=== PATIENT | female | born 1955 ===

== ENCOUNTER 2020-05-14 08:59 | Outpatient (REF) | payer MEDICARE, MEDICAID, SELFPAY | END 2020-05-14 09:00 | disposition home or self-care (01) | LOC: HO.LAB 08:59 | PROVIDERS: PCP Internal Medicine Geriatric Medicine; Visit Provider Internal Medicine | DX: Z20.828 Contact with and (suspected) exposure to other viral communicable diseases (principal) | CPT/HCPCS: 87635 ==

== ENCOUNTER 2020-08-03 09:42 | Outpatient (REF) | payer MEDICARE, MEDICAID, SELFPAY ==
[2020-08-04 12:04] LABS: BV Int Neg Control Negative (Negative); BV Int Pos Control Positive (Positive)
== END 2020-08-03 09:43 | disposition home or self-care (01) ==
LOC: HO.LAB 09:42
PROVIDERS: Visit Provider Obstetrics & Gynecology
DX: Z01.419 Encounter for gynecological examination (general) (routine) without abnormal findings (principal); B37.3 Candidiasis of vulva and vagina
CPT/HCPCS: 87480; 87510; 87660

== ENCOUNTER 2020-08-13 07:50 | Outpatient (REF) | payer MEDICARE, MEDICAID, SELFPAY | END 2020-08-13 07:51 | disposition home or self-care (01) | LOC: HO.LAB 07:50 | PROVIDERS: Visit Provider Internal Medicine | DX: Z20.822 Contact with and (suspected) exposure to COVID-19 (principal) | CPT/HCPCS: 36415; C9803; U0003 ==

== ENCOUNTER → 2020-09-25 15:03 | Outpatient (BNVA) | payer MEDICARE, MEDICAID, SELFPAY | PROVIDERS: PCP Internal Medicine Geriatric Medicine; Visit Provider Nurse Practitioner Family | DX: Z13.89 Encounter for screening for other disorder (principal) | CPT/HCPCS: Q3014 ==

== ENCOUNTER 2020-10-22 09:22 | Outpatient (REF) | payer MEDICARE, MEDICAID, SELFPAY ==
[2020-10-22 12:16] LABS: SARS COV2 PCR INHOUSE NEGATIVE (Negative)
== END 2020-10-22 09:23 | disposition home or self-care (01) ==
LOC: HO.LAB 09:22
PROVIDERS: Visit Provider Internal Medicine
DX: Z20.822 Contact with and (suspected) exposure to COVID-19 (principal)
CPT/HCPCS: C9803; U0003

== ENCOUNTER 2020-12-15 08:36 | Outpatient (REF) | payer MEDICARE, MEDICAID, SELFPAY ==
--- NOTE | ~2020-12-15 | MM_ITS ---
EXAMINATION: MM SCREENING DIGITAL BREAST TOMOSYNTHESIS, BILATERAL CLINICAL INFORMATION: Screening. Asymptomatic. The lifetime risk of breast cancer based on the Tyrer-Cuzick Model is 4%. COMPARISON: Mammography: 07/02/2019, 03/24/2017, 10/14/2015 TECHNIQUE: Digital breast tomosynthesis is performed in both the craniocaudal and mediolateral oblique views along with computer-aided detection (CAD). Synthesized 2D images are generated from the tomosynthesis. FINDINGS: There are scattered areas of fibroglandular density (ACR BI-RADS breast composition Category b). The left breast shows no interval mass or developing density or architectural abnormality. There are scattered bilateral benign vascular and some rim calcifications. The axilla and skin contours are unremarkable. The right CC view has questionable focal radiating lines just lateral to midline 4 cm from nipple on tomography. There is no definite correlate on MLO projection. This may represent incompletely compressed glandular tissue. Patient will be recalled for additional imaging. Remainder right breast unremarkable. MM/MM tomosynthesis screening BI IMPRESSION: 1. Right: Question of focal architectural changes CC view tomography. No correlate on MLO view. This may represent incompletely compressed glandular tissue. 2. Left: No mammographic evidence of malignancy. ASSESSMENT: BI-RADS 0: Incomplete - Need Additional Imaging Evaluation RECOMMENDATION: 1. Additional views of the right breast (3-D spot CC, 3-D rolled CC x2). 2. Targeted ultrasound if warranted after review of the additional views. 3. Radiology department staff will contact the patient for additional imaging. This patient's information was entered into a reminder system with a target due date for their next mammogram.
--- NOTE | ~2020-12-15 | MM_ITS ---
EXAMINATION: BONE DENSITOMETRY CLINICAL INDICATION: Other specified personal risk factors, not elsewhere classified. COMPARISON: Previous BD dated 11/12/2009 and baseline BD dated 10/25/2007. TECHNIQUE: Using a QuickBlox DXA System (software version: 13.1) manufactured by [employer], dual-energy x-ray absorptiometry was performed of the lumbar spine and left hip. The images are of good technical quality. Summary results are attached. FINDINGS: AP SPINE L1-L4: Current: BMD 1.101 g/cm2, Z-score 0.2, T-score -0.7, normal, 1.7% increase from previous, 3.6% decrease from baseline (<5% change is not significant). Prior: BMD 1.083 g/cm2. Baseline: BMD 1.142 g/cm2. LEFT FEMUR, NECK: Current: BMD 0.846 g/cm2, Z-score -0.3, T-score -1.4, osteopenia. Prior: BMD 0.948 g/cm2. Baseline: BMD 0.946 g/cm2. LEFT FEMUR, TOTAL: Current: BMD 0.941 g/cm2, Z-score 0.3, T-score -0.5, normal, 10.0% decrease from previous, 12.1% decrease from baseline (<5% change is not significant). Prior: BMD 1.045 g/cm2. Baseline: BMD 1.071 g/cm2. IDENTIFIED RISK FACTORS: Menopause, history of fracture (adult). HISTORY OF FRACTURE: Other. MEDICATIONS: None listed. MM/XR DEXA axial skeleton IMPRESSION: 1. DIAGNOSIS: Osteopenia based on the lowest T-score value of -1.4 in the femoral neck applying World Health Organization criteria. 2. 10-YEAR FRACTURE RISK PREDICTION, FRAX: Major osteoporotic fracture (clinical spine, forearm, hip or shoulder) 7.9%. Hip fracture 0.8%. 3. Treatment Recommendations: NOF guidelines recommend consideration for treatment in postmenopausal women and men age 50 and older presenting with the following: -A hip or vertebral (clinical or morphometric) fracture. -T-score less than or equal to -2.5 at the femoral neck or spine after appropriate evaluation to exclude secondary causes. -Low bone mass at the hip or spine and a 10-year fracture probability by FRAX of greater than or equal to 3% for hip fracture or greater than or equal to 20% for major osteoporotic fracture based on the [place] adapted WHO algorithm. 4. Other Recommendations: All treatment decisions require clinical judgment and consideration of individual patient factors, including patient preferences, comorbidities, previous drug use, risk factors not captured in the FRAX model (e.g. frailty, falls, vitamin D deficiency, increased bone turnover, interval significant decline in bone density) and possible under or overestimation of fracture risk by FRAX. Additional medical evaluation for secondary cause of low bone mineral density may be appropriate. FUTURE SCAN RECOMMENDATION: People with diagnosed cases of osteoporosis or at high risk for fracture should have regular bone mineral density tests. For patients eligible for Medicare, routine testing is allowed once every 2 years. The testing frequency can be increased to one year for patients who have rapidly progressing disease, those who are receiving or discontinuing medical therapy to restore bone mass, or have additional risk factors.
== END 2020-12-15 08:37 | disposition home or self-care (01) ==
LOC: HO.MAMMO 08:36
PROVIDERS: PCP Internal Medicine Geriatric Medicine; Visit Provider Obstetrics & Gynecology
DX: Z12.31 Encounter for screening mammogram for malignant neoplasm of breast (principal); Z13.820 Encounter for screening for osteoporosis; M85.80 Other specified disorders of bone density and structure, unspecified site; Z78.0 Asymptomatic menopausal state; Z91.89 Other specified personal risk factors, not elsewhere classified; Z87.81 Personal history of (healed) traumatic fracture
CPT/HCPCS: 77063; 77067; 77080

== ENCOUNTER 2020-12-18 10:17 | Outpatient (REF) | payer MEDICARE, MEDICAID, SELFPAY ==
--- NOTE | ~2020-12-18 | MM_ITS ---
EXAMINATION: MM DIAGNOSTIC DIGITAL BREAST TOMOSYNTHESIS, RIGHT CLINICAL INFORMATION: Region of architectural distortion anterior upper outer aspect. COMPARISON: Mammography: 12/15/2020 and studies going back to 10/27/2008 TECHNIQUE: Digital breast tomosynthesis is performed. 2D images are generated from the tomosynthesis. The following views are obtained: Right breast craniocaudal rolled views as well as spot compression right craniocaudal view. FINDINGS: There are scattered areas of fibroglandular density (ACR BI-RADS breast composition Category b). Additional imaging demonstrates persistence of a region of architectural distortion about the upper outer aspect of the right breast approximately 4 cm from the nipple. There appears to be a new 4 mm well-circumscribed density in this location as some architectural distortion is seen to have been present to some degree dating back to 10/27/2008. Patient gives a history of previous breast biopsy but she does not remember if it was the right or left breast. Looking back on old information sheet of 2008, there is mention of a left-sided breast biopsy. We will try to obtain old studies and biopsy from [facility]. This region of architectural distortion may be related to a radial scar and with new 4 mm circumscribed density would consider stereotactic core biopsy. Targeted right breast ultrasound to the upper outer aspect did not demonstrate any region of suspicious cystic or solid mass. No region of suspicious distal sound shadowing appreciated. At the 9 o'clock position approximately 6 cm from nipple, there is a 2 x 3 mm cyst. Results are discussed with the patient at time of visit. MM/MM tomosynthesis added views R IMPRESSION: Region of architectural distortion about the anterior upper outer aspect of the right breast. A 4 mm circumscribed density associated with this region. Patient is unaware of which breast she had a previous biopsy on. By history, her history sheet from 2008 mentions left biopsy however, no reports are available from [facility] and we will attempt to obtain reports and imaging. The region of architectural distortion may represent a radial scar. With this appearance being similar to studies dating back to 2008. ASSESSMENT: BI-RADS 0: Incomplete -attempt to obtain previous studies from [facility]. RECOMMENDATION: Obtain imaging from [facility].
--- NOTE | ~2020-12-18 | US_ITS ---
EXAMINATION: US DIAGNOSTIC ULTRASOUND BREAST, RIGHT CLINICAL INFORMATION: Region of architectural distortion upper outer aspect. COMPARISON: Mammography of same day and studies dating back to October 27, 2008. TECHNIQUE: Ultrasound of the breast is performed with real-time huber scale imaging and color Doppler. FINDINGS: Targeted right breast ultrasound to the upper outer aspect did not demonstrate any region of suspicious cystic or solid mass. No region of suspicious distal sound shadowing appreciated. At the 9:00 position approximately 6 cm from nipple there is a 2 x 3 mm cyst. Results are discussed with the patient at time of visit. US/US breast RT limited IMPRESSION: Region of architectural distortion about the anterior upper outer aspect of the right breast. 4 mm circumscribed density associated with this region. Patient is unaware of this breast should had a previously biopsied on. By history questionnaire from 2008 mentions left biopsy however no reports are available from [facility] and we'll attempt to obtain reports and imaging. The region of architectural distortion may represent a radial scar. With this appearance being similar to studies dating back to 2008. ASSESSMENT: BI-RADS 0: Incomplete -obtain old films. RECOMMENDATION: Obtain imaging from [facility]. .
== END 2020-12-18 10:18 | disposition home or self-care (01) ==
LOC: HO.MAMMO 10:17
PROVIDERS: Visit Provider Obstetrics & Gynecology
DX: N64.89 Other specified disorders of breast (principal)
CPT/HCPCS: 76642; 77061; 77065

== ENCOUNTER → 2020-12-30 14:58 | Outpatient (BNVA) | payer MEDICARE, MEDICAID, SELFPAY | PROVIDERS: PCP Internal Medicine Geriatric Medicine; Referring Provider Internal Medicine Geriatric Medicine; Visit Provider Surgery | DX: R92.8 Other abnormal and inconclusive findings on diagnostic imaging of breast (principal) | CPT/HCPCS: 99202 ==

== ENCOUNTER 2020-12-31 07:54 | Outpatient (REF) | payer MEDICARE, MEDICAID, SELFPAY ==
--- NOTE | ~2020-12-31 | MM_ITS ---
EXAMINATION: STEREOTACTIC TOMOSYNTHESIS-GUIDED VACUUM-ASSISTED BREAST BIOPSY, RIGHT SPECIMEN RADIOGRAPH, RIGHT POST PROCEDURE DIGITAL MAMMOGRAM, RIGHT CLINICAL INFORMATION: Region of architectural distortion central superior aspect right breast. COMPARISON: December 18, 2020 and studies dating back to July 26, 2011. TECHNIQUE/PROCEDURE: Informed consent was obtained from the patient after discussion of the benefits, risks, and alternatives to biopsy today. Patient appeared to understand. Gave opportunity for questions. Patient signed consent form. BIOPSY TABLE: Bitbar Affirm Prone Biopsy System. LESION: Distortion. LOCAL ANESTHESIA: 8 mL 1% lidocaine; 10 mL 1% lidocaine with epinephrine. DERMATOTOMY: Single skin maria del rosario dermatotomy performed. NEEDLE: [employer] Eviva 9-gauge vacuum assisted core biopsy device. APPROACH: craniocaudal. TARGETING: Digital breast tomosynthesis used for targeting. CORES: 12. CLIP: [employer] SecurMark Barrel-shaped marker. SPECIMEN RADIOGRAPH: Specimen radiograph is taken in separate room using digital mammography. POST PROCEDURE UNILATERAL DIGITAL MAMMOGRAM: The post biopsy mammogram is performed in separate room using separate digital mammography equipment from the biopsy procedure. Craniocaudal and 90 degree mediolateral views are obtained. There are scattered areas of fibroglandular density (breast composition category: b). The clip marker is in position. The patient tolerated the procedure well. No immediate complications. Home instructions reviewed with the patient. Final pathology results are pending. MM/MM stereotactic biopsy RT IMPRESSION: 1. Digital tomosynthesis-guided core biopsy right breast with clip placement. 2. Specimen radiograph taken and post procedure mammogram. There is satisfactory positioning of the biopsy clip. 3. Final pathology results pending. An addendum report will be issued.
== END 2020-12-31 07:55 | disposition home or self-care (01) ==
LOC: HO.MAMMO 07:54
PROVIDERS: Visit Provider Surgery
DX: R92.8 Other abnormal and inconclusive findings on diagnostic imaging of breast (principal)
CPT/HCPCS: 19081; 88305; A4648

== ENCOUNTER → 2021-01-05 08:55 | Outpatient (BNVA) | payer MEDICARE, MEDICAID, SELFPAY | PROVIDERS: PCP Internal Medicine Geriatric Medicine; Visit Provider Surgery | DX: R92.8 Other abnormal and inconclusive findings on diagnostic imaging of breast (principal) | CPT/HCPCS: 99212 ==

== ENCOUNTER 2021-01-27 08:48 | Day surgery (SDC) | payer MEDICARE, MEDICAID, SELFPAY ==
--- NOTE | 2021-01-26 10:47 | P.CONAN_ITS ---
Documented by User: Torie Maldonado 01/26/21 10:48 HPI - Anesthesia Eval Consult details Narrative: 65yo F for Colonoscopy PMFSH Active Problems Active Problems: All Active Problems (Updated 01/20/21 @ 14:06 by Yuni Vega) Osteopenia (Acute) Abnormal mammogram of right breast (Acute) Past Medical History Medical History (Updated 01/20/21 @ 14:06 by Yuni Vega) Asthma GERD (gastroesophageal reflux disease) HTN (hypertension) Hyperlipidemia Rheumatoid arthritis Vaginal atrophy Family History Family History Mother HTN (hypertension) Surgical History Surgical History (Updated 01/20/21 @ 14:07 by Yuni Vega) H/O colonoscopy H/O knee surgery History of cholecystectomy History of tubal ligation Hx of hand surgery Social History Social History Household Members: Family Alcohol intake: current Alcohol intake frequency: does not drink Patient Tobacco Use Status: Never used Tobacco Use of substances other than those prescribed or required for medical reasons: No Have you been hit, kicked, punched, or otherwise hurt by someone within the past year? If so, by whom?: No Are you DNR?: No Advance Directives: No Advance Directives Information Provided: Yes Gender identity: female Meds Allergies Allergy/AdvReac Type Severity Reaction Status Date / Time AMBROSE Inhibitors Allergy Mild Rash Verified 01/20/21 14:09 Home Medications Medication Instructions Recorded Confirmed Last Taken Type albuterol sulfate 90 mcg/actuation 1 inh INHALATION Q4H PRN 12/30/20 01/20/21 Unknown History aerosol inhaler chlorthalidone 25 mg tablet 25 mg PO DAILY 12/30/20 01/20/21 Unknown History fluticasone propionate 50 1 spray INTRANASAL DAILY 12/30/20 01/20/21 Unknown History mcg/actuation nasal spray,suspension montelukast 10 mg tablet 10 mg PO QPM 12/30/20 01/20/21 Unknown History omeprazole 20 mg capsule,delayed 20 mg PO DAILY 12/30/20 01/20/21 Unknown History release pravastatin 20 mg tablet 20 mg PO DAILY 12/30/20 01/20/21 Unknown History sertraline 100 mg tablet 100 mg PO BID 12/30/20 01/20/21 Unknown History topiramate 50 mg tablet 50 mg PO DAILY 12/30/20 01/20/21 Unknown History Exam Exam Date and Time: January 26, [id number] Assessment and Plan Assessment Anesthesia Assessment: Chart Reviewed Documented by User: Faby Baptiste 01/27/21 09:57 [facility] Past Medical History Medical History (Updated 01/20/21 @ 14:06 by Yuni Vega) Asthma GERD (gastroesophageal reflux disease) HTN (hypertension) Hyperlipidemia Rheumatoid arthritis Vaginal atrophy Family History Family History Mother HTN (hypertension) Surgical History Surgical History (Updated 01/20/21 @ 14:07 by Yuni Vega) H/O colonoscopy H/O knee surgery History of cholecystectomy History of tubal ligation Hx of hand surgery Social History Social History Household Members: Family Alcohol intake: current Alcohol intake frequency: does not drink Patient Tobacco Use Status: Never used Tobacco Use of substances other than those prescribed or required for medical reasons: No Have you been hit, kicked, punched, or otherwise hurt by someone within the past year? If so, by whom?: No Are you DNR?: No Advance Directives: No Advance Directives Information Provided: Yes Gender identity: female Meds Allergies Allergy/AdvReac Type Severity Reaction Status Date / Time AMBROSE Inhibitors Allergy Mild Rash Verified 01/20/21 14:09 Home Medications Medication Instructions Recorded Confirmed Last Taken Type albuterol sulfate 90 mcg/actuation 1 inh INHALATION Q4H PRN 12/30/20 01/20/21 Unknown History aerosol inhaler chlorthalidone 25 mg tablet 25 mg PO DAILY 12/30/20 01/20/21 Unknown History fluticasone propionate 50 1 spray INTRANASAL DAILY 12/30/20 01/20/21 Unknown History mcg/actuation nasal spray,suspension montelukast 10 mg tablet 10 mg PO QPM 12/30/20 01/20/21 Unknown History omeprazole 20 mg capsule,delayed 20 mg PO DAILY 12/30/20 01/20/21 Unknown History release pravastatin 20 mg tablet 20 mg PO DAILY 12/30/20 01/20/21 Unknown History sertraline 100 mg tablet 100 mg PO BID 12/30/20 01/20/21 Unknown History topiramate 50 mg tablet 50 mg PO DAILY 12/30/20 01/20/21 Unknown History Exam Airway Mallampati Class: II TM Dist: >3cm Denture: Upper and Lower Heart: rrr Lungs: cta Assessment and Plan Assessment Anesthesia Assessment: Anesthesia Plan Discussed and Chart Reviewed Final Anesthetic Review NPO: Yes (Sip water with med) ASA Class: III Final Preanesthetic Review: No Changes in Pt Med Stat and Consent Obtained/Reviewed Patient Risk: Intermediate Procedure Risk: Intermediate Anesthetic Plan Anesthetic Plan: MAC: Disposition: Standard PACU
[2021-01-27 09:00] VITALS: BMI 38.0
[2021-01-27 09:30] VITALS: BP 173/75; PULSE 89; RESP 18; TEMP 37.2; O2SAT 98
--- NOTE | 2021-01-27 09:40 | MHC.SHP ---
Pre-Procedural Eval Section A Date of Service: 01/27/21 Section B Chief Complaint: screening Relevant Family History (Specify if Yes): No Relevant Social History: None Present Medications: see Short Stay Collaborative assessment Medical History: Significant History (Asthma GERD (gastroesophageal reflux disease) HTN (hypertension) Hyperlipidemia Rheumatoid arthritis Vaginal atrophy) History of Previous Operations: Relevant previous surgery/procedure and date(s) (H/O colonoscopy H/O knee surgery History of cholecystectomy History of tubal ligation Hx of hand surgery) Allergies: Allergies Allergy/AdvReac Type Severity Reaction Status Date / Time AMBROSE Inhibitors Allergy Mild Rash Verified 01/20/21 14:09 Review of Systems Sugical H&P ROS: Negative: Constitution, Cardiovascular, Respiratory, Neurological, Psychiatric, Hem-Onc, Allergic/Immunologic, Gastrointestinal, Genitourinary, Musculoskeletal, Integumentary, Endocrine and Eyes/Ears/Nose/Throat Exam Surgical H&P Exam: Normal: HEENT, Normal: Heart, Normal: Lungs, Normal: Extremities, Normal: Abdomen, Normal: Skin and Normal: Neurological Plan Diagnosis/Plan: Unchanged I have reviewed the history and physical and performed a pertinent physical examination on my patient. No changes have occurred unless specified.
--- NOTE | 2021-01-27 10:08 | P.BOP_ITS ---
Brief Operative Note Date of Service: 01/27/21 Pre-op diagnosis: colon screening Post-op diagnosis: same Procedure: see op note Surgeon: Isaiah Camargo MD Anesthesia: MAC Was an General Manager [employer] Production used for this Procedure?: No Estimated blood loss (mL): 0 Condition: stable Disposition: PACU
--- NOTE | 2021-01-27 10:08 | W.PM.OPN ---
Operative Note Operative Note Date of Service: 01/27/21 Narrative: Operative Information Procedure Description: Colonoscopy COLONOSCOPY Instrument: Olympus variable stiffness pediatric scope 190L Colonoscopy Monitoring: Vital signs and clinical assessment, continuous EKG monitoring, Pulse oximetry, Carbon Dioxide monitoring and blood pressure monitoring were done throughout the procedure. Colon withdrawal time was 14 minutes. Procedure: The patient was placed in the left lateral decubitis position and pre-procedure medications were administered. After a digital rectal examination of the ano-rectum, the video colonoscope was inserted into the rectum and advanced through the colon to the cecum/TI. The colonoscope was slowly withdrawn in a retrograde panoramic fashion and the colon mucosa was carefully examined including a retroflexed view of the rectum. Findings and interventions are described below. Procedure Difficulty:moderate due to looping Findings: Terminal Ileum-normal Cecum:normal, one prominent fold vs sessile polyp at appendiceal orifice 5-7 mm removed with forceps Ascending Colon: normal Transverse Colon -normal Descending Colon:normal Sigmoid Colon: normal Rectum: Retroflexion with small internal hemorrhoids, grade I Anorectum - normal Colon preparation: [place] Bowel Preparation Scale Right colon; 2 Transverse colon: 2 Left colon; 2 (0 = Unprepared colon segment with mucosa not seen due to solid stool that cannot be cleared. 1 = Portion of mucosa of the colon segment seen, but other areas of the colon segment not well seen due to staining, residual stool and/or opaque liquid. 2 = Minor amount of residual staining, small fragments of stool and/or opaque liquid, but mucosa of colon segment seen well. 3 = Entire mucosa of colon segment seen well with no residual staining, small fragments of stool or opaque liquid) Impression and Post Procedure Diagnosis: polyp internal hemorrhoids Plan: High fiber diet leaflet Avoid straining at stool, epsom salts and sitz bath, anusol supps or cream Repeat Colonoscopy in 5 years if adenoma, 10 yrs if benign or earlier if clinically indicated Above findings were reviewed with the patient and relevant handouts were provided if indicated.
[2021-01-27] MEDS: Lactated Ringers 1,000 ML 50 ML IVCONT (10:20)
[2021-01-27 10:52] VITALS: BP 101/61; PULSE 62; RESP 12; TEMP 36.1; O2SAT 97
[2021-01-27 11:07] VITALS: BP 92/65; PULSE 69; RESP 14; O2SAT 96
[2021-01-27 11:23] VITALS: BP 149/78; PULSE 66; RESP 18; TEMP 37; O2SAT 98
== END 2021-01-27 12:25 | disposition home or self-care (01) ==
PROVIDERS: PCP Internal Medicine Geriatric Medicine; Visit Provider Internal Medicine Gastroenterology
PROC: 0DJD8ZZ Inspection of Lower Intestinal Tract, Via Natural or Artificial Opening Endoscopic (ICD-10-PCS; CPT 45378; principal; 2021-01-27 10:00)
DX: Z12.11 Encounter for screening for malignant neoplasm of colon (principal); D12.0 Benign neoplasm of cecum; K64.0 First degree hemorrhoids; K21.9 Gastro-esophageal reflux disease without esophagitis; M06.9 Rheumatoid arthritis, unspecified; E78.5 Hyperlipidemia, unspecified; Z79.899 Other long term (current) drug therapy; Z79.51 Long term (current) use of inhaled steroids; Z90.49 Acquired absence of other specified parts of digestive tract; Z88.8 Allergy status to other drugs, medicaments and biological substances
CPT/HCPCS: 45380; 88305

== ENCOUNTER → 2021-02-15 13:52 | Outpatient (BNVA) | payer MEDICARE, MEDICAID, SELFPAY | PROVIDERS: Visit Provider Nurse Practitioner Family | DX: Z13.89 Encounter for screening for other disorder (principal) | CPT/HCPCS: Q3014 ==

== ENCOUNTER 2021-06-29 15:02 | Outpatient (REF) | payer MEDICARE, MEDICAID, SELFPAY ==
--- NOTE | ~2021-06-29 | MM_ITS ---
EXAMINATION: MM DIAGNOSTIC DIGITAL MAMMOGRAPHY, RIGHT CLINICAL INFORMATION: Six-month follow-up benign right stereotactic biopsy 12/31/2020 performed for subtle architectural changes. Pathology consistent with benign breast tissue with fibrocystic changes. Today's exam represents new baseline post sampling. The lifetime risk of breast cancer based on the Tyrer-Cuzick Model is 3%. COMPARISON: Mammography: 12/31/2020, 12/18/2020, 12/15/2020 (BI-RADS 0), 07/02/2019 TECHNIQUE: Digital mammography is performed in craniocaudal and mediolateral oblique views along with computer-aided detection (CAD). Additional spot CC and spot MLO views are obtained. FINDINGS: There are scattered areas of fibroglandular density (ACR BI-RADS breast composition Category b). There is a biopsy clip marker anterior 11:30 o'clock position. There are increased architectural changes related to the biopsy. Review of the stereotactic report notes 12 cores obtained. The clip marker is in expected position to the targeted area without accordion effect. The remainder of the right breast is unremarkable. Management plan is for diagnostic mammography at time of annual bilateral exam, due in 6 months. Results are discussed with the patient at time of visit, using an car stower. MM/MM diagnostic mammo unilat RT IMPRESSION: 1. Minor scarring at site of stereotactic sampling. Clip marker is in expected position. 2. This exam will serve as baseline for followup. ASSESSMENT: BI-RADS 3: Probably Benign RECOMMENDATION: Diagnostic mammography at time of next annual exam, due in 6 months. This patient's information was entered into a reminder system with a target due date for their next mammogram.
== END 2021-06-29 15:03 | disposition home or self-care (01) ==
LOC: HO.MAMMO 15:02
PROVIDERS: PCP Internal Medicine Geriatric Medicine; Visit Provider Obstetrics & Gynecology
DX: R92.8 Other abnormal and inconclusive findings on diagnostic imaging of breast (principal); Z98.890 Other specified postprocedural states
CPT/HCPCS: 77065

== ENCOUNTER 2021-07-06 07:36 | Outpatient (REF) | payer MEDICARE, MEDICAID, SELFPAY | END 2021-07-06 07:37 | disposition home or self-care (01) | LOC: HO.LAB 07:36 | PROVIDERS: Visit Provider Internal Medicine | DX: Z20.822 Contact with and (suspected) exposure to COVID-19 (principal) | CPT/HCPCS: C9803; U0003; U0005 ==

== ENCOUNTER 2021-12-29 13:25 | Outpatient (REF) | payer MEDICARE, MEDICAID, SELFPAY ==
--- NOTE | ~2021-12-29 | MM_ITS ---
EXAMINATION: MM DIAGNOSTIC DIGITAL BREAST TOMOSYNTHESIS, BILATERAL CLINICAL INFORMATION: Follow-up status post right breast material biopsy. Due for yearly mammogram. The lifetime risk of breast cancer based on the Tyrer-Cuzick Model is 3.7%. COMPARISON: Mammography: June 29, 2021 and studies dating back to October 14, 2015 TECHNIQUE: Digital breast tomosynthesis is performed in both the craniocaudal and mediolateral oblique views along with computer-aided detection (CAD). Synthesized 2D images are generated from the tomosynthesis. FINDINGS: There are scattered areas of fibroglandular density (ACR BI-RADS breast composition Category b). There are no new significant masses, abnormal calcifications, or other abnormalities. Small region of architectural distortion associated with right breast biopsy and clip. Results are provided to the patient at time of visit by the technologist. MM/MM tomosynthesis diagnostic BI IMPRESSION: There are no significant changes from prior study. ASSESSMENT: BI-RADS 2: Benign RECOMMENDATION: Routine annual mammography screening due in 12 months. This patient's information was entered into a reminder system with a target due date for their next mammogram.
== END 2021-12-29 13:26 | disposition home or self-care (01) ==
LOC: HO.MAMMO 13:25
PROVIDERS: Visit Provider Internal Medicine Geriatric Medicine
DX: R92.2 Inconclusive mammogram (principal)
CPT/HCPCS: 77062; 77066

== ENCOUNTER 2022-06-16 20:23 | Emergency (ER) | payer MEDICARE, MEDICAID, SELFPAY ==
[2022-06-16] VITALS (7 sets, daily range): BP systolic 167–202; BP diastolic 73–99; PULSE 99–112; RESP 18–21; TEMP 36.6–36.8; O2SAT 95–99; BMI 32.8
--- NOTE | ~2022-06-16 | XR_ITS ---
EXAMINATION: XR CHEST CLINICAL INFORMATION: Cough and shortness of breath COMPARISON: 08/29/2019 TECHNIQUE: Frontal view of the chest was obtained. FINDINGS: No significant abnormality is noted involving the heart, lungs, mediastinum, bony thorax or soft tissues. XR/XR chest 1V IMPRESSION: Unremarkable examination.
--- NOTE | 2022-06-16 21:01 | ECG_ITS ---
Test Reason : UPPER RESP Blood Pressure : / mmHG Vent. Rate : 103 BPM Atrial Rate : 103 BPM P-R Int : 142 ms QRS Dur : 086 ms QT Int : 356 ms P-R-T Axes : 022 015 061 degrees QTc Int : 466 ms Sinus tachycardia Otherwise normal ECG When compared with ECG of 29-AUG-2019 06:56, No significant change was found Referred By: Generic ED Physician Electronically Signed By:RONI CACERES MD
[2022-06-16 21:17] LABS: MANUAL DIFF FLAG NO
[2022-06-16 21:18] LABS: Basophils Percent Auto 0.2 % (0-2); Eosinophils Absolute Auto 0.2 X10*3/uL (0.0-0.4); Eosinophils Percent Auto 1.5 % (0-4); Hematocrit 38.9 % (37.0-47.0); Hemoglobin 12.3 g/dl (12.0-16.0); Imm Gran Abs Auto 0.02 X10*3/uL (0.00-0.03); Imm Gran Pct Auto 0.2 % (0.0-0.4); Lymphocytes Absolute Auto 1.6 X10*3/uL (1.2-4.9); Lymphocytes Percent Auto 15.6 % (20-40); Mean Corpuscular HGB Conc 31.6 g/dl (31.0-35.0); Mean Corpuscular Hemoglobin 26.7 pg (27.0-33.0); Mean Corpuscular Volume 84.6 fL (80.0-98.0); Mean Platelet Volume 9.6 fL (9.4-12.3); Monocytes Absolute Auto 0.8 X10*3/uL (0.1-1.2); Monocytes Percent Auto 7.9 % (2-11); Neutrophils Absolute Auto 7.4 x10*3/uL (2.0-8.3); Neutrophils Percent Auto 74.6 % (45-73); Platelet Count 187 X10*3/uL (160-400); Red Cell Distribution Width 13.7 % (11.0-16.0)
--- NOTE | 2022-06-16 21:24 | ED.URI ---
HPI - URI/Sore Throat General Chief Complaint: Upper Respiratory Symptoms Stated Complaint: Asthma, cough Time Seen by Provider: 06/16/22 21:22 Source: patient Mode of arrival: ambulatory Limitations: no limitations History of Present Illness HPI Narrative: Patient been feeling congested for the last 2 days with history of asthma and tried to use a nebulizing treatment without much response coughing with mucoid expectoration no fever does have a running nose is clear no other family member sick Related Data Home Medications Medication Instructions Recorded Confirmed albuterol sulfate 90 mcg/actuation 1 inh inhalation Q4H PRN Wheezing 12/30/20 01/20/21 aerosol inhaler chlorthalidone 25 mg tablet 25 mg PO DAILY 12/30/20 01/20/21 fluticasone propionate 50 1 spray intranasal DAILY 12/30/20 01/20/21 mcg/actuation nasal spray,suspension montelukast 10 mg tablet 10 mg PO QPM 12/30/20 01/20/21 omeprazole 20 mg capsule,delayed 20 mg PO DAILY 12/30/20 01/20/21 release pravastatin 20 mg tablet 20 mg PO DAILY 12/30/20 01/20/21 sertraline 100 mg tablet 100 mg PO BID 12/30/20 01/20/21 topiramate 50 mg tablet 50 mg PO DAILY 12/30/20 01/20/21 Previous Rx's Medication Instructions Recorded bisacodyl 5 mg tablet,delayed 10 mg PO ONCE 1 day #2 tabs 09/25/20 release (Dulcolax (bisacodyl)) calcium carbonate 600 mg calcium 1,200 mg PO DAILY #180 tabs 12/16/20 (1,500 mg) tablet cholecalciferol (vitamin D3) 10 10 mcg PO DAILY #90 caps 12/16/20 mcg (400 unit) capsule (Vitamin D3) albuterol sulfate 2.5 mg/3 mL 2.5 mg (3 mL) inhalation Q4-6H PRN 06/17/22 (0.083 %) solution for nebulization shortness of breath or wheezing #90 mL prednisone 20 mg tablet 40 mg PO DAILY #10 tabs 06/17/22 Allergies Allergy/AdvReac Type Severity Reaction Status Date / Time AMBROSE Inhibitors Allergy Mild Rash Verified 02/15/21 13:53 Review of Systems Review of Systems: Yes all other systems are reviewed and are negative PMFSH Past Medical History Medical History Asthma GERD (gastroesophageal reflux disease) HTN (hypertension) Hyperlipidemia Rheumatoid arthritis Vaginal atrophy Surgical History H/O colonoscopy H/O knee surgery History of cholecystectomy History of tubal ligation Hx of hand surgery Family History Family History Mother HTN (hypertension) Social History Social History Household Members: Family Alcohol intake: never Patient Tobacco Use Status: Never used Tobacco Smoked in Last 30 Days: No Use of substances other than those prescribed or required for medical reasons: No Advance Directives: No Advance Directives Information Provided: No Gender identity: Female Physical Exam Vital Signs: Vital Signs: Last Vital Signs Temp 98.7 F 06/17/22 00:37 Pulse 111 H 06/17/22 00:37 Resp 18 06/17/22 00:37 BP 136/69 06/17/22 00:37 Pulse Ox 97 06/17/22 00:37 O2 Del Method 06/17/22 00:37 BMI result Body Mass Index 32.8 Appearance: Alert. Oriented X3. No acute distress. Eyes:normal ENT: Pharynx normal. Oral Mucosa moist clear rhinorrhea Neck: Normal inspection. Neck supple. CVS: Normal heart rate and rhythm. Pulses normal. Respiratory: No respiratory distress. Equal air entry bilateral, bilateral wheezing no rales Abdomen: Soft and nontender. Bowel sounds are present, Skin: Skin warm and dry. Normal skin color. Normal skin turgor. Extremities: No lower extremity edema. No calf tenderness Neuro: Oriented X 3. No motor deficit. Medications Administered Discontinued Medications Generic Name Dose Route Start Last Admin Trade Name Freq PRN Reason Stop Dose Admin Albuterol Sulfate 2.5 mg/ 5 mg 06/16/22 23:38 06/16/22 23:46 Albuterol Sulfate 2.5 mg INHALE 06/16/22 23:39 5 mg ONCE ONE Administration Albuterol Sulfate 2.5 mg/ 0 mg 06/16/22 21:35 06/16/22 21:49 Albuterol/Ipratropium 3 ml INHALE 06/16/22 21:36 1 each ONCE ONE Administration Methylprednisolone Sodium Succinate 125 mg 06/16/22 21:35 06/16/22 21:55 Methylprednisolone Sod Succ 125 Mg/2 Ml Vial IVPUSH 06/16/22 21:36 125 mg ONCE ONE Administration MDM - URI/Sore Throat MDM Narrative Medical decision making narrative: Patient feeling better after nebulizing treatment discharge patient home on prednisone advised to continue albuterol inhaler/nebulizing treatment Lab Data Attestation: I reviewed the patient's lab results. Result diagrams: 06/16/22 21:10 06/16/22 21:10 Labs: Lab Results 06/16/22 06/16/22 06/16/22 Range/Units 21:10 21:10 21:15 WBC 10.0 (4.8-10.8) X10*3/uL RBC 4.60 (4.20-5.50) X10*6/uL Hgb 12.3 (12.0-16.0) g/dl Hct 38.9 (37.0-47.0) % MCV 84.6 (80.0-98.0) fL MCH 26.7 L (27.0-33.0) pg MCHC 31.6 (31.0-35.0) g/dl RDW 13.7 (11.0-16.0) % Plt Count 187 (160-400) X10*3/uL MPV 9.6 (9.4-12.3) fL Immature Gran % (Auto) 0.2 (0.0-0.4) % Neut % (Auto) 74.6 H (45-73) % Lymph % (Auto) 15.6 L (20-40) % [place] % (Auto) 7.9 (2-11) % Eos % (Auto) 1.5 (0-4) % Baso % (Auto) 0.2 (0-2) % Lymph # (Auto) 1.6 (1.2-4.9) X10*3/uL [place] # (Auto) 0.8 (0.1-1.2) X10*3/uL Eos # (Auto) 0.2 (0.0-0.4) X10*3/uL Baso # (Auto) 0.0 (0.0-0.2) X10*3/uL Abs Immat Gran (auto) 0.02 (0.00-0.03) X10*3/uL Absolute Neuts (auto) 7.4 (2.0-8.3) x10*3/uL Absolute Nucleated RBC 0.000 (0.0-0.012) X10*3/uL Nucleated RBC % (auto) 0.0 (0.0-0.2) /100WBC Sodium 145 (135-145) mmol/L Potassium 4.2 (3.3-5.1) mmol/L Chloride 107 (96-108) mmol/L Carbon Dioxide 26 (22-29) mmol/L Anion Gap 16 (12-20) BUN 19 H (9-16) mg/dL Creatinine 0.91 (0.5-1.4) mg/dL Estim Creat Clear Calc 64.3 Estimated GFR > 60 Random Glucose 96 (60-115) mg/dL Calcium 9.9 (8.4-10.2) mg/dL Influenza Type A (PCR) NEGATIVE (Negative) Influenza Type B (PCR) NEGATIVE (Negative) RSV RNA Qual (PCR) NEGATIVE (Negative) SARS-CoV-2 RNA (RT-PCR) NEGATIVE (Negative) Discharge Plan Discharge Clinical Impression: Acute asthmatic bronchitis Patient Disposition: Home, Self-Care Instructions: Asthma (ED) Additional Instructions: Use albuterol nebulizing/inhaler as advised every 4-6 hours Prednisone as prescribed Follow with PCP if not better Prescriptions: New albuterol sulfate 2.5 mg /3 mL (0.083 %) solution for nebulization 2.5 mg inhalation Q4-6H PRN (Reason: shortness of breath or wheezing) Qty: 90 0RF prednisone 20 mg tablet 40 mg PO DAILY Qty: 10 0RF No Action calcium carbonate 600 mg calcium (1,500 mg) tablet 1,200 mg PO DAILY Qty: 180 3RF cholecalciferol (vitamin D3) [Vitamin D3] 10 mcg (400 unit) capsule 10 mcg PO DAILY Qty: 90 3RF topiramate 50 mg tablet 50 mg PO DAILY sertraline 100 mg tablet 100 mg PO BID omeprazole 20 mg capsule,delayed release(DR/EC) 20 mg PO DAILY albuterol sulfate 90 mcg/actuation HFA aerosol inhaler 1 inh inhalation Q4H PRN (Reason: Wheezing) fluticasone propionate 50 mcg/actuation spray,suspension 1 spray intranasal DAILY pravastatin 20 mg tablet 20 mg PO DAILY montelukast 10 mg tablet 10 mg PO QPM chlorthalidone 25 mg tablet 25 mg PO DAILY bisacodyl [Dulcolax (bisacodyl)] 5 mg tablet,delayed release (DR/EC) 10 mg PO ONCE 1 Days Qty: 2 0RF Rx Instructions: take 2 tabs at noon the day before your colonoscopy Interventions: ED Discharge Assessment Last Done: 06/17/22 00:38 Discharge Date/Time: 06/17/22 00:42 Print Language: Yemeni
[2022-06-16 21:34] LABS: Anion Gap 16 (12-20); Blood Urea Nitrogen 19 mg/dL (9-16); Calcium 9.9 mg/dL (8.4-10.2); Carbon Dioxide 26 mmol/L (22-29); Chloride 107 mmol/L (96-108); Creatinine Clr Calc Pharmacy 64.3; Estimated Glomerular Filt Rate > 60; Glucose Random 96 mg/dL (60-115); Potassium 4.2 mmol/L (3.3-5.1); Sodium 145 mmol/L (135-145)
[2022-06-16] MEDS: Albuterol Sulfate 2.5 MG, Albuterol/Iprat 2.5/0.5MG 3 ML 3 ML INHALE (21:49)
[2022-06-16] MEDS: methylPREDNISolone Sod Succ 125 MG/2 ML VIAL IVPUSH (21:55)
[2022-06-16 22:00] LABS: Influenza A PCR NEGATIVE (Negative); Influenza B PCR NEGATIVE (Negative); Resp Syncy Virus RNA Qual PCR NEGATIVE (Negative); SARS COV2 PCR INHOUSE NEGATIVE (Negative)
[2022-06-16] MEDS: Albuterol Sulfate 2.5 MG, Albuterol Sulfate (0.083%) 2.5 MG 5 MG INHALE (23:46)
[2022-06-17] VITALS: BP 138/69; PULSE 124; RESP 14; TEMP 37.1; O2SAT 95
[2022-06-17 00:37] VITALS: BP 136/69; PULSE 111; RESP 18; TEMP 37.1; O2SAT 97
== END 2022-06-17 00:42 | disposition home or self-care (01) ==
PROVIDERS: Emergency Provider Internal Medicine; PCP Internal Medicine Geriatric Medicine
DX: J45.909 Unspecified asthma, uncomplicated (principal); Z20.822 Contact with and (suspected) exposure to COVID-19; I10 Essential (primary) hypertension; E78.5 Hyperlipidemia, unspecified; Z79.02 Long term (current) use of antithrombotics/antiplatelets; Z79.899 Other long term (current) drug therapy
CPT/HCPCS: 0241U; 36415; 71045; 80048; 85025; 93005; 94640; 96374; 99284; 99285; J2930

== ENCOUNTER 2022-09-09 08:03 | Outpatient (REF) | payer MEDICARE, MEDICAID, SELFPAY ==
--- NOTE | ~2022-09-09 | XR_ITS ---
EXAMINATION: XR HIP, RIGHT CLINICAL INFORMATION: Severe right hip pain COMPARISON: None TECHNIQUE: Two views of the right hip. FINDINGS: Bones and soft tissues are normal. No fracture. Alignment is anatomic. Hip joint space is maintained. XR/XR hip RT min 2V IMPRESSION: Normal right hip.
== END 2022-09-09 08:04 | disposition home or self-care (01) ==
LOC: HO.XRAY 08:03
PROVIDERS: PCP Internal Medicine Geriatric Medicine; Visit Provider Internal Medicine Geriatric Medicine
DX: M25.551 Pain in right hip (principal)
CPT/HCPCS: 73502

== ENCOUNTER 2022-12-16 07:55 | Outpatient (REF) | payer MEDICARE, MEDICAID, SELFPAY ==
--- NOTE | ~2022-12-16 | XR_ITS ---
EXAMINATION: XR knee standing BI, XR knee LT 2V CLINICAL INFORMATION: Reason for Exam M25.569 - Pain in unspecified knee COMPARISON: None available at the time of this dictation. TECHNIQUE: Bilateral knee frontal standing, left Lateral view and patella sunrise view. FINDINGS: BONES: No fracture or dislocation is present. Cortical irregularity in the proximal fibula likely an old healed fracture. Intact Hardware plate and screws through the proximal right tibia seen on the frontal view. JOINTS: Narrowing of joint spaces and developed osteophytes from the edges of articular surfaces suggest degenerative osteoarthritis. SOFT TISSUE: Normal XR/XR knee standing BI IMPRESSION: Tricompartment moderate to early severe degenerative osteoarthritis. No significant knee joint effusion. An old healed fracture of the left fibula.
--- NOTE | ~2022-12-16 | XR_ITS ---
EXAMINATION: XR knee standing BI, XR knee LT 2V CLINICAL INFORMATION: Reason for Exam M25.569 - Pain in unspecified knee COMPARISON: None available at the time of this dictation. TECHNIQUE: Bilateral knee frontal standing, left Lateral view and patella sunrise view. FINDINGS: BONES: No fracture or dislocation is present. Cortical irregularity in the proximal fibula likely an old healed fracture. Intact Hardware plate and screws through the proximal right tibia seen on the frontal view. JOINTS: Narrowing of joint spaces and developed osteophytes from the edges of articular surfaces suggest degenerative osteoarthritis. SOFT TISSUE: Normal XR/XR knee LT 2V IMPRESSION: Tricompartment moderate to early severe degenerative osteoarthritis. No significant knee joint effusion. An old healed fracture of the left fibula.
== END 2022-12-16 07:56 | disposition home or self-care (01) ==
LOC: HO.HOSX 07:55
PROVIDERS: Visit Provider Physician Assistant
DX: M17.12 Unilateral primary osteoarthritis, left knee (principal)
CPT/HCPCS: 20610; 73560; 73565; 99202; J1040

== ENCOUNTER 2023-01-02 10:06 | Outpatient (REF) | payer MEDICARE, MEDICAID, SELFPAY ==
--- NOTE | ~2023-01-02 | MM_ITS ---
EXAMINATION: MM SCREENING DIGITAL BREAST TOMOSYNTHESIS, BILATERAL CLINICAL INFORMATION: Screening. Asymptomatic. Benign bight stereotactic biopsy for architectural changes central upper right breast 12/31/2020. The lifetime risk of breast cancer based on the Tyrer-Cuzick Model is 4%. COMPARISON: Mammography: 12/29/2021, 06/29/2021, 12/31/2020 TECHNIQUE: Digital breast tomosynthesis is performed in both the craniocaudal and mediolateral oblique views along with computer-aided detection (CAD). Synthesized 2D images are generated from the tomosynthesis. FINDINGS: There are scattered areas of fibroglandular density (ACR BI-RADS breast composition Category b). Parenchymal pattern is similar to prior study and there is no significant mass, interval architectural abnormality, or abnormal calcifications. Biopsy clip marker again seen in the anterior 11:00 right breast with surrounding minor scarring similar to prior study. There are scattered bilateral benign vascular and some rim calcifications. The axilla are unremarkable. MM/MM tomosynthesis screening BI IMPRESSION: No mammographic evidence of malignancy. ASSESSMENT: BI-RADS 2: Benign RECOMMENDATION: Routine annual mammography screening. This patient's information was entered into a reminder system with a target due date for their next mammogram.
== END 2023-01-02 10:07 | disposition home or self-care (01) ==
LOC: HO.MAMMO 10:06
PROVIDERS: PCP Internal Medicine Geriatric Medicine; Visit Provider Internal Medicine Geriatric Medicine
DX: Z12.31 Encounter for screening mammogram for malignant neoplasm of breast (principal)
CPT/HCPCS: 77063; 77067

== ENCOUNTER 2023-05-23 10:48 | Outpatient (REF) | payer MEDICARE, MEDICAID, SELFPAY ==
[2023-05-23 14:07] LABS: Alanine Aminotransferase 13 U/L (0-31); Albumin Level 4.4 g/dL (3.5-5.0); Alkaline Phosphatase 163 U/L (39-117); Anion Gap 14 (12-20); Aspartate Amino Transferase 16 U/L (5-31); Blood Urea Nitrogen 13 mg/dL (9-16); Calcium 10.1 mg/dL (8.4-10.2); Carbon Dioxide 25 mmol/L (22-29); Chloride 108 mmol/L (96-108); Cholesterol 173 mg/dL (<200); Estimated Glomerular Filt Rate 60; Glucose Random 103 mg/dL (60-115); HDL Cholesterol 57 mg/dL (>40); LDL Cholesterol Calculated 90 mg/dL (<100); Potassium 3.8 mmol/L (3.3-5.1); Sodium 143 mmol/L (135-145); Total Protein 7.6 g/dL (6.5-8.0); Triglycerides 133 mg/dL (<150)
[2023-05-23 14:13] LABS: ~HepC Num1 0.06 S/CO (0.00-0.79); ~Hepatitis C Antibody Nonreactive (Nonreactive)
== END 2023-05-23 10:49 | disposition home or self-care (01) ==
LOC: HO.HHCL 10:48
PROVIDERS: Visit Provider Internal Medicine Geriatric Medicine
DX: I10 Essential (primary) hypertension (principal); E78.00 Pure hypercholesterolemia, unspecified; Z11.59 Encounter for screening for other viral diseases
CPT/HCPCS: 36415; 80053; 80061; 86803

== ENCOUNTER 2023-05-29 10:45 | Outpatient (REF) | payer MEDICARE, MEDICAID, SELFPAY ==
[2023-05-29 12:20] LABS: Alanine Aminotransferase 17 U/L (0-31); Albumin Level 4.1 g/dL (3.5-5.0); Alkaline Phosphatase 157 U/L (39-117); Anion Gap 12 (12-20); Aspartate Amino Transferase 17 U/L (5-31); Bilirubin Direct 0.2 mg/dL (0.0-0.5); Bilirubin Total 0.7 mg/dL (0.0-1.0); Blood Urea Nitrogen 12 mg/dL (9-16); Calcium 9.3 mg/dL (8.4-10.2); Carbon Dioxide 26 mmol/L (22-29); Chloride 109 mmol/L (96-108); Estimated Glomerular Filt Rate > 60; Gamma Glutamyl Transpeptidase 25 U/L (7-33); Glucose Random 93 mg/dL (60-115); Potassium 3.7 mmol/L (3.3-5.1); Sodium 143 mmol/L (135-145); Total Protein 7.1 g/dL (6.5-8.0)
== END 2023-05-29 10:46 | disposition home or self-care (01) ==
LOC: HO.HHCL 10:45
PROVIDERS: Visit Provider Internal Medicine Geriatric Medicine
DX: R74.8 Abnormal levels of other serum enzymes (principal)
CPT/HCPCS: 36415; 80048; 80076; 82977

== ENCOUNTER 2023-06-04 03:44 | Emergency (ER) | payer MEDICARE, MEDICAID, SELFPAY ==
--- NOTE | ~2023-06-04 | XR_ITS ---
EXAMINATION: XR LUMBOSACRAL SPINE CLINICAL INFORMATION: Back pain. COMPARISON: None available. TECHNIQUE: Three views of the lumbosacral spine. FINDINGS: The alignment is normal. There is mild diffuse thoracolumbar disc degenerative change with loss of disc space, endplate change and osteophytes. There is no fracture. There is atherosclerotic plaque of the abdominal aorta. The soft tissues are unremarkable. XR/XR lumbar spine 2-3V IMPRESSION: Mild diffuse thoracolumbar disc degenerative change. No fracture.
[2023-06-04 03:49] VITALS: BP 179/93; PULSE 82; RESP 16; TEMP 36.2; O2SAT 98; BMI 34.7
--- NOTE | 2023-06-04 04:53 | PC.NURSE ---
pt reports lower back pain x 2 years worsening x 4 wks. pt denies injuries. PT previously with no improvement. pt states no improvement with tylenol. pt denies pain radiation. ambulatory with steady gait.
[2023-06-04 05:27] LABS: Appearance Urine Clear; Color Urine Yellow; Glucose Urine UA Negative (Negative); Leukocyte Esterase Urine Moderate (2+) (Negative); Nitrite Urine Negative (Negative); UMIC TRIGGER UACC YES; Urine Blood Negative (Negative); Urine Ketones Negative (Negative); Urine Protein Negative (Neg-Trace)
[2023-06-04 05:31] LABS: Bacteria Urine 1+ (None Seen); Hyaline Casts Urine 0-2 /LPF (0-2); RBC Urine 0-2 /HPF (0-2); UACC Culture Trigger YES; WBC Urine 21-50 /HPF (0-5)
[2023-06-04] MEDS: Ibuprofen 600 MG TABLET PO (06:23)
[2023-06-04 06:24] VITALS: BP 157/83; PULSE 74; RESP 16; O2SAT 99
--- NOTE | 2023-06-04 06:47 | ED.BACK ---
HPI - Back Pain/Injury General Chief Complaint: Back Pain/Injury Stated Complaint: Lower back pain Time Seen by Provider: 06/04/23 05:41 Source: patient Mode of arrival: ambulatory Limitations: no limitations History of Present Illness HPI Narrative: 68-year-old female came in for evaluation of low back pain for many years, pain is been constant in the mid back, no recent trauma or injury or falling. No dysuria, no frequency urination, no hematuria , no fever , no weakness, no numbness, no urinary incontinence. Related Data Home Medications Medication Instructions Recorded Confirmed albuterol sulfate 90 mcg/actuation 1 inh inhalation Q4H PRN Wheezing 12/30/20 01/20/21 aerosol inhaler chlorthalidone 25 mg tablet 25 mg PO DAILY 12/30/20 01/20/21 fluticasone propionate 50 1 spray intranasal DAILY 12/30/20 01/20/21 mcg/actuation nasal spray,suspension montelukast 10 mg tablet 10 mg PO QPM 12/30/20 01/20/21 omeprazole 20 mg capsule,delayed 20 mg PO DAILY 12/30/20 01/20/21 release pravastatin 20 mg tablet 20 mg PO DAILY 12/30/20 01/20/21 sertraline 100 mg tablet 100 mg PO BID 12/30/20 01/20/21 topiramate 50 mg tablet 50 mg PO DAILY 12/30/20 01/20/21 Previous Rx's Medication Instructions Recorded bisacodyl 5 mg tablet,delayed 10 mg (2 x 5 mg) PO ONCE 1 day #2 09/25/20 release (Dulcolax (bisacodyl)) tabs calcium carbonate 600 mg calcium 1,200 mg (2 x 600 mg calcium 12/16/20 (1,500 mg) tablet (1,500 mg)) PO DAILY #180 tabs cholecalciferol (vitamin D3) 10 10 mcg PO DAILY #90 caps 12/16/20 mcg (400 unit) capsule (Vitamin D3) albuterol sulfate 2.5 mg/3 mL 2.5 mg (3 mL) inhalation Q4-6H PRN 06/17/22 (0.083 %) solution for nebulization shortness of breath or wheezing #90 mL prednisone 20 mg tablet 40 mg (2 x 20 mg) PO DAILY #10 tabs 06/17/22 Allergies Allergy/AdvReac Type Severity Reaction Status Date / Time AMBROSE Inhibitors Allergy Mild Rash Verified 12/16/22 09:12 Review of Systems Review of Systems: all other systems are reviewed and are negative Constitutional: Reports as per HPI and Reports no additional constitutional complaints Eyes: Reports as per HPI and Reports no additional eye complaints Reports system reviewed and no additional complaints, except as documented Cardiovascular: Reports as per HPI and Reports no additional cardiovascular complaints Respiratory: Reports as per HPI and Reports no additional respiratory complaints Gastrointestinal: Reports as per HPI and Reports no additional gastrointestinal complaints Genitourinary: Reports no additional female genitourinary complaints Musculoskeletal: Reports no additional musculoskeletal complaints Skin/Breast: Reports system reviewed and no additional complaints, except as docu Psychiatric: Reports no additional psychiatric complaints Endocrine: Reports no additional endocrine complaints Hematologic/Lymphatic: Reports no additional hematologic/lymphatic complaints Allergic/Immunologic: Reports no additional allergic/immunologic complaints Reports system reviewed and no additional complaints, except as documented and Reports Abnormal speech present PMFSH Past Medical History Medical History Asthma GERD (gastroesophageal reflux disease) HTN (hypertension) Hyperlipidemia Rheumatoid arthritis Vaginal atrophy Surgical History H/O colonoscopy H/O knee surgery History of cholecystectomy History of tubal ligation Hx of hand surgery Family History Family History Mother HTN (hypertension) Social History Social History Household Members: Family Alcohol intake: never Patient Tobacco Use Status: Never used Tobacco Smoked in Last 30 Days: No Use of substances other than those prescribed or required for medical reasons: No Advance Directives: No Advance Directives Information Provided: Yes Gender identity: Female Physical Exam Vital Signs: Vital Signs: Last Vital Signs Temp 97.2 F 06/04/23 03:49 Pulse 74 06/04/23 06:24 Resp 16 06/04/23 06:24 BP 157/83 H 06/04/23 06:24 Pulse Ox 99 06/04/23 06:24 O2 Del Method Room Air 06/04/23 06:24 BMI result Body Mass Index 34.7 Vital signs have been reviewed and appear to be correct. Blood pressure elevated. Heart rate normal. Respiratory rate normal. Temperature normal. Oxygen saturation normal. Appearance: Alert. Oriented X3. No acute distress. Head: Normal external exam. Normocephalic. Atraumatic. No [place] signs noted. No raccoon eyes noted Eyes: PERRLA. EOMI. Conjunctiva and sclera normal. Eyelids normal. ENT: TM's Normal. Pharynx normal. Uvula midline. Moist mucous membranes. No trismus noted. No drooling noted. No muffled voice noted. Neck: Normal inspection. Neck supple. FROM. No adenopathy. Thyroid Normal. No meningeal signs. No neck mass noted. CVS: Normal heart rate and rhythm. Heart sound normal. No murmurs noted. Pulses normal throughout. Respiratory: No respiratory distress. Painless inspiration. Breath sounds normal. No wheezes/rales/rhonchi noted. Chest nontender. No accessory muscle usage noted or decreased air movement noted. Abdomen: Soft and nontender. Bowel sounds normal in all 4 quadrants. No distention noted. No organomegaly noted. No visible injury noted. Back: No CVA tenderness. Full range of motion noted. Skin: Skin warm and dry. Normal skin color. Normal skin turgor. No rashes/lesions/lacerations noted. Extremities: No lower extremity edema. Extremities exhibit normal range of motion. Extremities nontender. Neuro: Oriented X 3. Cranial nerve exam: II-XII are grossly intact No motor deficit. No sensory deficit. Reflexes normal. Course Reevaluation(s) Reevaluation #1: chronic back pain with no neurological deficit as discussed with the patient to follow-up with PCP take Tylenol/ ibuprofen if needed for pain. Time: 06:50 Medications Administered Discontinued Medications Generic Name Dose Route Start Last Admin Trade Name Freq PRN Reason Stop Dose Admin Ibuprofen 600 mg 06/04/23 05:40 06/04/23 06:23 Ibuprofen 600 Mg Tablet PO 06/04/23 05:41 600 mg ONCE ONE Administration Medical Decision Making Differential Diagnosis Differential Diagnoses: The differential diagnosis associated with the presentation includes ( UTI, kidney infection, chronic back pain, lumbar radiculopathy, muscular pain.) Admission/Observation Consideration of admission/observation: Escalation of care including admission/observation considered Lab Data MDM Lab Attestation statement: I reviewed the patient's lab results. Labs: Lab Results 11/12/23 Range/Units 05:20 Urine Color Yellow Urine Appearance Clear Urine pH 6.0 (5.0-9.0) Ur Specific [place] 1.020 (1.005-1.025) Urine Protein Negative (Neg-Trace) mg/dL Urine Glucose (UA) Negative (Negative) mg/dL Urine Ketones Negative (Negative) mg/dL Urine Blood Negative (Negative) Urine Nitrite Negative (Negative) Ur Leukocyte Esterase Moderate (2+) H (Negative) Urine RBC 0-2 (0-2) /HPF Urine WBC 21-50 H (0-5) /HPF Ur Squamous Epith Cells 11-20 (0-2) /HPF Urine Bacteria 1+ (None Seen) Hyaline Casts 0-2 (0-2) /LPF Independent Interpretation I performed an independent interpretation of an: Plain X-Ray ( Lumbar spine x-ray : Degenerative changes.) Radiology Impression Discussion of test interpretation with radiology: I have reviewed the radiologist's reading. (Mild diffuse thoracolumbar disc degenerative change. No fracture.) Chronic Conditions Patient?s care impacted by: Other ( chronic back pain) Discharge Plan Discharge Clinical Impression: Strain of lumbar region Patient Disposition: Home, Self-Care Instructions: Back Pain (ED) Additional Instructions: take [id number] 200 mg pill of ibuprofen or 500 mg pill of Tylenol every 6 hours if needed for pain. Prescriptions: No Action calcium carbonate 600 mg calcium (1,500 mg) tablet 1,200 mg PO DAILY Qty: 180 3RF cholecalciferol (vitamin D3) [Vitamin D3] 10 mcg (400 unit) capsule 10 mcg PO DAILY Qty: 90 3RF albuterol sulfate 2.5 mg /3 mL (0.083 %) solution for nebulization 2.5 mg inhalation Q4-6H PRN (Reason: shortness of breath or wheezing) Qty: 90 0RF prednisone 20 mg tablet 40 mg PO DAILY Qty: 10 0RF topiramate 50 mg tablet 50 mg PO DAILY sertraline 100 mg tablet 100 mg PO BID omeprazole 20 mg capsule,delayed release(DR/EC) 20 mg PO DAILY albuterol sulfate 90 mcg/actuation HFA aerosol inhaler 1 inh inhalation Q4H PRN (Reason: Wheezing) fluticasone propionate 50 mcg/actuation spray,suspension 1 spray intranasal DAILY pravastatin 20 mg tablet 20 mg PO DAILY montelukast 10 mg tablet 10 mg PO QPM chlorthalidone 25 mg tablet 25 mg PO DAILY bisacodyl [Dulcolax (bisacodyl)] 5 mg tablet,delayed release (DR/EC) 10 mg PO ONCE 1 Days Qty: 2 0RF Rx Instructions: take 2 tabs at noon the day before your colonoscopy Referrals: Name,MD Jah [Primary Care Provider] -
== END 2023-06-04 07:16 | disposition home or self-care (01) ==
PROVIDERS: Emergency Provider Emergency Medicine; PCP Internal Medicine Geriatric Medicine
DX: S39.012A Strain of muscle, fascia and tendon of lower back, initial encounter (principal); X58.XXXA Exposure to other specified factors, initial encounter; I10 Essential (primary) hypertension; E78.5 Hyperlipidemia, unspecified; Z79.899 Other long term (current) drug therapy; Z90.49 Acquired absence of other specified parts of digestive tract; Z98.51 Tubal ligation status; Y93.9 Activity, unspecified; Y92.9 Unspecified place or not applicable; Y99.9 Unspecified external cause status
CPT/HCPCS: 72100; 81001; 87086; 87147; 99283; 99284

== ENCOUNTER 2023-06-09 22:18 | Emergency (ER) | payer MEDICARE, MEDICAID, SELFPAY ==
--- NOTE | 2023-06-09 | ECG_ITS ---
Test Reason : gres Blood Pressure : / mmHG Vent. Rate : 102 BPM Atrial Rate : 102 BPM P-R Int : 152 ms QRS Dur : 080 ms QT Int : 348 ms P-R-T Axes : 050 004 057 degrees QTc Int : 453 ms Sinus tachycardia Otherwise normal ECG No significant changes seen Referred By: Generic ED Physician Electronically Signed By:RONI CACERES MD
--- NOTE | ~2023-06-09 | XR_ITS ---
EXAMINATION: XR CHEST CLINICAL INFORMATION: Cough. COMPARISON: Portable chest x-ray 9:38 PM TECHNIQUE: Frontal portable view of the chest was obtained. 2320 hours FINDINGS: Lungs are clear. No pulmonary vascular congestion. There is no pleural effusion. The heart size is normal. The cardiac and mediastinal contours are normal. There are calcifications of the thoracic aorta. There are multilevel degenerative changes of dorsal spine. XR/XR chest 1V IMPRESSION: Unremarkable examination.
--- NOTE | 2023-06-09 22:29 | MHC.EDTECH ---
Patient brought from waiting area,EKG taken and signed by provider, Labs and Sars/Flu/RSV obtained and sent to lab.
[2023-06-09 22:30] VITALS: BP 158/86; PULSE 99; RESP 18; TEMP 37.1; O2SAT 97; BMI 34.4
[2023-06-09 22:35] LABS: Basophils Percent Auto 0.2 % (0-2); Hematocrit 37.5 % (37.0-47.0); Imm Gran Abs Auto 0.01 X10*3/uL (0.00-0.03); Imm Gran Pct Auto 0.2 % (0.0-0.4); Lymphocytes Absolute Auto 0.7 X10*3/uL (1.2-4.9); Lymphocytes Percent Auto 15.5 % (20-40); MANUAL DIFF FLAG NO; Mean Corpuscular Hemoglobin 26.3 pg (27.0-33.0); Mean Corpuscular Volume 82.1 fL (80.0-98.0); Mean Platelet Volume 9.4 fL (9.4-12.3); Monocytes Absolute Auto 0.1 X10*3/uL (0.1-1.2); Monocytes Percent Auto 3.3 % (2-11); Neutrophils Absolute Auto 3.4 x10*3/uL (2.0-8.3); Neutrophils Percent Auto 80.8 % (45-73); Platelet Count 201 X10*3/uL (160-400); Red Blood Count 4.57 X10*6/uL (4.20-5.50); Red Cell Distribution Width 13.8 % (11.0-16.0); White Blood Count 4.3 X10*3/uL (4.8-10.8)
[2023-06-09 22:51] VITALS: BP 141/60; PULSE 89; PULSE 98; RESP 18; TEMP 36.5; O2SAT 96
[2023-06-09 22:52] LABS: Alanine Aminotransferase 19 U/L (0-31); Albumin Level 4.4 g/dL (3.5-5.0); Alkaline Phosphatase 172 U/L (39-117); Anion Gap 15 (12-20); Aspartate Amino Transferase 20 U/L (5-31); Bilirubin Direct 0.2 mg/dL (0.0-0.5); Bilirubin Total 0.5 mg/dL (0.0-1.0); Blood Urea Nitrogen 20 mg/dL (9-16); Calcium 10.1 mg/dL (8.4-10.2); Carbon Dioxide 22 mmol/L (22-29); Chloride 108 mmol/L (96-108); Creatinine Clr Calc Pharmacy 47.9; Estimated Glomerular Filt Rate 47; Glucose Random 182 mg/dL (60-115); Lipase 22 U/L (8-78); Potassium 4.2 mmol/L (3.3-5.1); Sodium 141 mmol/L (135-145); Total Protein 7.9 g/dL (6.5-8.0)
[2023-06-09 22:56] LABS: Troponin-I High Sensitivity < 2.7 ng/L (<3.5-17.0)
--- NOTE | 2023-06-09 23:08 | ED.CHESTPAIN ---
HPI - Chest Pain General Chief Complaint: Chest Pain Stated Complaint: SOB, Cough, Chest Pain Time Seen by Provider: 06/09/23 22:43 Source: patient Mode of arrival: ambulatory Limitations: no limitations History of Present Illness HPI narrative: Patient with history of asthma being having more cough and congestion for last 3 days no fever but has chills saturating 97% at room air feel chest tight with body aches , no leg swelling or pain no other family member sick Related Data Home Medications Medication Instructions Recorded Confirmed albuterol sulfate 90 mcg/actuation 1 inh inhalation Q4H PRN Wheezing 12/30/20 01/20/21 aerosol inhaler chlorthalidone 25 mg tablet 25 mg PO DAILY 12/30/20 01/20/21 fluticasone propionate 50 1 spray intranasal DAILY 12/30/20 01/20/21 mcg/actuation nasal spray,suspension montelukast 10 mg tablet 10 mg PO QPM 12/30/20 01/20/21 omeprazole 20 mg capsule,delayed 20 mg PO DAILY 12/30/20 01/20/21 release pravastatin 20 mg tablet 20 mg PO DAILY 12/30/20 01/20/21 sertraline 100 mg tablet 100 mg PO BID 12/30/20 01/20/21 topiramate 50 mg tablet 50 mg PO DAILY 12/30/20 01/20/21 Previous Rx's Medication Instructions Recorded bisacodyl 5 mg tablet,delayed 10 mg (2 x 5 mg) PO ONCE 1 day #2 09/25/20 release (Dulcolax (bisacodyl)) tabs calcium carbonate 600 mg calcium 1,200 mg (2 x 600 mg calcium 12/16/20 (1,500 mg) tablet (1,500 mg)) PO DAILY #180 tabs cholecalciferol (vitamin D3) 10 10 mcg PO DAILY #90 caps 12/16/20 mcg (400 unit) capsule (Vitamin D3) albuterol sulfate 2.5 mg/3 mL 2.5 mg (3 mL) inhalation Q4-6H PRN 06/17/22 (0.083 %) solution for nebulization shortness of breath or wheezing #90 mL prednisone 20 mg tablet 40 mg (2 x 20 mg) PO DAILY #10 tabs 06/17/22 benzonatate 200 mg capsule 200 mg PO TID PRN cough #30 caps 06/10/23 prednisone 20 mg tablet 40 mg (2 x 20 mg) PO DAILY #10 tabs 06/10/23 Allergies Allergy/AdvReac Type Severity Reaction Status Date / Time AMBROSE Inhibitors Allergy Mild Rash Verified 12/16/22 09:12 Review of Systems Review of Systems: Yes all other systems are reviewed and are negative [facility] Past Medical History Medical History Asthma GERD (gastroesophageal reflux disease) HTN (hypertension) Hyperlipidemia Rheumatoid arthritis Vaginal atrophy Surgical History H/O colonoscopy H/O knee surgery History of cholecystectomy History of tubal ligation Hx of hand surgery Family History Family History Mother HTN (hypertension) Social History Social History Household Members: Family Alcohol intake: never Patient Tobacco Use Status: Never used Tobacco Smoked in Last 30 Days: No Use of substances other than those prescribed or required for medical reasons: No Advance Directives: No Advance Directives Information Provided: Yes Gender identity: Female Physical Exam Vital Signs: Vital Signs: Last Vital Signs Temp 97.7 F 06/09/23 22:51 Pulse 88 06/09/23 23:25 Resp 18 06/09/23 23:25 BP 141/60 H 06/09/23 22:51 Pulse Ox 96 06/09/23 22:51 O2 Del Method Room Air 06/09/23 22:51 BMI result Body Mass Index 34.4 Appearance: Alert. Oriented X3. No acute distress. Eyes: PERRLA, No Nystagmus ENT: Pharynx normal. Oral Mucosa moist Neck: Normal inspection. Neck supple. CVS: Normal heart rate and rhythm. Pulses normal. Respiratory: No respiratory distress. Equal air entry bilateral, bilateral wheeze no rales Abdomen: Soft and nontender. Bowel sounds are present, no mass palpable, no CVA tenderness Skin: Skin warm and dry. Normal skin color. Normal skin turgor. Extremities: No lower extremity edema. No calf tenderness Neuro: Oriented X 3. No motor deficit. No sensory deficit.No cerebellar signs , cranial nerves II-XII intact Medications Administered Discontinued Medications Generic Name Dose Route Start Last Admin Trade Name Freq PRN Reason Stop Dose Admin Albuterol Sulfate 5 mg/ 0 mg 06/09/23 23:09 06/09/23 23:25 Albuterol/Ipratropium 3 ml INHALE 06/09/23 23:10 1 each ONCE ONE Administration Dexamethasone 10 mg 06/09/23 23:09 06/10/23 00:01 Dexamethasone 2 Mg Tablet PO 06/09/23 23:10 10 mg ONCE ONE Administration Guaifenesin/Codeine Phosphate 10 ml 06/09/23 23:09 06/10/23 00:01 Guaifen/Codeine Sf 200/20/10ml 10 Ml Liquid PO 06/09/23 23:10 10 ml ONCE ONE Administration Medical Decision Making Medical Decision Making [facility] Narrative: Patient with asthma with bronchitis COVID test positive chest x-ray negative for infiltrate which are patient on steroids and inhalers patient is saturating 97% at room air Differential Diagnosis Differential Diagnoses: The differential diagnosis associated with the presentation includes As above Lab Data [facility] Lab Attestation statement: I reviewed the patient's lab results. 06/09/23 22:29 06/09/23 22:29 Labs: Lab Results 06/09/23 06/09/23 Range/Units 22:28 22:29 WBC 4.3 L (4.8-10.8) X10*3/uL RBC 4.57 (4.20-5.50) X10*6/uL Hgb 12.0 (12.0-16.0) g/dl Hct 37.5 (37.0-47.0) % MCV 82.1 (80.0-98.0) fL MCH 26.3 L (27.0-33.0) pg MCHC 32.0 (31.0-35.0) g/dl RDW 13.8 (11.0-16.0) % Plt Count 201 (160-400) X10*3/uL MPV 9.4 (9.4-12.3) fL Immature Gran % (Auto) 0.2 (0.0-0.4) % Neut % (Auto) 80.8 H (45-73) % Lymph % (Auto) 15.5 L (20-40) % [place] % (Auto) 3.3 (2-11) % Eos % (Auto) 0.0 (0-4) % Baso % (Auto) 0.2 (0-2) % Lymph # (Auto) 0.7 L (1.2-4.9) X10*3/uL [place] # (Auto) 0.1 (0.1-1.2) X10*3/uL Eos # (Auto) 0.0 (0.0-0.4) X10*3/uL Baso # (Auto) 0.0 (0.0-0.2) X10*3/uL Abs Immat Gran (auto) 0.01 (0.00-0.03) X10*3/uL Absolute Neuts (auto) 3.4 (2.0-8.3) x10*3/uL Absolute Nucleated RBC 0.000 (0.0-0.012) X10*3/uL Nucleated RBC % (auto) 0.0 (0.0-0.2) /100WBC Sodium 141 (135-145) mmol/L Potassium 4.2 (3.3-5.1) mmol/L Chloride 108 (96-108) mmol/L Carbon Dioxide 22 (22-29) mmol/L Anion Gap 15 (12-20) BUN 20 H (9-16) mg/dL Creatinine 1.15 (0.5-1.4) mg/dL Estim Creat Clear Calc 47.9 Estimated GFR 47 Random Glucose 182 H (60-115) mg/dL Calcium 10.1 D (8.4-10.2) mg/dL Total Bilirubin 0.5 (0.0-1.0) mg/dL Direct Bilirubin 0.2 (0.0-0.5) mg/dL AST 20 (5-31) U/L ALT 19 (0-31) U/L Alkaline Phosphatase 172 H (39-117) U/L Troponin I High Sens < 2.7 (<3.5-17.0) ng/L Total Protein 7.9 (6.5-8.0) g/dL Albumin 4.4 (3.5-5.0) g/dL Lipase 22 (8-78) U/L Influenza Type A (PCR) NEGATIVE (Negative) Influenza Type B (PCR) NEGATIVE (Negative) RSV RNA Qual (PCR) NEGATIVE (Negative) SARS-CoV-2 RNA (RT-PCR) POSITIVE A (Negative) Discharge Plan Discharge Clinical Impression: Acute asthmatic bronchitis, COVID-19 Patient Disposition: Home, Self-Care Instructions: Asthma (ED), COVID-19 (Coronavirus Disease 2019) (ED) Additional Instructions: Continue use your inhaler/nebulizing treatment Prednisone as prescribed Cough drops as prescribed Report to the ER if increased shortness of breath Contin?e usando glass tratamiento inhalador/nebulizador. Prednisona seg?n lo prescrito [place] para la tos seg?n lo prescrito Informe a urgencias si aumenta la dificultad para respirar. Prescriptions: New benzonatate 200 mg capsule 200 mg PO TID PRN (Reason: cough) Qty: 30 0RF prednisone 20 mg tablet 40 mg PO DAILY Qty: 10 0RF No Action calcium carbonate 600 mg calcium (1,500 mg) tablet 1,200 mg PO DAILY Qty: 180 3RF cholecalciferol (vitamin D3) [Vitamin D3] 10 mcg (400 unit) capsule 10 mcg PO DAILY Qty: 90 3RF albuterol sulfate 2.5 mg /3 mL (0.083 %) solution for nebulization 2.5 mg inhalation Q4-6H PRN (Reason: shortness of breath or wheezing) Qty: 90 0RF prednisone 20 mg tablet 40 mg PO DAILY Qty: 10 0RF topiramate 50 mg tablet 50 mg PO DAILY sertraline 100 mg tablet 100 mg PO BID omeprazole 20 mg capsule,delayed release(DR/EC) 20 mg PO DAILY albuterol sulfate 90 mcg/actuation HFA aerosol inhaler 1 inh inhalation Q4H PRN (Reason: Wheezing) fluticasone propionate 50 mcg/actuation spray,suspension 1 spray intranasal DAILY pravastatin 20 mg tablet 20 mg PO DAILY montelukast 10 mg tablet 10 mg PO QPM chlorthalidone 25 mg tablet 25 mg PO DAILY bisacodyl [Dulcolax (bisacodyl)] 5 mg tablet,delayed release (DR/EC) 10 mg PO ONCE 1 Days Qty: 2 0RF Rx Instructions: take 2 tabs at noon the day before your colonoscopy Interventions: ED Discharge Assessment Last Done: 06/10/23 01:34 Discharge Date/Time: 06/10/23 01:34 Print Language: Egyptian
[2023-06-09 23:11] LABS: Influenza A PCR NEGATIVE (Negative); Influenza B PCR NEGATIVE (Negative); Resp Syncy Virus RNA Qual PCR NEGATIVE (Negative); SARS COV2 PCR INHOUSE POSITIVE (Negative)
[2023-06-09 23:25] VITALS: PULSE 88; RESP 18; O2SAT 97
[2023-06-09] MEDS: Albuterol Sulfate 5 MG, Albuterol/Iprat 2.5/0.5MG 3 ML 3 ML INHALE (23:25)
[2023-06-10] MEDS: guaiFEN/Codeine SF 200/20/10ML 10 ML LIQUID PO (00:01)
[2023-06-10] MEDS: dexAMETHasone 2 MG TABLET 10 MG PO (00:01)
== END 2023-06-10 01:34 | disposition home or self-care (01) ==
PROVIDERS: Emergency Provider Internal Medicine; PCP Internal Medicine Geriatric Medicine
DX: U07.1 COVID-19 (principal); R05.9 Cough, unspecified; R00.0 Tachycardia, unspecified; R09.89 Other specified symptoms and signs involving the circulatory and respiratory systems; J45.909 Unspecified asthma, uncomplicated; Z79.899 Other long term (current) drug therapy
CPT/HCPCS: 0241U; 71045; 80048; 80076; 83690; 84484; 85025; 93005; 94640; 99284; 99285; J8540

== ENCOUNTER 2023-06-22 10:46 | Outpatient (REF) | payer MEDICARE, MEDICAID, SELFPAY ==
[2023-06-22 11:40] LABS: Appearance Urine Cloudy; Color Urine Yellow; Glucose Urine UA Negative (Negative); Leukocyte Esterase Urine Moderate (2+) (Negative); Nitrite Urine Negative (Negative); Specific Gravity - Urine 1.025 (1.005-1.025); UMIC TRIGGER UACC YES; Urine Blood Negative (Negative); Urine Ketones Negative (Negative); Urine Protein Negative (Neg-Trace)
[2023-06-22 12:44] LABS: Bacteria Urine None Seen (None Seen); Hyaline Casts Urine 0-2 /LPF (0-2); RBC Urine 0-2 /HPF (0-2); Squamous Epithelial Cell Urine 0-2 /HPF (0-2); UACC Culture Trigger YES
== END 2023-06-22 10:47 | disposition home or self-care (01) ==
LOC: HO.HHCL 10:46
PROVIDERS: Visit Provider Internal Medicine
DX: R39.9 Unspecified symptoms and signs involving the genitourinary system (principal)
CPT/HCPCS: 81001; 87086; 87147

== ENCOUNTER 2023-08-21 15:03 | Outpatient (REF) | payer MEDICARE, MEDICAID, SELFPAY ==
[2023-08-21 15:59] LABS: MANUAL DIFF FLAG NO
[2023-08-21 16:11] LABS: Basophils Percent Auto 0.5 % (0-2); Eosinophils Absolute Auto 0.1 X10*3/uL (0.0-0.4); Eosinophils Percent Auto 1.9 % (0-4); Hematocrit 38.5 % (37.0-47.0); Imm Gran Abs Auto 0.02 X10*3/uL (0.00-0.03); Imm Gran Pct Auto 0.3 % (0.0-0.4); Lymphocytes Absolute Auto 1.4 X10*3/uL (1.2-4.9); Lymphocytes Percent Auto 21.7 % (20-40); Mean Corpuscular HGB Conc 31.2 g/dl (31.0-35.0); Mean Corpuscular Hemoglobin 26.3 pg (27.0-33.0); Mean Corpuscular Volume 84.2 fL (80.0-98.0); Mean Platelet Volume 10.3 fL (9.4-12.3); Monocytes Absolute Auto 0.6 X10*3/uL (0.1-1.2); Monocytes Percent Auto 8.8 % (2-11); Neutrophils Absolute Auto 4.3 x10*3/uL (2.0-8.3); Neutrophils Percent Auto 66.8 % (45-73); Platelet Count 226 X10*3/uL (160-400); Red Blood Count 4.57 X10*6/uL (4.20-5.50); Red Cell Distribution Width 13.8 % (11.0-16.0); White Blood Count 6.5 X10*3/uL (4.8-10.8)
[2023-08-21 16:36] LABS: Alanine Aminotransferase 17 U/L (0-31); Albumin Level 4.2 g/dL (3.5-5.0); Alkaline Phosphatase 176 U/L (39-117); Anion Gap 13 (12-20); Aspartate Amino Transferase 16 U/L (5-31); Bilirubin Total 0.7 mg/dL (0.0-1.0); Blood Urea Nitrogen 17 mg/dL (9-16); Carbon Dioxide 27 mmol/L (22-29); Chloride 108 mmol/L (96-108); Estimated Glomerular Filt Rate > 60; Glucose Random 127 mg/dL (60-115); Potassium 3.5 mmol/L (3.3-5.1); Sodium 144 mmol/L (135-145); Total Protein 7.3 g/dL (6.5-8.0)
[2023-08-21 16:41] LABS: TSH reflex Free T4 2.23 uIU/mL (0.32-4.0); Vitamin D 25-OH Total 29.6 ng/mL (>30)
== END 2023-08-21 15:04 | disposition home or self-care (01) ==
LOC: HO.HHCL 15:03
PROVIDERS: Visit Provider Internal Medicine Geriatric Medicine
DX: I10 Essential (primary) hypertension (principal); R53.83 Other fatigue; R52 Pain, unspecified; F32.A Depression, unspecified
CPT/HCPCS: 36415; 80053; 82306; 84443; 85025

== ENCOUNTER 2023-08-28 09:48 | Outpatient (AMB) | payer MEDICARE, MEDICAID, SELFPAY ==
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
[2023-08-28 10:00] VITALS: BP 140/88; PULSE 86; RESP 14; O2SAT 97; BMI 35.0
== END 2023-08-28 10:20 | disposition home or self-care (01) ==
PROVIDERS: PCP Internal Medicine Geriatric Medicine; Referring Provider Internal Medicine Geriatric Medicine; Visit Provider Anesthesiology
DX: M47.816 Spondylosis without myelopathy or radiculopathy, lumbar region (principal); G89.4 Chronic pain syndrome; M51.36 Other intervertebral disc degeneration, lumbar region
CPT/HCPCS: 99204

== ENCOUNTER → 2023-08-28 09:48 | Outpatient (BNVA) | payer MEDICARE, MEDICAID, SELFPAY | PROVIDERS: PCP Internal Medicine Geriatric Medicine; Referring Provider Internal Medicine Geriatric Medicine; Visit Provider Anesthesiology | DX: G89.4 Chronic pain syndrome (principal); M47.816 Spondylosis without myelopathy or radiculopathy, lumbar region; M51.36 Other intervertebral disc degeneration, lumbar region | CPT/HCPCS: 99202 ==

== ENCOUNTER 2023-10-31 06:09 | Outpatient (REF) | payer MEDICARE, MEDICAID, SELFPAY ==
--- NOTE | ~2023-10-31 | FL_ITS ---
EXAMINATION: XR FLUOROSCOPY WITH IMAGES CLINICAL INFORMATION: Lumbar spondylosis, without myelopathy or radiculopathy. COMPARISON: Lumbar spine radiographs dated 06/04/2023. TECHNIQUE: Fluoroscopy Supervised By: Dr. Jc Dorman. Fluoroscopy Time: 0.7. Cumulative Dose: 16.2 mGy. DAP: 2.67 Gycm2. Images: 6. FINDINGS: The submitted images show injection needles and injected contrast demonstrated the bilateral L3-L4, L4-L5 and L5-S1 neural foramina. FL/FL guidance in treatment room IMPRESSION: Intraoperative fluoroscopic guidance is provided during lumbar pain management procedure. Please see the patient's Operative Report for full procedural details.
== END 2023-10-31 06:10 | disposition home or self-care (01) ==
LOC: CF 06:09
PROVIDERS: Visit Provider Anesthesiology
DX: M47.816 Spondylosis without myelopathy or radiculopathy, lumbar region (principal); M51.36 Other intervertebral disc degeneration, lumbar region; G89.4 Chronic pain syndrome
CPT/HCPCS: 64493; 64494; J2795; Q9967

== ENCOUNTER 2023-10-31 09:28 | Outpatient (AMB) | payer MEDICARE, MEDICAID, SELFPAY ==
[2023-10-31 09:35] VITALS: BP 148/68; PULSE 86; RESP 14; O2SAT 98
--- NOTE | 2023-10-31 09:35 | A.OFFVIS_ITS ---
Intake Vital Signs 10/31/23 09:35 10/31/23 10:17 BP 148/68 H 130/56 L Blood Pressure Location Rt brachial Lt brachial Position Sitting Sitting Respiration 14 14 Pulse 86 88 Pulse Source Pulse Oximeter Pulse Oximeter Pulse Oximetry (%) 98 97 Oxygen Delivery Method Room Air Room Air Intake Visit Reasons: BILATERAL DX L3,L4,DRL5 MBB/ATIVAN REQ Allergies AMBROSE Inhibitors Allergy (Mild, Verified 10/31/23 09:36) Rash PFSH Medical History Asthma GERD (gastroesophageal reflux disease) HTN (hypertension) Hyperlipidemia Rheumatoid arthritis Vaginal atrophy Surgical History H/O colonoscopy H/O knee surgery History of cholecystectomy History of tubal ligation Hx of hand surgery Family History Mother HTN (hypertension) Social History Household Members: Family Alcohol intake: never Patient Tobacco Use Status: Never used Tobacco Gender identity: Female Female Reproductive History Menstrual Age of Menarche: 12 Physical Exam Vital Signs: Last Vital Signs Pulse 88 10/31/23 10:17 Resp 14 10/31/23 10:17 BP 130/56 L 10/31/23 10:17 Pulse Ox 97 10/31/23 10:17 Oxygen Delivery Method Room Air 10/31/23 10:17 Assessment & Plan Assessment & Plan (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 Informed consent was explained to the patient. All questions were explained and? answered.? The patient was taken inside the operating room where she was positioned prone on the operating table.? Time-out was performed delineating correct site, side, the nature of the procedure, patient's allergy, preoperative antibiotic if needed.? All operating room staff was participating in OR time-out procedure. The lower back was prepped with ChloraPrep and draped with sterile towels.? Sterilely draped C-arm was brought over the operating field and sq picture of L4-and L5 vertebra and S1 AREA were delineated on the screen.? Point of interest were delineated as connection of superior articular process of L4 and L5 skyler tebra bilaterally with corresponding transverse processes as well as connection of the sacral alae bilaterally with superior articular process of S1.? The projection of the point of interest to the skin were injected with the small amount of local anesthetic lidocaine 2% 1-1.5 cc.? After that 22 gauge 3-1/2 inch spinal needle was driven sequentially to the points of interest in tunnel vision fashion. After needles gently contacted the bone at the point of interests the needle was injected with small amount of the contrast.? The injection of the contrast did not demonstrate any intravascular or intrathecal spread of the contrast.? After that injection of the?ropivacaine 0.5%-1cc was performed at each needle location.? Upon completion of the injections? needle was? removed and sterile Band-Aids were applied.? The? patient was taken outside of the operating room to recovery room where she recovered uneventfully.? The patient went home without immediate complications. (2) Chronic pain syndrome: Code(s): G89.4 - Chronic pain syndrome (3) Disc degeneration, lumbar: Code(s): M51.36 - Other intervertebral disc degeneration, lumbar region Plan This patient is suffering from disc degeneration and facet arthropathy/spondylosis lumbar without myelopathy or radiculopathy. I offered this patient diagnostic medial branch block L3-L4 does ramus L5. She is very anxious about the procedure I told her that we can give her Ativan to reduce her anxiety. To relieve her pain on injection I recommended her to purchase and apply and I showed her where the lidocaine patch 4%. She needs to wear it for 4 hours before the procedure. This way the procedure will be much better tolerated by her. The procedure will be diagnostic and we will meet after the procedure to discuss possibility of treating her pain with more permanent interventions. Orders: Orders FL guidance in treatment room 10/31/23 M47.816 - Spondylosis without myelopathy or radiculopathy, lumbar region Coding Level of Care Code Procedure Only Diagnoses Spondylosis of lumbar region without myelopathy or radiculopathy M47.816 Chronic pain syndrome G89.4 Disc degeneration, lumbar M51.36
[2023-10-31 10:17] VITALS: BP 130/56; PULSE 88; RESP 14; O2SAT 97
== END 2023-10-31 10:18 | disposition home or self-care (01) ==
LOC: HO.PMCPRC 09:28
PROVIDERS: PCP Internal Medicine Geriatric Medicine; Visit Provider Anesthesiology
DX: M47.816 Spondylosis without myelopathy or radiculopathy, lumbar region (principal); G89.4 Chronic pain syndrome
CPT/HCPCS: 64493; 64494

== ENCOUNTER 2023-11-02 11:11 | Outpatient (AMB) | payer MEDICARE, MEDICAID, SELFPAY ==
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
[2023-11-02 11:21] VITALS: BP 144/78; PULSE 83; RESP 12; O2SAT 98; BMI 34.9
== END 2023-11-02 11:56 | disposition home or self-care (01) ==
PROVIDERS: PCP Internal Medicine Geriatric Medicine; Visit Provider Anesthesiology
DX: M47.816 Spondylosis without myelopathy or radiculopathy, lumbar region (principal); G89.4 Chronic pain syndrome; M51.36 Other intervertebral disc degeneration, lumbar region
CPT/HCPCS: 99214

== ENCOUNTER → 2023-11-02 11:11 | Outpatient (BNVA) | payer MEDICARE, MEDICAID, SELFPAY | PROVIDERS: PCP Internal Medicine Geriatric Medicine; Visit Provider Anesthesiology | DX: M47.816 Spondylosis without myelopathy or radiculopathy, lumbar region (principal); M51.36 Other intervertebral disc degeneration, lumbar region; G89.4 Chronic pain syndrome | CPT/HCPCS: 99212 ==

== ENCOUNTER 2024-01-08 10:03 | Outpatient (REF) | payer MEDICARE, MEDICAID, SELFPAY ==
--- NOTE | ~2024-01-08 | MM_ITS ---
EXAMINATION: MM SCREENING DIGITAL BREAST TOMOSYNTHESIS, BILATERAL CLINICAL INFORMATION: Screening. Asymptomatic. COMPARISON: Mammography: This study is compared with prior exams dating back to 2020. TECHNIQUE: Digital breast tomosynthesis is performed in both the craniocaudal and mediolateral oblique views along with computer-aided detection (CAD). Synthesized 2D images are generated from the tomosynthesis. FINDINGS: The breasts are almost entirely fatty (ACR BI-RADS breast composition Category a). There are no significant masses, abnormal calcifications, or other abnormalities. There is a biopsy tissue marker in the superior aspect of the right breast. MM/MM tomosynthesis screening BI IMPRESSION: No mammographic evidence of malignancy. ASSESSMENT: BI-RADS BI-RADS 2 - Benign Findings RECOMMENDATION: Routine annual mammography screening. 1 year F/U This examination should not preclude the clinical evaluation of a suspicious palpable abnormality. This patient's information was entered into a reminder system with a target due date for their next mammogram.
== END 2024-01-08 10:04 | disposition home or self-care (01) ==
LOC: HO.MAMMO 10:03
PROVIDERS: PCP Internal Medicine Geriatric Medicine; Visit Provider Internal Medicine Geriatric Medicine
DX: Z12.31 Encounter for screening mammogram for malignant neoplasm of breast (principal)
CPT/HCPCS: 77063; 77067

== ENCOUNTER → 2024-01-08 10:15 | Outpatient (BNV) | payer MEDICARE, MEDICAID, SELFPAY | PROVIDERS: PCP Internal Medicine Geriatric Medicine; Visit Provider Radiology Diagnostic Radiology | DX: Z12.31 Encounter for screening mammogram for malignant neoplasm of breast (principal) | CPT/HCPCS: 77063; 77067 ==

== ENCOUNTER 2024-04-09 11:13 | Outpatient (REF) | payer MEDICARE, MEDICAID, SELFPAY ==
--- NOTE | ~2024-04-09 | XR_ITS ---
EXAMINATION: XR KNEE RIGHT AP STANDING XR KNEE LEFT 3 VIEWS CLINICAL INFORMATION: M25.569 - Pain in unspecified knee COMPARISON: None available. TECHNIQUE: AP bilateral standing view of the knees was obtained, as well as left knee lateral and patellofemoral views. FINDINGS: Left Knee: There is no fracture, dislocation, or suspicious bony abnormality. Healed fracture of the proximal fibular diaphysis. There is grossly normal alignment of the knee. At least moderate tricompartmental osteoarthrosis is present, most severe medial and patellofemoral compartments. There is spurring of the tibial spines. No evidence of joint effusion. Soft tissues demonstrate early vascular calcifications. Right Knee: No fracture, dislocation, or suspicious bone lesion. Plate and screw fixation of the proximal tibia with lateral metadiaphyseal plate and screw construct. Hardware intact without loosening. At least moderate osteoarthrosis in the medial lateral compartments. Soft tissues demonstrate early vascular calcifications. XR/XR knee RT 3V IMPRESSION: 1. LEFT knee demonstrates no acute findings. There is moderate tricompartmental osteoarthrosis. 2. No significant LEFT knee joint effusion. 3. AP view RIGHT knee demonstrating lateral proximal tibial plate and screw fixation construct without acute abnormality. Moderate medial and lateral compartment osteoarthrosis. Electronically signed by: Nicho Caputo MD 06/18/2024 12:34 PM [facility]
--- NOTE | ~2024-04-09 | XR_ITS ---
EXAMINATION: XR KNEE RIGHT AP STANDING XR KNEE LEFT 3 VIEWS CLINICAL INFORMATION: M25.569 - Pain in unspecified knee COMPARISON: None available. TECHNIQUE: AP bilateral standing view of the knees was obtained, as well as left knee lateral and patellofemoral views. FINDINGS: Left Knee: There is no fracture, dislocation, or suspicious bony abnormality. Healed fracture of the proximal fibular diaphysis. There is grossly normal alignment of the knee. At least moderate tricompartmental osteoarthrosis is present, most severe medial and patellofemoral compartments. There is spurring of the tibial spines. No evidence of joint effusion. Soft tissues demonstrate early vascular calcifications. Right Knee: No fracture, dislocation, or suspicious bone lesion. Plate and screw fixation of the proximal tibia with lateral metadiaphyseal plate and screw construct. Hardware intact without loosening. At least moderate osteoarthrosis in the medial lateral compartments. Soft tissues demonstrate early vascular calcifications. XR/XR knee LT 2V IMPRESSION: 1. LEFT knee demonstrates no acute findings. There is moderate tricompartmental osteoarthrosis. 2. No significant LEFT knee joint effusion. 3. AP view RIGHT knee demonstrating lateral proximal tibial plate and screw fixation construct without acute abnormality. Moderate medial and lateral compartment osteoarthrosis. Electronically signed by: Nicho Caputo MD 06/18/2024 12:34 PM [facility]
== END 2024-04-09 11:14 | disposition home or self-care (01) ==
LOC: HO.HOSX 11:13
PROVIDERS: PCP Internal Medicine Geriatric Medicine; Visit Provider Physician Assistant
DX: M17.0 Bilateral primary osteoarthritis of knee (principal)
CPT/HCPCS: 20610; 73560; 73562; 99212; J1010

== ENCOUNTER → 2024-04-09 11:17 | Outpatient (BNV) | payer MEDICARE, MEDICAID, SELFPAY | PROVIDERS: PCP Internal Medicine Geriatric Medicine; Visit Provider Radiology Diagnostic Radiology | DX: M17.12 Unilateral primary osteoarthritis, left knee (principal) | CPT/HCPCS: 73560; 73562 ==

== ENCOUNTER 2024-04-09 13:06 | Outpatient (AMB) | payer MEDICARE, MEDICAID, SELFPAY ==
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
== END 2024-04-09 14:56 | disposition home or self-care (01) ==
PROVIDERS: PCP Internal Medicine Geriatric Medicine; Visit Provider Physician Assistant
DX: M17.0 Bilateral primary osteoarthritis of knee (principal)
CPT/HCPCS: 20610; 99213

== ENCOUNTER 2024-04-16 11:22 | Outpatient (REF) | payer MEDICARE, MEDICAID, SELFPAY ==
[2024-04-16 13:49] LABS: Anion Gap 8 (12-20); Blood Urea Nitrogen 16 mg/dL (9-16); Calcium 9.5 mg/dL (8.4-10.2); Carbon Dioxide 29 mmol/L (22-29); Chloride 107 mmol/L (96-108); Estimated Glomerular Filt Rate > 60; Glucose Random 92 mg/dL (60-115); Sodium 140 mmol/L (135-145)
== END 2024-04-16 11:23 | disposition home or self-care (01) ==
LOC: HO.HHCL 11:22
PROVIDERS: Visit Provider Internal Medicine Geriatric Medicine
DX: I10 Essential (primary) hypertension (principal)
CPT/HCPCS: 36415; 80048

== ENCOUNTER 2024-05-11 05:42 | Emergency (ER) | payer MEDICARE, MEDICAID, SELFPAY ==
--- NOTE | ~2024-05-11 | XR_ITS ---
EXAMINATION: XR CHEST CLINICAL INFORMATION: Cough and wheezing. COMPARISON: June 09, 2023 TECHNIQUE: Frontal view of the chest was obtained. FINDINGS: The cardiomediastinal silhouette is within normal limits and stable. There is no focal lung consolidation or pleural effusions. The bony structures and the soft tissues are unremarkable. XR/XR chest 1V IMPRESSION: No acute cardiopulmonary process. Electronically signed by: Rommel Esposito MD 05/11/2024 06:50 AM EDT
[2024-05-11 05:48] VITALS: BP 151/80; PULSE 101; RESP 18; TEMP 36.6; O2SAT 97; BMI 36.5
[2024-05-11 06:16] LABS: MANUAL DIFF FLAG NO
[2024-05-11 06:25] LABS: Basophils Percent Auto 0.2 % (0-2); Eosinophils Absolute Auto 0.1 X10*3/uL (0.0-0.4); Eosinophils Percent Auto 2.5 % (0-4); Hemoglobin 12.2 g/dl (12.0-16.0); Imm Gran Abs Auto 0.02 X10*3/uL (0.00-0.03); Imm Gran Pct Auto 0.4 % (0.0-0.4); Lymphocytes Absolute Auto 1.2 X10*3/uL (1.2-4.9); Lymphocytes Percent Auto 21.2 % (20-40); Mean Corpuscular HGB Conc 32.1 g/dl (31.0-35.0); Mean Corpuscular Hemoglobin 26.9 pg (27.0-33.0); Mean Corpuscular Volume 83.9 fL (80.0-98.0); Mean Platelet Volume 9.7 fL (9.4-12.3); Monocytes Absolute Auto 0.6 X10*3/uL (0.1-1.2); Monocytes Percent Auto 10.3 % (2-11); Neutrophils Absolute Auto 3.7 x10*3/uL (2.0-8.3); Neutrophils Percent Auto 65.4 % (45-73); Platelet Count 181 X10*3/uL (160-400); Red Blood Count 4.53 X10*6/uL (4.20-5.50); Red Cell Distribution Width 13.7 % (11.0-16.0); White Blood Count 5.6 X10*3/uL (4.8-10.8)
[2024-05-11 06:31] LABS: Anion Gap 13 (12-20); Blood Urea Nitrogen 17 mg/dL (9-16); Calcium 9.5 mg/dL (8.4-10.2); Carbon Dioxide 24 mmol/L (22-29); Chloride 109 mmol/L (96-108); Creatinine Clr Calc Pharmacy 67.6; Estimated Glomerular Filt Rate > 60; Glucose Random 108 mg/dL (60-115); Potassium 3.7 mmol/L (3.3-5.1); Sodium 142 mmol/L (135-145)
[2024-05-11 06:53] LABS: Influenza A PCR NEGATIVE (Negative); Influenza B PCR NEGATIVE (Negative); Resp Syncy Virus RNA Qual PCR NEGATIVE (Negative); SARS COV2 PCR INHOUSE NEGATIVE (Negative)
--- NOTE | 2024-05-11 07:01 | ED.URI ---
HPI - URI/Sore Throat General Chief Complaint: Upper Respiratory Symptoms Stated Complaint: diff breathing, asthmatic, cough Time Seen by Provider: 05/11/24 06:26 Source: patient Mode of arrival: ambulatory Limitations: no limitations History of Present Illness ED Provider: Heber Machado PA-C HPI Narrative: 68 yo female with history of chronic pain syndrome, asthma, GERD, HTN, HLD, RA who presents to the ER for evaluation of increased asthma symptoms that started yesterday. Patient is coughing and wheezing and reporting central chest pains when she coughs. She is unable to bring up any phelgm. She reports wheezing and difficulty breathing with her coughing fits. No fever or chills. No chest pain at rest. She reports increased asthma symptoms usually this time of year. No known sick contacts at home. MD elicited complaint: cough and other (wheezing) Pertinent past history: asthma Onset (ago): day(s) (1) Consistency: progressively worsening Severity: moderate Able to tolerate fluids by mouth: Yes Exacerbating factors: other (coughing) Relieving factors: rest Associated symptoms: cough, chest pain and shortness of breath Treatments prior to arrival: none Related Data Home Medications ?Medication ?Instructions ?Recorded ?Confirmed albuterol sulfate 90 mcg/actuation 1 inh inhalation Q4H PRN Wheezing 12/30/20 01/20/21 aerosol inhaler chlorthalidone 25 mg tablet 25 mg PO DAILY 12/30/20 01/20/21 fluticasone propionate 50 1 spray intranasal DAILY 12/30/20 01/20/21 mcg/actuation nasal spray,suspension montelukast 10 mg tablet 10 mg PO QPM 12/30/20 01/20/21 omeprazole 20 mg capsule,delayed 20 mg PO DAILY 12/30/20 01/20/21 release pravastatin 20 mg tablet 20 mg PO DAILY 12/30/20 01/20/21 sertraline 100 mg tablet 100 mg PO BID 12/30/20 01/20/21 topiramate 50 mg tablet 50 mg PO DAILY 12/30/20 01/20/21 Previous Rx's ?Medication ?Instructions ?Recorded bisacodyl 5 mg tablet,delayed 10 mg (2 x 5 mg) PO ONCE 1 day #2 09/25/20 release (Dulcolax (bisacodyl)) tabs calcium carbonate 1,200 mg (2 x 600 mg calcium 12/16/20 (1,500 mg)) PO DAILY #180 tabs cholecalciferol (vitamin D3) 10 10 mcg PO DAILY #90 caps 12/16/20 mcg (400 unit) capsule (Vitamin D3) albuterol sulfate 2.5 mg/3 mL 2.5 mg (3 mL) inhalation Q4-6H PRN 06/17/22 (0.083 %) solution for nebulization shortness of breath or wheezing #90 mL benzonatate 200 mg capsule 200 mg PO TID PRN cough #30 caps 06/10/23 albuterol sulfate 90 mcg/actuation 1 inh inhalation QID PRN shortness 05/11/24 aerosol inhaler of breath or wheezing #6.7 grams benzonatate 100 mg capsule 100 mg PO TID PRN cough #20 caps 05/11/24 prednisone 20 mg tablet 40 mg (2 x 20 mg) PO DAILY #8 tabs 05/11/24 Allergies Allergy/AdvReac Type Severity Reaction Status Date / Time AMBROSE Inhibitors Allergy Mild Rash Verified 05/11/24 05:51 Review of Systems Review of Systems: Yes all other systems are reviewed and are negative [facility] Past Medical History Medical History Asthma GERD (gastroesophageal reflux disease) HTN (hypertension) Hyperlipidemia Rheumatoid arthritis Vaginal atrophy Surgical History H/O colonoscopy H/O knee surgery History of cholecystectomy History of tubal ligation Hx of hand surgery Family History Family History Mother HTN (hypertension) Social History Social History Household Members: Family Alcohol intake: never Patient Tobacco Use Status: Never used Tobacco Smoked in Last 30 Days: No Use of substances other than those prescribed or required for medical reasons: No Advance Directives: No Advance Directives Information Provided: Yes Do you have a plan to hurt others: No Plan Gender identity: Female Physical Exam Vital Signs: Vital Signs: Last Vital Signs Temp 97.4 F 05/11/24 08:04 Pulse 101 H 05/11/24 08:04 Resp 20 05/11/24 08:04 BP 153/74 H 05/11/24 08:04 Pulse Ox 98 05/11/24 08:04 O2 Del Method Room Air 05/11/24 08:04 BMI result Body Mass Index 36.5 Appearance: Alert. Oriented X3. No acute distress. Head: normocephalic, atraumatic. Eyes: Pupils equal, round and reactive to light. ENT: Pharynx normal. No tonsillar swelling or exudate. Neck: Normal inspection. Neck supple. CVS: Normal heart rate and rhythm. Pulses normal. Respiratory: No respiratory distress. Breath sounds normal at rest. wheezing and bronchospasm with coughing, dry coughing fits. Abdomen: Obese, Soft and nontender. +BS x4 Skin: Skin warm and dry. Normal skin color. Normal skin turgor. No rashes. Extremities: No lower extremity edema. No joint swelling. Neuro/psych: Oriented X 3. No motor deficit. No sensory deficit. CN II-XII intact. Normal speech and cognition. Medications Administered Discontinued Medications Generic Name Dose Route Start Last Admin Trade Name Alexq PRN Reason Stop Dose Admin Albuterol Sulfate 2.5 mg/ 0 mg 05/11/24 07:26 05/11/24 07:29 Albuterol/Ipratropium 3 ml INHALE 05/11/24 07:27 1 dose ONCE ONE Administration Guaifenesin 1,200 mg 05/11/24 06:46 05/11/24 07:21 Guaifenesin La 600 Mg Tab.Er.12h PO 05/11/24 06:47 1,200 mg ONCE ONE Administration Prednisone 40 mg 05/11/24 06:46 05/11/24 07:21 Prednisone 20 Mg Tablet PO 05/11/24 06:47 40 mg ONCE ONE Administration Medical Decision Making Medical Decision Making MDM Narrative: 68 yo female with history of chronic pain syndrome, asthma, GERD, HTN, HLD, RA who presents to the ER for evaluation of increased asthma symptoms that started yesterday. She has a dry cough and chest wall pain with coughing. On arrival to the ER she is saturating well on room air, no respiratory distress. She does have a bronchospastic cough so ED bronch protocol was ordered. She was given a nebulizer treatment and steroids. Her lab workup today was reassuring with no leukocytosis, no anemia. Troponin was negative. EKG did not show any ischemic changes. She tested negative for COVID, flu, RSV. No metabolic derangements seen on her chemistry. After nebulizer and steroids patient was feeling much better. At this time her symptoms most likely due to viral bronchitis. Will discharge home with short course of steroids, p.r.n. albuterol and antitussive. Encouraged follow-up with her primary care doctor. Return precautions were discussed. Stable for discharge home Differential Diagnosis Differential Diagnoses: The differential diagnosis associated with the presentation includes acute asthma exacerbation, VCD, tracheobronchomalacia, COVID, Flu, RSV, PNA, bronchitis Admission/Observation Consideration of admission/observation: Escalation of care including admission/observation considered Improved after treatment Lab Data MDM Lab Attestation statement: I reviewed the patient's lab results. no leukocytosis, normal renal function 05/11/24 06:12 05/11/24 06:12 Labs: Lab Results 05/11/24 Range/Units 06:12 WBC 5.6 (4.8-10.8) X10*3/uL RBC 4.53 (4.20-5.50) X10*6/uL Hgb 12.2 (12.0-16.0) g/dl Hct 38.0 (37.0-47.0) % MCV 83.9 (80.0-98.0) fL MCH 26.9 L (27.0-33.0) pg MCHC 32.1 (31.0-35.0) g/dl RDW 13.7 (11.0-16.0) % Plt Count 181 (160-400) X10*3/uL MPV 9.7 (9.4-12.3) fL Immature Gran % (Auto) 0.4 (0.0-0.4) % Neut % (Auto) 65.4 (45-73) % Lymph % (Auto) 21.2 (20-40) % [place] % (Auto) 10.3 (2-11) % Eos % (Auto) 2.5 (0-4) % Baso % (Auto) 0.2 (0-2) % Lymph # (Auto) 1.2 (1.2-4.9) X10*3/uL [place] # (Auto) 0.6 (0.1-1.2) X10*3/uL Eos # (Auto) 0.1 (0.0-0.4) X10*3/uL Baso # (Auto) 0.0 (0.0-0.2) X10*3/uL Abs Immat Gran (auto) 0.02 (0.00-0.03) X10*3/uL Absolute Neuts (auto) 3.7 (2.0-8.3) x10*3/uL Absolute Nucleated RBC 0.000 (0.0-0.012) X10*3/uL Nucleated RBC % (auto) 0.0 (0.0-0.2) /100WBC Sodium 142 (135-145) mmol/L Potassium 3.7 (3.3-5.1) mmol/L Chloride 109 H (96-108) mmol/L Carbon Dioxide 24 (22-29) mmol/L Anion Gap 13 (12-20) BUN 17 H (9-16) mg/dL Creatinine 0.81 (0.5-1.4) mg/dL Estim Creat Clear Calc 67.6 Estimated GFR > 60 Random Glucose 108 (60-115) mg/dL Calcium 9.5 (8.4-10.2) mg/dL Troponin I High Sens < 2.7 (<3.5-17.0) ng/L Influenza Type A (PCR) NEGATIVE (Negative) Influenza Type B (PCR) NEGATIVE (Negative) RSV RNA Qual (PCR) NEGATIVE (Negative) SARS-CoV-2 RNA (RT-PCR) NEGATIVE (Negative) Independent Interpretation I performed an independent interpretation of an: EKG and Plain X-Ray Interpretation: cxr without focal infiltrate to suggest pna EKG with normal sinus rhythm, ventricular rate 79 beats per minute, normal IL interval, normal QTC, no ST segment elevations or depressions. No change from prior, 1 year ago Radiology Impression Discussion of test interpretation with radiology: I have reviewed the radiologist's reading. External Record Review External record reviewed: Outpatient record, Prior outpatient labs and Prior outpatient radiology Prescription Management I considered prescription management with: Antiviral and Antibiotic Chronic Conditions Patient?s care impacted by: Hypertension and Other (asthma) Critical Care Time Critical Care Time Critical Care Time: No Discharge Plan Discharge Clinical Impression: Bronchitis Asthma Qualifiers: Asthma severity: unspecified severity Asthma persistence: unspecified Asthma complication type: unspecified Qualified Code(s): J45.909 - Unspecified asthma, uncomplicated Patient Disposition: Home, Self-Care Instructions: Asthma (DC), Acute Bronchitis (ED) Additional Instructions: Your chest x-ray today did not show any evidence of pneumonia. Your EKG and blood work today did not show any evidence of strain on the heart. You tested negative for COVID, flu, RSV. Your symptoms most likely due to asthma exacerbation and viral bronchitis. Take the prescribed prednisone as directed, this will help with the inflammation in your lungs. Start this tomorrow because you were given 1st dose today in the ER. Take this for the next 4 days. Use your inhaler every 3-4 hours as needed for shortness of breath and wheezing. Take the prescribed medication as needed for cough. Follow-up with your doctor next week. If you develop new or worsening symptoms call 911 or come back to the ER for further evaluation. Prescriptions: New albuterol sulfate 90 mcg/actuation HFA aerosol inhaler 1 inh inhalation QID PRN (Reason: shortness of breath or wheezing) Qty: 6.7 0RF prednisone 20 mg tablet 40 mg PO DAILY Qty: 8 0RF benzonatate 100 mg capsule 100 mg PO TID PRN (Reason: cough) Qty: 20 0RF No Action calcium carbonate 600 mg calcium (1,500 mg) tablet 1,200 mg PO DAILY Qty: 180 3RF cholecalciferol (vitamin D3) [Vitamin D3] 10 mcg (400 unit) capsule 10 mcg PO DAILY Qty: 90 3RF albuterol sulfate 2.5 mg /3 mL (0.083 %) solution for nebulization 2.5 mg inhalation Q4-6H PRN (Reason: shortness of breath or wheezing) Qty: 90 0RF benzonatate 200 mg capsule 200 mg PO TID PRN (Reason: cough) Qty: 30 0RF topiramate 50 mg tablet 50 mg PO DAILY sertraline 100 mg tablet 100 mg PO BID omeprazole 20 mg capsule,delayed release(DR/EC) 20 mg PO DAILY albuterol sulfate 90 mcg/actuation HFA aerosol inhaler 1 inh inhalation Q4H PRN (Reason: Wheezing) fluticasone propionate 50 mcg/actuation spray,suspension 1 spray intranasal DAILY pravastatin 20 mg tablet 20 mg PO DAILY montelukast 10 mg tablet 10 mg PO QPM chlorthalidone 25 mg tablet 25 mg PO DAILY bisacodyl [Dulcolax (bisacodyl)] 5 mg tablet,delayed release (DR/EC) 10 mg PO ONCE 1 Days Qty: 2 0RF Rx Instructions: take 2 tabs at noon the day before your colonoscopy Print Language: Citizen Of [place]
--- NOTE | 2024-05-11 07:09 | ECG_ITS ---
Test Reason : CHEST PAIN Blood Pressure : / mmHG Vent. Rate : 079 BPM Atrial Rate : 079 BPM P-R Int : 150 ms QRS Dur : 084 ms QT Int : 388 ms P-R-T Axes : 025 005 040 degrees QTc Int : 444 ms Normal sinus rhythm Normal ECG When compared with ECG of 09-JUN-2023 22:20, No significant change was found Referred By: Rosalind Machado Electronically Signed By:INGRID MACDONALD
[2024-05-11] MEDS: predniSONE 20 MG TABLET 40 MG PO (07:21)
[2024-05-11] MEDS: guaiFENesin LA 600 MG TAB.ER.12H 1200 MG PO (07:21)
[2024-05-11 07:29] VITALS: PULSE 82; RESP 22; O2SAT 96
[2024-05-11] MEDS: Albuterol Sulfate 2.5 MG, Albuterol/Iprat 2.5/0.5MG 3 ML 3 ML INHALE (07:29)
[2024-05-11 07:32] LABS: Troponin-I High Sensitivity < 2.7 ng/L (<3.5-17.0)
[2024-05-11 08:04] VITALS: BP 153/74; PULSE 101; RESP 20; TEMP 36.3; O2SAT 98
[2024-05-11 08:48] VITALS: BP 153/74; PULSE 101; RESP 20; TEMP 36.3; O2SAT 98
== END 2024-05-11 08:48 | disposition home or self-care (01) ==
PROVIDERS: Physician Assistant; Emergency Provider Emergency Medicine
DX: J45.909 Unspecified asthma, uncomplicated (principal); R05.9 Cough, unspecified; R06.02 Shortness of breath; I10 Essential (primary) hypertension; E78.5 Hyperlipidemia, unspecified; Z03.818 Encounter for observation for suspected exposure to other biological agents ruled out; Z79.02 Long term (current) use of antithrombotics/antiplatelets; Z79.899 Other long term (current) drug therapy
CPT/HCPCS: 0241U; 36415; 71045; 80048; 84484; 85025; 93005; 94640; 99284; 99285

== ENCOUNTER → 2024-05-11 07:09 | Outpatient (BNV) | payer MEDICARE, MEDICAID, SELFPAY | PROVIDERS: Emergency Provider Emergency Medicine; Visit Provider Internal Medicine | DX: R07.9 Chest pain, unspecified (principal) | CPT/HCPCS: 93010 ==

== ENCOUNTER 2024-05-16 08:33 | Outpatient (AMB) | payer MEDICARE, MEDICAID, SELFPAY ==
--- NOTE | 2024-05-16 08:35 | A.OFFVIS_ITS ---
Vital Signs 05/16/24 08:39 Height 5 ft 2 in Weight 201 lb BMI 36.8 BP 142/76 H Intake Visit Reasons: annual Natural Resources Specialist Required: No Natural Resources Specialist Services: Natural Resources Specialist Offered & Declined Mergers And Acquisitions Banker: Mergers And Acquisitions Banker Present (Brandy) Allergies AMBROSE Inhibitors Allergy (Mild, Verified 05/16/24 08:38) Rash HPI Comments Details: She is a postmenopausal woman presenting for her new patient annual ob/gyn physician examination. She is doing well with no concerns. Her asthma has flared currently which has limited her activity level. Using topical [id number] cream for a groin rash. Attempting to eat a healthy diet with calcium and vitamin D and stays active with exercise-walks when possible. Currently sexually active. Denies any vaginal dryness or irritation. STI testing offered; she accepts. Last pap smear; 2016, hx. of ASCUS. Last mammogram; 2023. Colonoscopy is UTD. Denies any family history of ovarian or colon cancer. FH breast cancer-m.cousin. [facility] Medical History (Updated 05/16/24 @ 08:35 by Virginia Sena CNM) GERD (gastroesophageal reflux disease) Asthma Vaginal atrophy Hyperlipidemia Rheumatoid arthritis HTN (hypertension) Surgical History (Updated 05/16/24 @ 08:55 by Virginia Sena CNM) Hx of hand surgery H/O colonoscopy H/O knee surgery History of tubal ligation History of cholecystectomy Family History (Updated 05/16/24 @ 08:44 by Jennifer Camp Ce) Mother HTN (hypertension) Family/Other History of breast cancer Social History Household Members: Family Alcohol intake: never Patient Tobacco Use Status: Never used Tobacco Gender identity: Female Female Reproductive History Menstrual Age of Menarche: 12 Total pregnancies: 3 Full term: 3 Number of Living Children: 3 Date of last pap smear: 06/05/17 ([place]) History of abnormal pap smear: Yes Date of Mammogram: 01/08/24 ([facility] 2) Other: Colonoscopy 01/27/2021 Review of Systems Const All systems reviewed & are unremarkable except as noted in HPI and below Reports as per HPI Eyes Reports no additional complaints ENT Reports no additional complaints Card Reports no additional complaints Resp Reports no additional complaints GI Reports as per HPI and Reports no additional complaints Reports as per HPI Musc Reports no additional complaints Skin/Breast Reports as per HPI Neuro Reports no additional complaints Psych Reports no additional complaints Endo Reports no additional complaints Luke/Lymph Reports no additional complaints Aller/Immun Reports no additional complaints Physical Exam Const General: cooperative, healthy appearing, no acute distress, well developed and alert Orientation/consciousness: patient oriented x3 HEENT Head: Yes normal to inspection Eyes General: appearance normal, both eyes and all related structures Neck Neck: Yes normal visual inspection Thyroid: Thyroid normal Chest Chest palpation & inspection: normal inspection of the chest and other (no puckering, dimpling, peau de orange, retraction, discharge, masses) Breast/axilla inspection: normal inspection of the breasts Breast/axilla palpation: normal palpation of the breasts Resp Effort & Inspection: normal respiratory effort GI Inspection: Yes obesity Palpation (GI): Soft to palpation Rectal Exam - Female: deferred Other: Bilateral groin erythema with medication layer applied on surface. General: Yes bladder normal to palpation External Female Exam: normal external appearance and normal appearance of the urethra Speculum Exam - Vagina: vagina atrophic Speculum Exam - Cervix: Other cervical findings present (Bled very slightly with Pap) Bimanual exam- vagina & uterus: bladder normal to palpation Bimanual Exam- Adnexa, other: no masses Skin General skin exam: no rashes or lesions noted Rashes: other (See section) Neuro General: patient oriented x3 Cognition (Neuro): normal cognition Extrem General: Yes normal to inspection Psych Attitude: cooperative Thought process: Normal thought process present Assessment & Plan Assessment & Plan (1) Encounter for well woman exam with routine gynecological exam: Code(s): Z01.419 - Encounter for gynecological examination (general) (routine) without abnormal findings Category: Medical Plan Discussed: Current recommendations for pap smears per ASCCP guidelines. Breast awareness, periodic self breast exams and yearly mammogram. Maintain a healthy lifestyle, well balanced diet including Calcium 1,200 mg and Vitamin D 800 IU daily, and routine exercise. Contact the office with any postmenopausal bleeding. Patient verbalizes understanding and agrees to the plan of care. She was given opportunity to ask questions and all questions were answered to the best of my ability. Return to the office 1-2 years per insurance coverage, or as needed. This note is constructed using voice recognition software. While every effort has been made to ensure accuracy, terminal operator errors may have been included. RTO in 1 year for annual ob/gyn physician exam. Coding Level of Care Code New Pt Prev Care >65yr (87620) Diagnoses Encounter for well woman exam with routine gynecological exam Z01.419
[2024-05-16 08:39] VITALS: BP 142/76; BMI 36.8
== END 2024-05-16 11:50 | disposition home or self-care (01) ==
LOC: HO.HWSW 08:33
PROVIDERS: PCP Internal Medicine Geriatric Medicine; Visit Provider Advanced Practice Midwife
DX: Z01.419 Encounter for gynecological examination (general) (routine) without abnormal findings (principal)
CPT/HCPCS: G0101

== ENCOUNTER 2024-05-16 08:33 | Outpatient (REF) | payer MEDICARE, MEDICAID, SELFPAY ==
[2024-05-16 18:37] LABS: CT PCR NOT DETECTED (Not Detect.); NG PCR NOT DETECTED (Not Detect.)
[2024-05-21 15:13] LABS: HPV mRNA E6/E7 Not Detected (Not Detected)
== END 2024-05-16 08:34 | disposition home or self-care (01) ==
LOC: HO.LNP 08:33
PROVIDERS: PCP Internal Medicine Geriatric Medicine; Visit Provider Advanced Practice Midwife
DX: Z01.419 Encounter for gynecological examination (general) (routine) without abnormal findings (principal); Z20.2 Contact with and (suspected) exposure to infections with a predominantly sexual mode of transmission
CPT/HCPCS: 87491; 87591; 87624; 88175

== ENCOUNTER 2024-06-06 22:45 | Emergency (ER) | payer MEDICARE, MEDICAID, SELFPAY ==
--- NOTE | ~2024-06-06 | XR_ITS ---
EXAMINATION: XR THORACIC SPINE CLINICAL INFORMATION: Pain COMPARISON: None available. TECHNIQUE: 2 views of the thoracic spine were obtained. FINDINGS: Some minimal degenerative changes are seen with some mild disc space narrowing and some minimal endplate spondylitic changes. There is no fracture or bone destruction seen and the vertebral alignment is normal. There is no abnormality of the paraspinal soft tissues. Surgical clips are present in the gallbladder fossa. Vascular calcifications are present. XR/XR thoracic spine 1V IMPRESSION: Minimal degenerative changes in the thoracic spine. Electronically signed by: Nicanor Guadarrama MD 06/06/2024 11:10 PM RAHUL NESBITT
[2024-06-06 22:47] VITALS: BP 158/73; PULSE 108; RESP 20; TEMP 37.1; O2SAT 97; BMI 34.4
[2024-06-07 02:00] VITALS: BP 154/78; PULSE 101; RESP 20; TEMP 36.8; O2SAT 97
== END 2024-06-07 03:02 | disposition left against medical advice (07) ==
PROVIDERS: Emergency Provider Emergency Medicine Emergency Medical Services; PCP Internal Medicine Geriatric Medicine
DX: M54.6 Pain in thoracic spine (principal); Z53.21 Procedure and treatment not carried out due to patient leaving prior to being seen by health care provider
CPT/HCPCS: 72020; 99281; 99283

== ENCOUNTER 2024-10-09 09:31 | Outpatient (REF) | payer MEDICARE, MEDICAID, SELFPAY ==
[2024-10-09 17:18] LABS: Bacterial Vaginosis PCR NEGATIVE (Negative); Candida Group PCR NOT DETECTED (Not Detect); Candida glab krusei PCR NOT DETECTED (Not Detect); Trichomonas vaginalis PCR NOT DETECTED (Not Detect)
== END 2024-10-09 09:32 | disposition home or self-care (01) ==
LOC: HO.LAB 09:31
PROVIDERS: PCP Internal Medicine Geriatric Medicine; Visit Provider Advanced Practice Midwife
DX: L29.2 Pruritus vulvae (principal); N89.8 Other specified noninflammatory disorders of vagina; I10 Essential (primary) hypertension; R35.0 Frequency of micturition
CPT/HCPCS: 81003; 81515; 99212; 99459

== ENCOUNTER 2024-10-09 09:31 | Outpatient (AMB) | payer MEDICARE, MEDICAID, SELFPAY ==
--- NOTE | 2024-10-09 09:32 | MHC.OFFVIS ---
Vital Signs 10/09/24 09:35 BP 140/70 H Intake Visit Reasons: vaginal rash Intake Note: pt c/o urinary freq and rash in groin White Sugar Boiler Required: No White Sugar Boiler Services: White Sugar Boiler Offered & Declined Linux Programmer: Linux Programmer Present (Brandy) Allergies AMBROSE Inhibitors Allergy (Mild, Verified 10/09/24 09:32) Rash HPI Comments Details: Patient is here today with complaints of vulvar itching. She reports using a cream in the past which was helpful. She is not sexually active, having any vaginal discharge, occasionally may have a slight odor. She has no urinary symptoms or pelvic pain. She uses Dove soap and denies any recent exposure to perfumes, powders, or lotions that are scented. [facility] Medical History GERD (gastroesophageal reflux disease) Asthma Vaginal atrophy Hyperlipidemia Rheumatoid arthritis HTN (hypertension) Surgical History (Updated 05/16/24 @ 08:55 by Virginia Sena CNM) Hx of hand surgery H/O colonoscopy H/O knee surgery History of tubal ligation History of cholecystectomy Family History (Updated 05/16/24 @ 08:44 by JEFFERSON Laboy) Mother HTN (hypertension) Family/Other History of breast cancer Social History Household Members: Family Alcohol intake: never Patient Tobacco Use Status: Never used Tobacco Gender identity: Female Female Reproductive History Menstrual Age of Menarche: 12 Review of Systems Const All systems reviewed & are unremarkable except as noted in HPI and below Physical Exam Vital Signs: Last Vital Signs BP 140/70 H 10/09/24 09:35 Const General: cooperative, healthy appearing and no acute distress Orientation/consciousness: patient oriented x3 GI Inspection: Yes normal to inspection Palpation (GI): Soft to palpation and Other GI palpation findings present (Nontender) Rectal Exam - Female: visual inspection normal Other: Shaven short General: Yes bladder normal to palpation External Female Exam: normal appearance of the urethra Speculum Exam - Vagina: normal appearance of the vagina, normal palpation, normal vaginal discharge (Very scant discharge) and vagina atrophic Speculum Exam - Cervix: normal appearance of the cervix and normal palpation Bimanual exam- vagina & uterus: normal bimanual exam, normal palpation, uterine size normal, bladder normal to palpation, normal palpation, uterine shape normal and non-tender Bimanual Exam- Adnexa, other: normal adnexae Neuro General: patient oriented x3 Results AMB Urinalysis, Automated UA Leukoctes 0.5 Kenan/uL Last Edit by JEFFERSON Laboy on 10/09/24 09:42 UA Nitrite Negative Last Edit by Jennifer Camp Ce on 10/09/24 09:42 UA Urobilinogen 0 mg/dL Last Edit by Jennifer Camp [facility] on 10/09/24 09:42 UA Protein 0 mg/dL Last Edit by Jennifer Camp [facility] on 10/09/24 09:42 UA pH 6.0 Last Edit by Jennifer Camp [facility] on 10/09/24 09:42 UA Blood 0 Alfredo/uL Last Edit by Jennifer Camp [facility] on 10/09/24 09:42 UA Specific Shelby 1.015 Last Edit by JEFFERSON Laboy on 10/09/24 09:42 UA Ketone Negative Last Edit by Jennifer Camp [facility] on 10/09/24 09:42 UA Bilirubin 0 mg/dL Last Edit by Jennifer Camp Ce on 10/09/24 09:42 UA Glucose 0 mg/dL Last Edit by Jennifer Camp [facility] on 10/09/24 09:42 Results Reviewed Results Reviewed: Laboratory Last Values Urine pH (Auto) 6.0 10/09/24 09:38 Specific [place] (Auto) 1.015 10/09/24 09:38 Urine Protein (Auto) 0 mg/dL 10/09/24 09:38 Glucose (UA)(Auto) 0 mg/dL 10/09/24 09:38 Urine Ketones (Auto) Negative 10/09/24 09:38 Urine Blood (Auto) 0 Alfredo/uL 10/09/24 09:38 Urine Nitrite (Auto) Negative 10/09/24 09:38 Urine Bilirubin (Auto) 0 mg/dL 10/09/24 09:38 Urine Urobilinogen (Auto) 0 mg/dL 10/09/24 09:38 Leukocyte Esterase (Auto) 0.5 Kenan/uL 10/09/24 09:38 Assessment & Plan Assessment & Plan (1) Vulvar itching: Code(s): L29.2 - Pruritus vulvae Plan Normal exam today with no clinical findings suggestive of yeast. BV culture obtained await results for plan care. Advised to stop shaving also additionally to stop using dove product and go with a mild unscented baby soap. Rx for itching sent in, if unresolved symptoms to return to the office p.r.n.. The patient expressed understanding and agreement with the plan of care. All of her questions and concerns were addressed to the best of my ability. This note is constructed using voice recognition software. While every effort has been made to ensure accuracy, outreach professional errors may have been included. Orders: Orders Bacterial Vaginosis Panel Today N89.8 - Other specified noninflammatory disorders of vagina AMB Urinalysis Automated Today R35.0 - Frequency of micturition Medications: New triamcinolone acetonide 0.1% 1 appl topical BID 30 grams 0RF Coding Level of Care Code Est Pt Level 3 (79315) Diagnoses Vulvar itching L29.2
[2024-10-09 09:35] VITALS: BP 140/70
--- OUTSIDE RECORDS SUMMARY | 2024-10-09 10:32 | XMS_ITS | Clinical Summary ---
Author Organization [employer] Address [address] [place] [address] Care Team Providers Care Kaiwhakahaere Name Role Phone Name, Jah JAY Primary Care Provider [phone] Allergies No known active allergies Medications Blood Pressure Monitoring (Omron 3 Series BP Monitor) device USE TO CHECK BLOOD PRESSURE EVERY DAY 05/10/20 22 Active D-400 10 MCG (400 UNIT) tablet Take 1 tablet by mouth 1 (one) time each day. 10/16/19 22 Active Diclofenac Sodium 1 % gel Apply 2 grams topically to affected area(s) twice daily 05/10/20 22 Active meclizine (Antivert) 25 MG tablet Take 1 tablet by mouth if needed in the morning, at noon, and at bedtime. 04/14/20 21 Active topiramate (Topamax) 50 MG tablet Take 50 mg by mouth in the morning. 30 tablet 2 05/22/20 23 Active losartan (Cozaar) 100 MG tabletIndicatio ns:Essential hypertension Take 1 tablet (100 mg) by mouth Once daily. 90 tablet 3 08/21/19 24 Active LORazepam (Ativan) 0.5 MG tablet Use one table per mouth 30 minutes prior to boarding flights 4 tablet 05/09/20 24 Active albuterol (Ventolin HFA) 108 (90 Base) MCG/ACT inhaler INHALE 2 PUFFS BY MOUTH EVERY 4 TO 6 HOURS IF NEEDED 18 g 3 05/15/20 24 Active albuterol (2.5 MG/3ML) 0.083% nebulizer solutionIndicat ions:Moderate asthma with acute exacerbation, unspecified whether persistent Take 3 mL by nebulization every 6 (six) hours if needed for shortness of breath or wheezing. 75 mL 3 05/15/20 24 Active cetirizine (ZyrTEC) 10 MG tablet TAKE 1 TABLET BY MOUTH EVERY MORNING 90 tablet 3 06/24/20 24 Active nabumetone (Relafen) 500 MG tablet TOME 1 TABLETA POR VIA ORAL DOS VECES AL BRANDON 60 tablet 1 07/11/20 24 Active budesonide (Pulmicort) 0.25 MG/2ML nebulizer solutionIndicat ions:Moderate asthma with acute exacerbation, unspecified whether persistent INHALE 1 VIAL VIA NEBULIZER TWICE A DAY 360 mL 07/11/20 24 Active omeprazole (PriLOSEC) [address] capsule TAKE 1 CAPSULE BY MOUTH BEFORE BREAKFAST 90 capsule 08/05/19 25 Active amLODIPine (Norvasc) 10 MG tabletIndicatio ns:Essential hypertension Take 1 tablet (10 mg) by mouth Once daily. 90 tablet 3 08/20/19 25 Active atorvastatin (Lipitor) 20 MG tabletIndicatio ns:Essential hypertension TAKE 1 TABLET BY MOUTH EVERY DAY 90 tablet 1 09/18/19 25 Active DULoxetine (Cymbalta) [address] capsule TOME 1 CAPSULA (60 MG) POR VIA ORAL EN LA MANANA DO NOT CRUSH OR CHEW 90 capsule 3 09/28/19 25 Active montelukast (Singulair) 10 MG tablet TOME 1 TABLETA POR VIA ORAL TODOS LOS NIELSEN AL ACOSTARSE 90 tablet 1 10/08/19 25 Active DULoxetine (Cymbalta) [address] capsule Take 1 capsule (60 mg) by mouth in the morning. Do not crush or chew. 30 capsule 11 10/03/19 24 2024 Discontinued atorvastatin (Lipitor) 20 MG tabletIndicatio ns:Essential hypertension TAKE 1 TABLET BY MOUTH EVERY DAY 90 tablet 1 03/26/20 24 2024 Discontinued montelukast (Singulair) 10 MG tablet TAKE 1 TABLET BY MOUTH AT BEDTIME 90 tablet 1 04/08/20 24 2024 Discontinued Active Problems Problem Noted Date Diagnosed Date Chronic back pain 10/03/2023 Overview (10/03/2023): Walker with wheels Migraine without status migrainosus, not intract able 05/22/2023 Tubular adenoma of colon 01/29/2021 Dizziness 10/24/2018 Seasonal allergic reaction 01/08/2018 Disorder of vein 09/18/2017 Hypokalemia 08/01/2017 Seborrheic keratoses 03/24/2017 Asthma 03/30/2016 History of cholecystectomy 03/30/2016 Seizure disorder 03/30/2016 Overview (05/22/2023): Abnormal EEG with neurology at [facility] 2015 but no Sz Neurology treated with Topamax for migraines Depressive disorder 08/25/2015 Essential hypertension 08/25/2015 Primary osteoarthritis involving multiple joints 08/25/2015 Encounters Date Type Department Care Team Description 10/05/2024 Refill [facility] [address] [place] [address] Jah Hernandez MD 10/04/2024 Population Health Risk Score [facility] () Department [address] [id number] Provider, Population Health Generic 09/27/2024 Refill [facility] [address] [place] [address] Jah Hernandez MD 09/18/2024 Refill [facility] [address] [place] [address] Jah Hernandez MD Essential hypertension 08/20/2024 Telephone [facility] [address] [place] [address] PuMady wong, PharmD 08/05/2024 Refill [facility] [address] [place] [address] Jah Hernandez MD 07/22/2024 Telephone [facility] [address] [place] [address] Sonido Knight MA September recalls ; jul recalls 07/11/2024 Refill [facility] [address] [place] [address] Kimberli Parker MD Moderate asthma with acute exacerbation, unspecified whether persistent from Last 3 Months Immunizations Name Administration Dates Next Due Influenza High-dose Quadriva lent Preservative Free 05/10/2022,04/06/2021 Influenza Injectable Quadriv alant Preservative Free IIV4 MDCK 05/18/2017 Influenza Quadrivalent Adjuvanted 04/10/2023,09/2019 Influenza injectable quadriv alent IIV4 with preservative 06/02/2015 Influenza injectable quadriv alent preservative free 04/07/2020,05/19/2016 Influenza, High Dose Seasona l, Preservative Free 04/09/2024,04/16/2019 Influenza, IIV3, injectable 06/02/2015, 4 Influenza, trivalent, adjuvanted 05/04/2018 Moderna Covid-19 Vaccine 12+ 05/26/2023, 06/23/2021,10/15/2020,09/17 Pneumococcal Conjugate PCV 13 03/10/2020 Pneumococcal Polysaccharide PPSV23 02/24/2022,,06/02/2013 RSV Bivalent 08/21/2023 Tdap 04/15/2024,11/01/2013 Zoster, Recombinant 02/24/2022,03/10/2020 Social History Tobacco Use Types Packs/Day Years Used Date Smoking Tobacco: Never Smokeless Tobacco: Never Tobacco Cessation:Counseling Given: Not Answered Alcohol Use Standard Drinks/Week Comments Never 0 (1 standard drink = 0.6 oz pur e alcohol) Depression Answer Date Recorded Patient Health Questionnaire-9 Score 5 10/03/2023 Patient Health Questionnaire-9 Score 5 10/03/2023 Last PHQ-9: Questionnaire Data Not on file 0 10/03/2023 Housing Stability Answer Date Recorded What is your housing situation today? I have frieda elliott 10/03/[address] you li ve. Do you have problems with any of the following? None of the above 10/03/2023 Food Insecurity Answer Date Recorded Within the past 12 months, y ou worried that your food would run out before you got money to buy more: Never True 10/03/2023 Within the past 12 months,th e food you bought just didn't last and you didn't have enough money to get more: Never True 06/2024 Transportation Answer Date Recorded In the past 12 months, has l ack of transportation kept you from medical appts, meetings, work or from getting things needed for daily living? No 10/03/2023 Utilities Answer Date Recorded In the past 12 months, has t he electric, gas, oil or water company threatened to shut off services in your home? No 10/03/2023 Depression Answer Date Recorded Patient Health Questionnaire-2 Score 2 10/03/2023 Comments Unknown Sex and Gender Information Value Date Recorded Sex Assigned at Female 05/23/2022 10:14 AM EDT Legal Sex Female 10:14 AM EDT Gender Identity Female 05/23/2022 10:14 AM EDT Sexual Orientation Choose not to disclose 2021 10:14 AM EDT Last Filed Vital Signs Vital Sign Reading Time Taken Comments Blood Pressure 164/82 05/15/2024 4:29 PM EDT Pulse 93 05/15/2024 4:29 PM EDT Temperature 37.2 ??C (99 ??F) 05/15/2024 4:29 PM EDT Respiratory Rate 18 05/09/2024 9:15 AM EDT Oxygen Saturation 97% 05/15/2024 4:29 PM EDT RA Inhaled Oxygen Concentration - - Weight 90.4 kg (199 lb 3.2 oz) 05/09/2024 9:15 A M EDT Height 162.6 cm (5' 4 ) 05/09/2024 9:15 AM EDT Body Mass Index 34.19 05/09/2024 9:15 AM EDT Plan of Treatment Upcoming Encounters Date Type Department Care Team (Late st Contact Info) Description 10/16/2024 3:15 PM EDT Office Visit [facility] [address] [place] [phone] Name, MD Jah [address] [place] [address] Health Maintenance Due Date Last Done Comments CT Colonography 1955 FIT DNA/Cologuard 1955 FIT 1955 FOBT 1955 Sigmoidoscopy 1955 Alcohol/Substance Use Screening 1965 COVID-19 Vaccine ( season) 2024 05/26/2023, 06/23/2021, 10/15/2020, Additional history exists Depression Screening 10/02/2024 10/03/2023, 10/03/19 24 SDOH Screening 10/02/2024 10/03/2023 Tobacco Screening 05/15/2025 05/15/2024 Mammogram 01/07/2026 01/08/2024, 12/22, 01/02/2023, Additional history exists Colonoscopy 01/27/2026 01/27/2021 Colorectal Cancer Screening 01/27/2026 Lipid Panel 05/23/2028 05/23/2023, 10/23, 04/15/2021 DTaP/Tdap/Td Vaccines (3 - Td or Tdap) 04/15/2034 04/15/2024, 11/01/2013 Pneumococcal Vaccine: 50+ Years Completed 02/24/2022, 03/10/2020, 06/02/2015, Additional history exists Zoster Vaccines Completed 02/24/2022, 03/10/2020 Hepatitis C Screening Completed 05/23/2023 RSV Patients and Patients Aged 60 years or older Completed 08/21/2023 Influenza Vaccine Completed 04/09/2024, , 05/10/2022, Additional history exists HIB Vaccines Aged Out No longer eligi ble based on patient's age to complete this topic HPV Vaccines Aged Out No longer eligi ble based on patient's age to complete this topic Hepatitis A Vaccines Aged Out No long er eligible based on patient's age to complete this topic Hepatitis B Vaccines Aged Out No long er eligible based on patient's age to complete this topic IPV Vaccines Aged Out No longer eligi ble based on patient's age to complete this topic Meningococcal Vaccine Aged Out No wesley sudha eligible based on patient's age to complete this topic RSV under 20 months Aged Out No longe r eligible based on patient's age to complete this topic Rotavirus Vaccines Aged Out No longer eligible based on patient's age to complete this topic Goals Goal Patient Goal Type Associated Problems Recent Progress Patient-Stated? Author Record your blood pressure once per day Blood Pressure No Mady Owen, PharmCatalina Blood Pressure < 140/90 Blood Pressure 164/82( 024 4:29 PM EDT) No Mady Owen PharmD Procedures Procedure Name Priority Date/Time Associated Diagnosis Comments BI MAMMOGRAM SCREENING TOMOSYNTHESIS BILATERAL Routine 01/08/2024 10:20 AM EDT HEPATITIS C ANTIBODY Routine 05/23/2023 10:55 AM EDT Need for hepatitis C screening test LIPID PANEL, STANDARD Routine 05/23/2023 10:55 AM EDT High cholesterol HM COLONOSCOPY Routine 01/27/2021 from Last 3 Months or Most Recently Relevant to Health Maintenance Results * BI Mammogram Screening Tomosynthesis Bilateral (01/08/2024 10:20 AM EDT) Anatomical Region Laterality Modality Breast Bilateral Mammography 01/08/2024 10:2 0 AM EDT Narrative 02/05/2024 4:32 PM EDT ? [facility] ? [address] ?[place] [address] ? Mammography Report ? Signed ? Patient: Elly Lockett ?MR#: [id number] ?? [id number] ? : 1955 ?Acct:[id number] ? Age/Sex: 68 / F ?ADM Date: //24 ? Loc: HO.MAMMO ? Attending Dr: Jah Name MD ? Ordering Physician: Name,Jah MD ?Results: 2Benign Fi ?? ndings ? Date of Service: 01/07/24 ?Follow Up: 1 Year From Orig ?? inal Mammogram ? Procedure(s): MM tomosynthesis screening BI ?? Accession Number(s): [id number] ? cc: Name,Jah JAY ? EXAMINATION: ?? MM SCREENING DIGITAL BREAST TOMOSYNTHESIS, BILATERAL ? CLINICAL INFORMATION: ? Screening. Asymptomatic. ? COMPARISON: ?? Mammography: This study is compared with prior exams dating back to ?? 2020. ? TECHNIQUE: ?? Digital breast tomosynthesis is performed in both the craniocaudal and ?? mediolateral oblique views along with computer-aided detection (CAD). ?? Synthesized 2D images are generated from the tomosynthesis. ? FINDINGS: ?? The breasts are almost entirely fatty (ACR BI-RADS breast composition ?? Category a). ? There are no significant masses, abnormal calcifications, or other ?? abnormalities. ? There is a biopsy tissue marker in the superior aspect of the right ?? breast. ? MM/MM tomosynthesis screening BI ?? IMPRESSION: ?? No mammographic evidence of malignancy. ? ASSESSMENT: ? BI-RADS BI-RADS 2 - Benign Findings ? RECOMMENDATION: ?? Routine annual mammography screening. ? 1 year F/U ? This examination should not preclude the clinical evaluation of a ?? suspicious palpable abnormality. ? This patient's information was entered into a reminder system with a ?? target due date for their next mammogram. ? Dictated By: ?Shruthi Marhsall MD ? Signed By: ?<Electronically signed by Shruthi Marshall MD in OV> ? 02/05/24 1629 ? DD/ 1020 ? TD/TT: ? Metal Can Inspector: ? Procedure Note Good Romo - 02/05/2024 [facility] [address] [place] [address] [place], [place] [id number] Mammography Report Signed Patient: Irasema LockettMadison#: [id number] : 3Acct:[id number] Age/Sex: 68 / FADM Date: 01/08/24 Loc: HO.MAMMO Attending Dr: Jah Hernandez MD Ordering Physician: Jah Hernandez MDResults: 2Benign Fi ndings Date of Service: 01/08/24Follow Up: 1 Year From Orig inal Mammogram Procedure(s): MM tomosynthesis screening BI Accession Number(s): [id number] cc: Jah Hernandez MD EXAMINATION: MM SCREENING DIGITAL BREAST TOMOSYNTHESIS, BILATERAL CLINICAL INFORMATION: Screening. Asymptomatic. COMPARISON: Mammography: This study is compared with prior exams dating back to 2020. TECHNIQUE: Digital breast tomosynthesis is performed in both the craniocaudal and mediolateral oblique views along with computer-aided detection (CAD). Synthesized 2D images are generated from the tomosynthesis. FINDINGS: The breasts are almost entirely fatty (ACR BI-RADS breast composition Category a). There are no significant masses, abnormal calcifications, or other abnormalities. There is a biopsy tissue marker in the superior aspect of the right breast. MM/MM tomosynthesis screening BI IMPRESSION: No mammographic evidence of malignancy. ASSESSMENT: BI-RADS BI-RADS 2 - Benign Findings RECOMMENDATION: Routine annual mammography screening. 1 year F/U This examination should not preclude the clinical evaluation of a suspicious palpable abnormality. This patient's information was entered into a reminder system with a target due date for their next mammogram. Dictated By: Shruthi Marshall MD Signed By: <Electronically signed by Shruthi Marshall MD in OV> 02/05/24 1629 DD/ 1020 TD/TT: Metal Can Inspector: us Jah Hernandez MD IMG BI PROCEDURES Final Result * Hepatitis C Ab (05/23/2023 10:55 AM EDT) Hepatitis C Antibody Nonreactive Nonreactive [facility] Comment:Antibodies to HCV no t detected; does not exclude early acuteHCV infection. Blood Venous blood specimen / Unknown 05/23/2023 10:55 AM EDT 05/23/2023 1:15 PM EDT us Jah Hernandez MD LAB BLOOD ORDERABLES Final Resul t Performing Organization Address City/[facility] Co de Phone Number [facility] [address] [place] [address] [phone] * Lipid Panel, Standard (05/23/2023 10:55 AM EDT) Triglycerides 133 <150 mg/dL [facility] Comment:Desirable Triglyceri de: less than 150 mg/dLBorderline High Triglyceride 150-199 mg/dLHigh Triglyceride: 200-499 mg/dLVery High Triglyceride: greater than or equal to 5OO mg/dL Cholesterol 173 <200 mg/dL [facility] Comment:Desirable Cholestero l: less than 200 mg/dLBorderline High Cholesterol: 200-239 mg/dLHigh Cholesterol: greater than 239 mg/dL LDL Cholesterol Calculated 90 <100 mg/dL [facility] Comment:Desirable LDL: less than 100 mg/dLNear Optimal/Above Optimal LDL: 110- 129 mg/dLBorderline High LDL: 130-159 mg/dLHigh LDL: 160-189 mg/dLVery High LDL: greater than or equal to 190 mg/dL HDL Cholesterol 57 >40 mg/dL [facility] Comment:Desirable HDL: great er than 40 mg/dL Note: This HDL assay may give artificially low results in patients with liver disease. Blood Venous blood specimen / Unknown 05/23/2023 10:55 AM EDT 05/23/2023 1:15 PM EDT us Jah Hernandez MD LAB BLOOD ORDERABLES Final Resul t Performing Organization Address [facility] Co de Phone Number [facility] [address] [place] [address] [phone] * Hm Colonoscopy (01/27/2021) Colonoscopy performed Comment:repeat in 5 years Historical Provider HEALTH MAINTENANCE Final Result from Last 3 Months or Most Recently Relevant to Health Maintenance Insurance [facility] STANDARD MEDICARE Care Teams Kaiwhakahaere Relationship Specialty Start Date End Date Name, MD Jah [address] [place], [place] PCP - General Family Medicine 08/03/15
--- OUTSIDE RECORDS SUMMARY | 2024-10-09 10:32 | XMS_ITS | Encounter Summary ---
Author Organization [employer] Address [address] [facility] [address] [place] [address] Care Team Providers Care Hat Block Maker Name Role Phone Name, Jah JAY Primary Care Provider [phone] Encounter Details Date Type Department Care Team ([facility] st Contact Info) Description 10/04/2024 Population Health Risk Score [facility] Department [address] [facility] [address] [place] [address] Provider, Population Health Generic Social History Tobacco Use Types Packs/Day Years Used Date Smoking Tobacco: Never Smokeless Tobacco: Never Alcohol Use Standard Drinks/Week Comments Never 0 [...] not to disclose 2021 10:14 AM EDT documented as of this encounter Plan of Treatment Upcoming Encounters Date Type Department Care Team (Late st Contact Info) Description 10/16/2024 3:15 PM EDT Office Visit [facility] [address] [place] [address] Name, MD Jah [address] [place] [phone] documented as of this encounter Goals Goal Patient Goal Type Associated Problems Recent Progress Patient-Stated? Author Record your blood pressure once per day Blood Pressure No Puia, Mady, PharmD Blood Pressure < 140/90 Blood Pressure 164/82( 024 4:29 PM EDT) No Puia, Mady, PharmD documented as of this encounter Visit Diagnoses Not on filedocumented in this encounter Additional Health Concerns Assessment Noted Time PHQ-9 Depression Total Score: 5 10/03/19 24 3:41 PM EDT documented as of this encounter Care Teams Hat Block Maker Relationship Specialty Start Date End Date Name, MD Jah [address] [place] [phone] PCP - General Family Medicine 08/03/15 documented as of this encounter
--- OUTSIDE RECORDS SUMMARY | 2024-10-09 10:32 | XMS_ITS | Encounter Summary ---
Author Organization [employer] Address [address] [facility] 7t [place] [address] Care Team Providers Care Rigging Worker Name Role Phone Name, Jah JAY Primary Care Provider [phone] Reason for Visit * Reason Comments Med Refill Encounter Details Date Type Department Care Team ([facility] st Contact Info) Description 10/05/2024 Refill [facility] [address] [place], [place] [phone] Name, MD Jah [address] [place], [place] [phone] Social History Tobacco Use Types Packs/Day Years [...] Description 10/16/2024 3:15 PM EDT Office Visit [facility] [address] [place] [address] NameJah MD [address] [place] [address] documented as of this encounter Goals Goal [...] documented as of this encounter Care Teams Rigging Worker Relationship Specialty Start Date End Date Jah Hernandez MD [address] [place] [address] PCP - General Family Medicine 08/03/15 documented as of this encounter
--- OUTSIDE RECORDS SUMMARY | 2024-10-09 10:32 | XMS_ITS | Encounter Summary ---
Author Organization [employer] Address [address] [facility] [facility] [address] [place] [address] Care Team Providers Care Cellular Equipment Installer Name Role Phone Name, Jah JAY Primary Care Provider [phone] Mady Owen PharmD Unavailable [phone] Reason for Visit * Reason Comments Med Change Request Encounter Details Date Type Department Care Team ([facility] st Contact Info) Description 06/06/2024 Refill [facility] [address] [place], [place] [phone] Alonzo Shah MD [address] [place], [place] [phone] Moderate asthma with acute exacerbation, unspecified whether persistent Social History Tobacco Use Types Packs/Day Years [...] Description 10/16/2024 3:15 PM EDT Office Visit [facility] [address] [place] [address] Name, MD Jah [address] [place] [phone] documented as of this encounter Goals Goal Patient Goal Type Associated Problems Recent Progress Patient-Stated? Author Record your blood pressure once per day Blood Pressure No Puia, Mady, PharmD Blood Pressure < 140/90 Blood Pressure 164/82( 024 4:29 PM EDT) No Puia, Mady, PharmD documented as of this encounter Visit Diagnoses Diagnosis Moderate asthma with acute exacerbation, unspecified whether persistent documented in this encounter Additional Health Concerns Assessment Noted Time PHQ-9 Depression Total Score: 5 10/03/19 24 3:41 PM EDT documented as of this encounter Care Teams Cellular Equipment Installer Relationship Specialty Start Date End Date Name, MD Jah [address] [place] [phone] PCP - General Family Medicine 08/03/15 Puia, Mady, PharmD [address] [place] [phone] Pharmacist Internal Medicine 01/25/22 08/19/24 documented as of this encounter
--- OUTSIDE RECORDS SUMMARY | 2024-10-09 10:32 | XMS_ITS | Encounter Summary ---
Author Organization [employer] Address [address] [facility] 7t [place] [address] Care Team Providers Care Conche Operator Name Role Phone Name, Jah JAY Primary Care Provider Reason for Visit * Reason Comments Med Refill Encounter Details Date Type Department Care Team ([facility] st Contact Info) Description 09/18/2024 Refill [facility] [address] [place], [place] [phone] Name, MD Jah [address] [place], [place] [phone] Essential hypertension Social History Tobacco Use Types Packs/Day Years [...] Description 10/16/2024 3:15 PM EDT Office Visit [facility] [address] [place] [address] NameJah MD [address] [place] [address] documented as of this encounter Goals Goal Patient Goal Type Associated Problems Recent Progress Patient-Stated? Author Record your blood pressure once per day Blood Pressure No Puia, Mady, PharmD Blood Pressure < 140/90 Blood Pressure 164/82( 024 4:29 PM EDT) No Puia, Mady, PharmD documented as of this encounter Visit Diagnoses Diagnosis Essential hypertension Unspecified essential hypertension documented in this encounter Additional Health Concerns Assessment Noted Time PHQ-9 Depression Total Score: 5 10/03/19 24 3:41 PM EDT documented as of this encounter Care Teams Conche Operator Relationship Specialty Start Date End Date Jah Hernandez MD [address] [place] [phone] PCP - General Family Medicine 08/03/15 documented as of this encounter
--- OUTSIDE RECORDS SUMMARY | 2024-10-09 10:32 | XMS_ITS | Encounter Summary ---
Author Organization [employer] Address [address] [facility] 7t [place] [address] Care Team Providers Care Business And Services Instructor Name Role Phone Name, Jah JAY Primary Care Provider [phone] Reason for Visit * Reason Comments Med Refill Encounter Details Date Type Department Care Team ([facility] st Contact Info) Description 09/27/2024 Refill [facility] [address] [place], [place] [phone] Name, MD Jah [address] [place], [place] [phone] Social History Tobacco Use Types Packs/Day Years [...] Description 10/16/2024 3:15 PM EDT Office Visit [facility] [address] [place] [address] NameJah MD [address] [place] [address] documented as of this encounter Goals Goal [...] documented as of this encounter Care Teams Business And Services Instructor Relationship Specialty Start Date End Date Jah Hernandez MD [address] [place] [address] PCP - General Family Medicine 08/03/15 documented as of this encounter
== END 2024-10-09 10:03 | disposition home or self-care (01) ==
LOC: HO.HWS 09:31
PROVIDERS: PCP Internal Medicine Geriatric Medicine; Visit Provider Advanced Practice Midwife
DX: L29.2 Pruritus vulvae (principal); R35.0 Frequency of micturition
CPT/HCPCS: 99213

== ENCOUNTER 2025-01-13 10:15 | Outpatient (REF) | payer MEDICARE, MEDICAID, SELFPAY ==
--- NOTE | ~2025-01-13 | MM_ITS ---
EXAMINATION: MM SCREENING DIGITAL BREAST TOMOSYNTHESIS, BILATERAL CLINICAL INFORMATION: Screening. Asymptomatic. COMPARISON: Mammography: Comparison is made with available priors TECHNIQUE: Digital breast mammography with tomosynthesis is performed in both the craniocaudal and mediolateral oblique views along with computer-aided detection (CAD). FINDINGS: There are scattered areas of fibroglandular density (ACR BI-RADS breast composition Category b). Right marker clip. There are no significant masses, abnormal calcifications, or other abnormalities. MM/MM tomosynthesis screening BI IMPRESSION: No mammographic evidence of malignancy. ASSESSMENT: BI-RADS BI-RADS 2 - Benign Findings RECOMMENDATION: Routine annual mammography screening. 1 year F/U This examination should not preclude the clinical evaluation of a suspicious palpable abnormality. This patient's information was entered into a reminder system with a target due date for their next mammogram. Electronically signed by: Sapphire Ochoa DO 01/17/2025 10:23 AM EDT
--- OUTSIDE RECORDS SUMMARY | 2025-01-13 11:22 | XMS_ITS | Clinical Summary ---
Author Organization [employer] Address [address] [facility] 7[address] [place] [address] Care Team Providers Care Agile Scrum Master Name Role Phone Name, Jah JAY Primary Care Provider [phone] Allergies No known active allergies Medications Blood Pressure Monitoring (Omron 3 Series BP Monitor) device USE TO CHECK BLOOD PRESSURE EVERY DAY Active D-400 10 MCG (400 UNIT) tablet Take 1 tablet by mouth 1 (one) time each day. Active Diclofenac Sodium 1 % gel Apply 2 grams topically to affected area(s) twice daily Active meclizine (Antivert) 25 MG tablet Take 1 tablet by mouth if needed in the morning, at noon, and at bedtime. Active topiramate (Topamax) 50 MG tablet Take 50 mg by mouth in the morning. 30 tablet 2 023 Active LORazepam (Ativan) 0.5 MG tablet Use one table per mouth 30 minutes prior to boarding flights 4 tablet 024 Active albuterol (Ventolin HFA) 108 (90 Base) MCG/ACT inhaler INHALE 2 PUFFS BY MOUTH EVERY 4 TO 6 HOURS IF NEEDED 18 g 3 024 Active albuterol (2.5 MG/3ML) 0.083% nebulizer solutionIndicat ions:Moderate asthma with acute exacerbation, unspecified whether persistent Take 3 mL by nebulization every 6 (six) hours if needed for shortness of breath or wheezing. 75 mL 3 024 Active cetirizine (ZyrTEC) 10 MG tablet TAKE 1 TABLET BY MOUTH EVERY MORNING 90 tablet 3 024 Active amLODIPine (Norvasc) 10 MG tabletIndicatio ns:Essential hypertension Take 1 tablet (10 mg) by mouth Once daily. 90 tablet 3 025 Active atorvastatin (Lipitor) 20 MG tabletIndicatio ns:Essential hypertension TAKE 1 TABLET BY MOUTH EVERY DAY 90 tablet 1 025 Active DULoxetine (Cymbalta) [address] capsule TOME 1 CAPSULA (60 MG) POR VIA ORAL EN LA MANANA DO NOT CRUSH OR CHEW 90 capsule 3 025 Active montelukast (Singulair) 10 MG tablet TOME 1 TABLETA POR VIA ORAL TODOS LOS NIELSEN AL ACOSTARSE 90 tablet 1 025 Active budesonide (Pulmicort) 0.25 MG/2ML nebulizer solutionIndicat ions:Moderate asthma with acute exacerbation, unspecified whether persistent USE 1 VIAL VIA NEBULIZER DOS VECES AL BRANDON 360 mL 025 Active losartan (Cozaar) 100 MG tabletIndicatio ns:Essential hypertension TOME DIOGO TABLETA TODOS LOS NIELSEN 90 tablet 3 025 Active nabumetone (Relafen) 500 MG tablet TAKE 1 TABLET BY MOUTH TWICE A DAY 60 tablet 1 025 Active omeprazole (PriLOSEC) [address] capsule TAKE 1 CAPSULE BY MOUTH BEFORE BREAKFAST 90 capsule 025 Active omeprazole (PriLOSEC) [address] capsule TAKE 1 CAPSULE BY MOUTH BEFORE BREAKFAST 90 capsule 025 2024 Discontinued(R eorder (will not trigger notification to Pharmacy)) nabumetone (Relafen) 500 MG tablet TOME 1 TABLETA POR VIA ORAL DOS VECES AL BRANDON 60 tablet 1 025 2024 Discontinued Active Problems Problem Noted Date Diagnosed Date Chronic back pain 10/03/2023 Overview (10/03/2023): Walker with wheels Migraine without status migrainosus, not intract able 05/22/2023 Tubular adenoma of colon 01/29/2021 Dizziness 10/24/2018 Seasonal allergic reaction 01/08/2018 Disorder of vein 09/18/2017 Hypokalemia 08/01/2017 Seborrheic keratoses 03/24/2017 Asthma 03/30/2016 History of cholecystectomy 03/30/2016 Seizure disorder 03/30/2016 Overview (05/22/2023): Abnormal EEG with neurology at [facility] 2015 but no Sz Neurology treated with Topamax for migraines Depressive disorder 08/25/2015 Essential hypertension 08/25/2015 Primary osteoarthritis involving multiple joints 08/25/2015 Encounters Date Type Department Care Team Description 12/16/2024 Refill [facility] [address] [place] [address] Hepler, Laya, [facility] 12/15/2024 Refill [facility] [address] [place] [address] NameJah MD 11/14/2024 Refill [facility] [address] [place] [address] NameJah MD Essential hypertension 10/26/2024 Refill [facility] [address] [place] [address] NameJah MD Moderate asthma with acute exacerbation, unspecified whether persistent 10/15/2024 Telephone [facility] [address] [place] [address] Sonido Knight [place] appt change (Provider out /) 10/14/2024 Refill [facility] [address] [place] [address] Name, MD Jah from Last 3 Months Immunizations Immunization Administration Dates Next Due Influenza High-dose Quadriva [...] 93 05/15/2024 4:29 PM EDT Temperature 37.2 C (99 F) 05/15/2024 4:29 PM EDT Respiratory Rate 18 [...] Care Team (Late st Contact Info) Description 01/21/2025 11:30 AM EDT Office Visit [facility] [address] [place] [address] Name, MD Jah [address] [place] [address] Health Maintenance Due Date Last Done Comments [...] Cancer Screening 01/27/2026 Lipid Panel 05/23/2028 05/23/2023, 04/2 03/2022, 04/15/2021 DTaP/Tdap/Td Vaccines (3 - Td or [...] patient's age to complete this topic Meningococcal B Vaccine Aged Out No l onger eligible based on patient's age to complete [...] 4:29 PM EDT) No Puia, Mady, PharmD Procedures Procedure Name Priority Date/Time Associated [...] AM EDT Narrative 02/05/2024 4:32 PM EDT [facility] [address] [place] [address] Mammography Report Signed Patient: Elly Lockett MR#: [id number] : 1955 Acct:[id number] Age/Sex: 68 / F ADM Date: 01/08/24 Loc: HO.MAMMO Attending Dr: Jah Hernandez MD Ordering Physician: Jah Hernandez MD Results: 2Benign Fi ndings Date of Service: 01/08/24 Follow Up: 1 Year From [facility] Mammogram Procedure(s): MM tomosynthesis screening BI Accession Number(s): [id number] cc: Jah Hernandez MD EXAMINATION: MM SCREENING [...] in OV> 02/05/24 1629 DD/ 1020 TD/TT: Rn Night: Procedure Note Donotuseinterpreter, Image - 02/05/2024 [facility] [address] [place] [address] Mammography Report Signed Patient: Malka Lockett#: [id number] : 1955cct:[id number] Age/Sex: 68 / FADM Date: 01/08/24 Loc: HO.MAMMO Attending Dr: Jah Hernandez MD Ordering Physician: Jah Hernandez MDResults: 2Benign Fi ndings Date of Service: 01/08/24Follow Up: 1 Year From Orig inal Mammogram Procedure(s): MM tomosynthesis screening BI Accession Number(s): [id number] cc: Jah Hernandez MD EXAMINATION: MM SCREENING [...] in OV> 02/05/24 1629 DD/ 1020 TD/TT: Rn Night: Jah Hernandez MD IM BI PROCEDURES Final Result * Hepatitis C Ab (05/23/2023 10:55 AM EDT) Hepatitis C Antibody Nonreactive Nonreactive [facility] Comment:Antibodies to HCV no t detected; does not exclude early acuteHCV infection. Blood Venous blood specimen / Unknown 05/23/2023 10:55 AM EDT 05/23/2023 1:15 PM EDT us Jah Hernandez MD LAB BLOOD ORDERABLES Final Resul t Performing Organization Address [facility] de Phone Number [facility] [address] [place] [address] [phone] * Lipid Panel, Standard (05/23/2023 10:55 AM EDT) Triglycerides 133 <150 mg/dL [facility] Comment:Desirable Triglyceri de: less than 150 mg/dLBorderline High Triglyceride 150-199 mg/dLHigh Triglyceride: 200-499 mg/dLVery High Triglyceride: greater than or equal to 5OO mg/dL Cholesterol 173 <200 mg/dL [facility] Comment:Desirable Cholestero l: less than 200 mg/dLBorderline High Cholesterol: 200-239 mg/dLHigh Cholesterol: greater than 239 mg/dL LDL Cholesterol Calculated 90 <100 mg/dL [facility] Comment:Desirable LDL: less than 100 mg/dLNear Optimal/Above Optimal LDL: 110- 129 mg/dLBorderline High LDL: 130-159 mg/dLHigh LDL: 160-189 mg/dLVery High LDL: greater than or equal to 190 mg/dL HDL Cholesterol 57 >40 mg/dL [facility] Comment:Desirable HDL: great er than 40 mg/dL Note: This HDL assay may give artificially low results in patients with liver disease. Blood Venous blood specimen / Unknown 05/23/2023 10:55 AM EDT 05/23/2023 1:15 PM EDT us Jah Hernandez MD LAB BLOOD ORDERABLES Final Resul t Performing Organization Address [facility]/ZIP Co de Phone Number [facility] [address] [place], [place] [phone] * Colonoscopy (01/27/2021) Colonoscopy performed Comment:repeat in 5 years us Historical Provider MD HEALTH MAINTENANCE Final Result from Last 3 Months or Most Recently Relevant to Health Maintenance Insurance [facility] STANDARD MEDICARE * Guarantor: Elly Lockett Account Type Relation to Patient Date of Phone Billing Address Personal/Family Self [address] [place] Care Teams Agile Scrum Master Relationship Specialty Start Date End Date Name, MD Jah [address] [place] [address] PCP - General Family Medicine 08/03/15
== END 2025-01-13 10:16 | disposition home or self-care (01) ==
LOC: HO.MAMMO 10:15
PROVIDERS: PCP Internal Medicine Geriatric Medicine; Visit Provider Internal Medicine Geriatric Medicine
DX: Z12.31 Encounter for screening mammogram for malignant neoplasm of breast (principal); Z98.890 Other specified postprocedural states
CPT/HCPCS: 77063; 77067

== ENCOUNTER → 2025-01-13 10:15 | Outpatient (BNV) | payer MEDICARE, MEDICAID, SELFPAY | PROVIDERS: PCP Internal Medicine Geriatric Medicine; Visit Provider Internal Medicine | DX: Z12.31 Encounter for screening mammogram for malignant neoplasm of breast (principal) | CPT/HCPCS: 77063; 77067 ==

== ENCOUNTER 2025-02-10 09:39 | Outpatient (REF) | payer MEDICARE, MEDICAID, SELFPAY ==
--- OUTSIDE RECORDS SUMMARY | 2025-02-10 10:16 | XMS_ITS | Clinical Summary ---
Author Organization [employer] Address [address] [facility] 7[address] [place] [address] Care Team Providers Care Tax Advisor Name Role Phone Name, Jah JAY Primary Care Provider [phone] Allergies No known active allergies Medications Blood Pressure Monitoring (Omron 3 Series BP Monitor) device USE TO CHECK BLOOD PRESSURE EVERY DAY Active D-400 10 MCG (400 UNIT) tablet Take 1 tablet by mouth 1 (one) time each day. 022 Active Diclofenac Sodium 1 % gel Apply 2 grams topically to affected area(s) twice daily 022 Active meclizine (Antivert) 25 MG tablet Take 1 tablet by mouth if needed in the morning, at noon, and at bedtime. 021 Active topiramate (Topamax) 50 MG tablet Take 50 mg by mouth in the morning. 30 tablet 2 023 Active LORazepam (Ativan) 0.5 MG tablet Use one table per mouth 30 minutes prior to boarding flights 4 tablet 024 Active albuterol (2.5 MG/3ML) 0.083% nebulizer [...] AL ACOSTARSE 90 tablet 1 025 Active losartan (Cozaar) 100 MG tabletIndicatio ns:Essential hypertension TOME DIOGO TABLETA TODOS LOS NIELSEN 90 tablet 3 025 Active nabumetone (Relafen) 500 MG tablet TAKE 1 TABLET BY MOUTH TWICE A DAY 60 tablet 1 025 Active omeprazole (PriLOSEC) [address] capsule TAKE 1 CAPSULE BY MOUTH BEFORE BREAKFAST 90 capsule 025 Active albuterol (Ventolin HFA) 108 (90 Base) MCG/ACT inhaler INHALE 2 PUFFS BY MOUTH EVERY 4 TO 6 HOURS IF NEEDED 18 g 3 025 Active fluticasone furoate (Arnuity Ellipta) 100 MCG/ACT inhaler Inhale 1 puff Once per day. Rinse mouth with water after use to reduce aftertaste and incidence of candidiasis. Do not swallow. 1 each 11 025 2025 Active albuterol (Ventolin HFA) 108 (90 Base) MCG/ACT inhaler INHALE 2 PUFFS BY MOUTH EVERY 4 TO 6 HOURS IF NEEDED 18 g 3 024 2024 Discontinued(R eorder (will not trigger notification to Pharmacy)) budesonide (Pulmicort) 0.25 MG/2ML nebulizer solutionIndicat ions:Moderate asthma with acute exacerbation, unspecified whether persistent USE 1 VIAL VIA NEBULIZER DOS TAY AL BRANDON 360 mL 025 2024 Discontinued Active Problems Problem Noted Date Diagnosed Date Chronic back pain 10/03/2023 Overview (10/03/2023): Walker with wheels Migraine without status migrainosus, not intract able 05/22/2023 Tubular adenoma of colon 01/29/2021 Seasonal allergic reaction 01/08/2018 Disorder of vein 09/18/2017 Seborrheic keratoses 03/24/2017 Asthma 03/30/2016 History of cholecystectomy 03/30/2016 Seizure disorder 03/30/2016 Overview (05/22/2023): Abnormal EEG with neurology at [facility] 2015 but no Sz Neurology treated with Topamax for migraines Depressive disorder 08/25/2015 Essential hypertension 08/25/2015 Primary osteoarthritis involving multiple joints 08/25/2015 Resolved Problems Problem Noted Date Diagnosed Date Resolved Date Dizziness 10/24/2018 01/21/2025 Hypokalemia 08/01/2017 01/21/2025 Encounters Date Type Department Care Team Description 01/21/2025 11:30 AM EDT Office Visit [facility] [address] [facility] [place] [address] NameJah MD Essential hypertension (Primary Dx); High cholesterol; On statin therapy; Seborrheic keratoses; Asthma, unspecified asthma severity, unspecified whether complicated, unspecified whether persistent 01/21/2025 Travel 01/20/2025 Telephone [facility] [address] [place] [address] Jah Hernandez MD Chart Prep 01/13/2025 Orders Only [facility] [address] [facility] [address] Jah Hernandez MD 12/16/2024 Refill [facility] [address] [place] [address] [facility] 12/15/2024 Refill [facility] [address] [facility] [place] [address] Jah Hernandez MD 11/14/2024 Refill [facility] [address] [place] [address] Jah Hernandez MD Essential hypertension from Last 3 Months Immunizations Immunization Administration [...] Answer Date Recorded Patient Health Questionnaire-9 Score 18 01/21/2025 Patient Health Questionnaire-9 Score 18 01/21/2025 Last PHQ-9: Questionnaire Data Not on file 0 01/21/2025 Housing Stability Answer Date Recorded What is your housing situation today? I have friedabrad elliott 01/21/[address] you li ve. Do you have problems with any of the following? None of the above 01/21/2025 Food Insecurity Answer Date Recorded Within the past 12 months, y ou worried that your food would run out before you got money to buy more: Never True 01/21/2025 Within the past 12 months,th e food you bought just didn't last and you didn't have enough money to get more: Never True 07/2024 Transportation Answer Date Recorded In the past 12 months, has l ack of transportation kept you from medical appts, meetings, work or from getting things needed for daily living? No 01/21/2025 Utilities Answer Date Recorded In the past 12 months, has t he electric, gas, oil or water company threatened to shut off services in your home? No 01/21/2025 Depression Answer Date Recorded Patient Health Questionnaire-2 Score 4 01/21/2025 Internet Access Answer Date Recorded Internet Access Q1 Yes 01/21/2025 Internet Access Q2 Not on file 01/21/2025 Comments Unknown Sex and Gender Information Value Date Recorded Sex Assigned at Female 05/23/2022 10:14 AM EDT Legal Sex Female 10:14 AM EDT Gender Identity Female 05/23/2022 10:14 AM EDT Sexual Orientation Choose not to disclose 2021 10:14 AM EDT Last Filed Vital Signs Vital Sign Reading Time Taken Comments Blood Pressure 112/64 01/21/2025 11:38 AM EDT Pulse 96 01/21/2025 11:38 AM EDT Temperature 36.4 C (97.6 F) 01/21/2025 11:38 AM EDT Respiratory Rate 12 01/21/2025 11:38 AM EDT Oxygen Saturation 97% 01/21/2025 11:38 AM EDT Inhaled Oxygen Concentration - - Weight 93 kg (205 lb) 01/21/2025 11:38 AM EDT Height 162.6 cm (5' 4 ) 01/21/2025 11:38 AM EDT Body Mass Index 35.19 01/21/2025 11:38 AM EDT Plan of Treatment Health Maintenance Due Date Last Done Comments CT Colonography 1955 FIT DNA/Cologuard 1955 FIT 1955 FOBT 1955 Sigmoidoscopy 1955 COVID-19 Vaccine ( season) 2024 05/26/2023, 06/23/2021, 10/15/2020, Additional history exists Influenza Vaccine (#1) 2025 , 04/10/2023, 05/10/2022, Additional history exists Depression Monitoring 07/24/2025 01/21/2025, 025 Alcohol/Substance Use Screening 01/21/2026 01/21/2025 SDOH Screening 01/21/2026 01/21/2025 Tobacco Screening 01/21/2026 01/21/2025 Colonoscopy 01/27/2026 01/27/2021 Colorectal Cancer Screening 01/27/2026 Mammogram 01/13/2027 01/13/2025, 12/22, 01/02/2023, Additional history exists Lipid Panel 05/23/2028 05/23/2023, 10/23, 04/15/2021 DTaP/Tdap/Td Vaccines (3 - Td or Tdap) 04/15/2034 04/15/2024, 11/01/2013 Pneumococcal Vaccine: 50+ Years Completed 02/24/2022, 03/10/2020, 06/02/2015, Additional history exists Zoster Vaccines Completed 02/24/2022, 03/10/2020 Hepatitis C Screening Completed 05/23/2023 RSV Patients and Patients Aged 60 years or older Completed 08/21/2023 HIB Vaccines Aged Out No longer eligi [...] per day Blood Pressure No Mady Owen, Karen Blood Pressure < 140/90 Blood Pressure 112/64( 025 11:38 AM EDT) No Mady Owen PharmD Procedures Procedure Name Priority Date/Time Associated Diagnosis Comments BI MAMMOGRAM SCREENING TOMOSYNTHESIS BILATERAL Routine 01/13/2025 10:16 AM EDT HEPATITIS C ANTIBODY Routine 05/23/2023 10:55 AM EDT Need for hepatitis C screening test LIPID PANEL, STANDARD Routine 05/23/2023 10:55 AM EDT High cholesterol HM COLONOSCOPY Routine 01/27/2021 from Last 3 Months or Most Recently Relevant to Health Maintenance Results * BI Mammogram Screening Tomosynthesis Bilateral (01/13/2025 10:16 AM EDT) Anatomical Region Laterality Modality Breast Bilateral Mammography 01/13/2025 10:1 6 AM EDT Narrative 01/17/2025 10:25 AM EDT [facility] [address] [place] [address] Mammography Report Signed Patient: Elly Lockett MR#: [id number] : 1955 Acct:[id number] Age/Sex: 69 / F ADM Date: 01/13/25 Loc: HO.MAMMO Attending Dr: Jah Hernandez MD Ordering Physician: Jah Hernandez MD Results: 2Benign Fi ndings Date of Service: 01/13/25 Follow Up: 1 Year From [facility] Mammogram Procedure(s): MM tomosynthesis screening BI Accession Number(s): [id number] cc: Jah Hernandez MD EXAMINATION: MM SCREENING DIGITAL BREAST TOMOSYNTHESIS, BILATERAL CLINICAL INFORMATION: Screening. Asymptomatic. COMPARISON: Mammography: Comparison is made with available priors TECHNIQUE: Digital breast mammography with tomosynthesis is performed in both the craniocaudal and mediolateral oblique views along with computer-aided detection (CAD). FINDINGS: There are scattered areas of fibroglandular density (ACR BI-RADS breast composition Category b). Right marker clip. There are no significant masses, abnormal calcifications, or other abnormalities. MM/MM tomosynthesis screening BI IMPRESSION: No mammographic evidence of malignancy. ASSESSMENT: BI-RADS BI-RADS 2 - Benign Findings RECOMMENDATION: Routine annual mammography screening. 1 year F/U This examination should not preclude the clinical evaluation of a suspicious palpable abnormality. This patient's information was entered into a reminder system with a target due date for their next mammogram. Electronically signed by: Sapphire Ochoa DO 01/17/2025 10:23 AM EDT Dictated By: Sapphire Ochoa DO Signed By: <Electronically signed by Sapphire Ochoa DO in OV> 01/17/25 1023 DD/ 1016 TD/TT: 01/13/25 1037 Ruching Machine Operator: Procedure Note Carolter, Image - 01/17/2025 [facility] [address] [place] [address] Mammography Report Signed Patient: Malka Lockett#: [id number] : 1955cct:[id number] Age/Sex: 69 / FADM Date: 01/13/25 Loc: HO.MAMMO Attending Dr: Jah Hernandez MD Ordering Physician: Jah Hernandez MDResults: 2Benign Fi ndings Date of Service: 01/13/25Follow Up: 1 Year From Orig inal Mammogram Procedure(s): MM tomosynthesis screening BI Accession Number(s): [id number] cc: Jah Hernandez MD EXAMINATION: MM SCREENING DIGITAL BREAST TOMOSYNTHESIS, BILATERAL CLINICAL INFORMATION: Screening. Asymptomatic. COMPARISON: Mammography: Comparison is made with available priors TECHNIQUE: Digital breast mammography with tomosynthesis is performed in both the craniocaudal and mediolateral oblique views along with computer-aided detection (CAD). FINDINGS: There are scattered areas of fibroglandular density (ACR BI-RADS breast composition Category b). Right marker clip. There are no significant masses, abnormal calcifications, or other abnormalities. MM/MM tomosynthesis screening BI IMPRESSION: No mammographic evidence of malignancy. ASSESSMENT: BI-RADS BI-RADS 2 - Benign Findings RECOMMENDATION: Routine annual mammography screening. 1 year F/U This examination should not preclude the clinical evaluation of a suspicious palpable abnormality. This patient's information was entered into a reminder system with a target due date for their next mammogram. Electronically signed by: Sapphire Ochoa DO 01/17/2025 10:23 AM EDT Dictated By: Sapphire Ochoa DO Signed By: <Electronically signed by Sapphire Ochoa DO in OV> 01/17/25 1023 DD/ 1016 TD/TT: 01/13/25 1037 Ruching Machine Operator: us Jah Hernandez MD IMG BI PROCEDURES Final Result * Hepatitis C Ab (05/23/2023 10:55 AM EDT) Hepatitis C Antibody Nonreactive Nonreactive [facility] Comment:Antibodies to HCV no t detected; does not exclude early acuteHCV infection. Blood Venous blood specimen / Unknown 05/23/2023 10:55 AM EDT 05/23/2023 1:15 PM EDT us Jah Hernandez MD LAB BLOOD ORDERABLES Final Resul t [facility] [address] [place] [phone] * Lipid Panel, Standard (05/23/2023 10:55 AM EDT) Triglycerides 133 <150 mg/dL [facility] Comment:Desirable Triglyceri de: less than 150 mg/dLBorderline High Triglyceride 150-199 mg/dLHigh Triglyceride: 200-499 mg/dLVery High Triglyceride: greater than or equal to 5OO mg/dL Cholesterol 173 <200 mg/dL [facility] Comment:Desirable Cholestero l: less than 200 mg/dLBorderline High Cholesterol: 200-239 mg/dLHigh Cholesterol: greater than 239 mg/dL LDL Cholesterol Calculated 90 <100 mg/dL [facility] Comment:Desirable LDL: less than 100 mg/dLNear Optimal/Above Optimal LDL: 110- 129 mg/dLBorderline High LDL: 130-159 mg/dLHigh LDL: 160-189 mg/dLVery High LDL: greater than or equal to 190 mg/dL HDL Cholesterol 57 >40 mg/dL [facility] Comment:Desirable HDL: great er than 40 mg/dL Note: This HDL assay may give artificially low results in patients with liver disease. Blood Venous blood specimen / Unknown 05/23/2023 10:55 AM EDT 05/23/2023 1:15 PM EDT us Jah Hernandez MD LAB BLOOD ORDERABLES Final Resul t [facility] [address] [place] [address] [phone] * Hm Colonoscopy (01/27/2021) Colonoscopy performed Comment:repeat in 5 years us Historical Provider HEALTH MAINTENANCE Final Result from Last 3 Months or Most Recently Relevant to Health Maintenance Insurance [facility] STANDARD MEDICARE Care Teams Tax Advisor Relationship Specialty Start Date End Date Name, MD Jah [address] [place] [id number] PCP - General Family Medicine 08/03/15
[2025-02-10 11:40] LABS: Alanine Aminotransferase 21 U/L (0-31); Albumin Level 4.3 g/dL (3.5-5.0); Alkaline Phosphatase 200 U/L (39-117); Anion Gap 10 (12-20); Aspartate Amino Transferase 21 U/L (5-31); Blood Urea Nitrogen 11 mg/dL (9-16); Calcium 9.0 mg/dL (8.4-10.2); Carbon Dioxide 27 mmol/L (22-29); Chloride 111 mmol/L (96-108); Cholesterol 177 mg/dL (<200); Estimated Glomerular Filt Rate > 60; HDL Cholesterol 50 mg/dL (>40); Potassium 3.6 mmol/L (3.3-5.1); Sodium 144 mmol/L (135-145); Total Protein 7.2 g/dL (6.5-8.0); Triglycerides 156 mg/dL (<150)
== END 2025-02-10 09:40 | disposition home or self-care (01) ==
LOC: HO.HHCL 09:39
PROVIDERS: PCP Internal Medicine Geriatric Medicine; Visit Provider Internal Medicine Geriatric Medicine
DX: I10 Essential (primary) hypertension (principal); E78.00 Pure hypercholesterolemia, unspecified; Z79.899 Other long term (current) drug therapy
CPT/HCPCS: 36415; 80053; 80061

== ENCOUNTER 2025-04-08 08:01 | Outpatient (REF) | payer MEDICARE, MEDICAID, SELFPAY ==
--- NOTE | ~2025-04-08 | US_ITS ---
EXAMINATION: US ABDOMEN LIMITED HISTORY: Elevated alkaline phosphatase level TECHNIQUE: Real-time grayscale ultrasound imaging of the right upper quadrant was performed and images were reviewed. COMPARISON: Correlation is made with an unenhanced CT of the abdomen dated 04/09/2020. FINDINGS: Liver: The right lobe of the liver measures 14.6 cm in size. The left lobe of the liver measures 9.9 cm in size. The liver demonstrates increased echotexture, consistent with steatosis. No focal mass or intrahepatic biliary ductal dilatation is identified. There is normal hepatopedal flow in the portal vein. Gallbladder and biliary tree: The gallbladder is surgically absent. The common bile duct is normal in caliber measuring 4 mm. Right Kidney: The right kidney measures 10.1 cm in length and demonstrates a 10 mm cyst in the interpolar region. The right kidney is otherwise unremarkable, without evidence of solid masses, hydronephrosis, or calculi. Pancreas: The pancreatic head, neck, and body are unremarkable. The pancreatic tail is obscured by bowel gas. Abdominal aorta and inferior vena cava: The visualized portions of the abdominal aorta and inferior vena cava are normal in caliber. There is no free fluid in the right upper quadrant. US/US abdomen limited IMPRESSION: Hepatic steatosis. Electronically signed by: Hung Gonzáles MD 04/08/2025 08:53 AM EDT
== END 2025-04-08 08:02 | disposition home or self-care (01) ==
LOC: HO.US 08:01
PROVIDERS: PCP Internal Medicine Geriatric Medicine; Visit Provider Internal Medicine Geriatric Medicine
DX: R74.8 Abnormal levels of other serum enzymes (principal)
CPT/HCPCS: 76705

== ENCOUNTER → 2025-04-08 08:22 | Outpatient (BNV) | payer MEDICARE, MEDICAID, SELFPAY | PROVIDERS: PCP Internal Medicine Geriatric Medicine; Visit Provider Radiology Diagnostic Radiology | DX: K76.0 Fatty (change of) liver, not elsewhere classified (principal) | CPT/HCPCS: 76705 ==

== ENCOUNTER 2025-04-17 14:09 | Outpatient (AMB) | payer MEDICARE, MEDICAID, SELFPAY ==
--- NOTE | 2025-04-17 14:14 | A.OFFVIS_ITS ---
Vital Signs 04/17/25 14:26 Height 5 ft 3 in Weight 194 lb BMI 34.4 BP 130/70 Blood Pressure Location Rt brachial Position Sitting Intake Visit Reasons: Vaginal itching Intake Note: Patient complaining of inquinal fold itching for 2 weeks with odor. Did try over the counter medication but did not help. does have questions about what is HPV. Nutrition Therapist Name: voice box Information Interpreted: non-clinical & clinical Biofuels Plant Manager: Biofuels Plant Manager Present ([place]) Accompanied by: Self / Same As Patient Allergies AMBROSE Inhibitors Allergy (Mild, Verified 10/09/24 09:32) Rash Medication List - Last Reconciled 04/17/25 by Faby Seymour LPN albuterol sulfate 2.5 mg (3 mL) inhalation Q4-6H PRN albuterol sulfate 90 mcg/actuation 1 inh inhalation QID PRN albuterol sulfate 90 mcg/actuation 1 inh inhalation Q4H PRN calcium carbonate 1,200 mg (2 x 600 mg calcium (1,500 mg)) PO DAILY chlorthalidone 25 mg PO DAILY cholecalciferol (vitamin D3) (Vitamin D3) 10 mcg PO DAILY fluticasone propionate 50 mcg/actuation 1 spray intranasal DAILY montelukast 10 mg PO QPM omeprazole 20 mg PO DAILY pravastatin 20 mg PO DAILY sertraline 100 mg PO BID topiramate 50 mg PO DAILY triamcinolone acetonide 0.1% 1 appl topical BID Is last menstrual period known: No Post menopausal: Yes Do you need a note to return to daycare/school/sports/work: No HPI Comments Details: Patient is here today for with concerns for a vulvar skin rash for 2 weeks, use [id number] product without success bleed treating her symptoms. She was also concerned about a history of abnormal Pap and HPV. She denies any pelvic pain or urinary symptoms. Is sexually active on occasion has no vaginal concerns or abnormal discharge or odors. [facility] Medical History GERD (gastroesophageal reflux disease) Asthma Vaginal atrophy Hyperlipidemia Rheumatoid arthritis HTN (hypertension) Surgical History Hx of hand surgery H/O colonoscopy H/O knee surgery History of tubal ligation History of cholecystectomy Family History Mother HTN (hypertension) Family/Other History of breast cancer Social History Household Members: Family Alcohol intake: never Patient Tobacco Use Status: Never used Tobacco Gender identity: Female Female Reproductive History Menstrual Age of Menarche: 12 Menopause type: natural Total pregnancies: 3 Number of Living Children: 3 Review of Systems Const All systems reviewed & are unremarkable except as noted in HPI and below Physical Exam Vital Signs: Last Vital Signs BP 130/70 04/17/25 14:26 BMI result Body Mass Index 34.4 Const General: cooperative, healthy appearing and no acute distress Orientation/consciousness: patient oriented x3 GI Inspection: Yes normal to inspection Palpation (GI): Soft to palpation and Other GI palpation findings present (Nontender) Rectal Exam - Female: visual inspection normal Other: External inspection-fungal appearing rash in the left groin with the excoriations from scratching no distinct lesions General: Yes bladder normal to palpation External Female Exam: normal appearance of the urethra Speculum Exam - Vagina: normal appearance of the vagina, normal palpation, normal vaginal discharge and vagina atrophic Speculum Exam - Cervix: normal appearance of the cervix and normal palpation Bimanual exam- vagina & uterus: normal bimanual exam, normal palpation, uterine size normal, bladder normal to palpation, normal palpation, uterine shape normal and non-tender Bimanual Exam- Adnexa, other: normal adnexae Neuro General: patient oriented x3 Assessment & Plan Assessment & Plan (1) Pruritus of vulva: Code(s): L29.2 - Pruritus vulvae Plan Discussed: Last Pap smear was 05/16/2024 negative cytology and negative HPV results. chlamydia and BV panel obtained, await results for final plan of care. Rx sent in for topical use, reviewed directions for medication application. Skin care Instructions: Clean with warm water, no soaps, scented products. Use a cool cloth to the area several times a day if swollen and/or uncomfortable. Wear loose, cotton underclothes, avoid tight outer clothing. Air when possible. No coitus until well healed. Complete all medications as prescribed. Await final pending results for any changes in the plan of care. Call the office if there is no improvement in 24-48hrs., or if worsening symptoms. The patient expressed understanding and agreement with the plan of care. All of her questions and concerns were addressed to the best of my ability. Annual exam scheduled 05/22/2025. This note is constructed using voice recognition software. While every effort has been made to ensure accuracy, performance analyst errors may have been included. Orders: Orders CT NG by PCR Vag/Cerv Today N89.8 - Other specified noninflammatory disorders of vagina Bacterial Vaginosis Panel Today N89.8 - Other specified noninflammatory disorders of vagina Medications: New clotrimazole-betamethasone 1-0.05 % apply externally a thin coat to the area 1 appl topical BID 45 grams 0RF itching 7 days Coding Level of Care Code Est Pt Level 3 (56681) Diagnoses Pruritus of vulva L29.2
[2025-04-17 14:26] VITALS: BP 130/70; BMI 34.4
--- OUTSIDE RECORDS SUMMARY | 2025-04-17 18:36 | XMS_ITS | Clinical Summary ---
Author Organization [employer] Address [address] [facility] 7[address] [place] [address] Care Team Providers Care Poultry Hatchery Manager Name Role Phone Name, Jah JAY Primary Care Provider [phone] Allergies No known active allergies Medications Blood [...] morning. 30 tablet 2 05/22/20 23 Active LORazepam (Ativan) 0.5 MG tablet Use one table per mouth 30 minutes prior to boarding flights 4 tablet 05/09/20 24 Active albuterol (2.5 MG/3ML) 0.083% nebulizer solutionIndicat ions:Moderate asthma with acute exacerbation, unspecified whether persistent Take 3 mL by nebulization every 6 (six) hours if needed for shortness of breath or wheezing. 75 mL 3 05/15/20 24 Active cetirizine (ZyrTEC) 10 MG tablet TAKE 1 TABLET BY MOUTH EVERY MORNING 90 tablet 3 06/24/20 24 Active amLODIPine (Norvasc) 10 MG tabletIndicatio ns:Essential hypertension Take 1 tablet (10 mg) by mouth Once daily. 90 tablet 3 08/20/19 25 Active DULoxetine (Cymbalta) [address] capsule TOME 1 CAPSULA (60 MG) POR VIA ORAL EN LA MANANA DO NOT CRUSH OR CHEW 90 capsule 3 09/28/19 25 Active losartan (Cozaar) 100 MG tabletIndicatio ns:Essential hypertension TOME DIOGO TABLETA TODOS LOS NIELSEN 90 tablet 3 11/15/19 25 Active albuterol (Ventolin HFA) 108 (90 Base) MCG/ACT inhaler INHALE 2 PUFFS BY MOUTH EVERY 4 TO 6 HOURS IF NEEDED 18 g 3 01/22/20 25 Active fluticasone furoate (Arnuity Ellipta) 100 MCG/ACT inhaler Inhale 1 puff Once per day. Rinse mouth with water after use to reduce aftertaste and incidence of candidiasis. Do not swallow. 1 each 11 01/22/20 25 2025 Active atorvastatin (Lipitor) 20 MG tabletIndicatio ns:Essential hypertension TAKE 1 TABLET BY MOUTH EVERY DAY 90 tablet 1 03/17/20 25 Active omeprazole (PriLOSEC) [address] capsule TAKE 1 CAPSULE BY MOUTH BEFORE BREAKFAST 90 capsule 1 03/17/20 25 Active montelukast (Singulair) 10 MG tablet TOME 1 TABLETA POR VIA ORAL TODOS [place] NIELSEN AL ACOSTARSE 90 tablet 1 04/04/20 25 Active nabumetone (Relafen) 500 MG tablet TAKE 1 TABLET BY MOUTH TWICE A DAY 60 tablet 1 04/09/20 25 Active montelukast (Singulair) 10 MG tablet TOME 1 TABLETA POR VIA ORAL TODOS [place] NIELSEN AL ACOSTARSE 90 tablet 1 10/08/19 25 2024 Discontinued nabumetone (Relafen) 500 MG tablet TAKE 1 TABLET BY MOUTH TWICE A DAY 60 tablet 1 02/13/20 25 2024 Discontinued Active Problems Problem Noted Date Diagnosed Date Chronic back pain 10/03/2023 Overview (10/03/2023): Walker with wheels Migraine without status migrainosus, not intract able 05/22/2023 Tubular adenoma of colon 01/29/2021 Seasonal allergic reaction 01/08/2018 Disorder of vein 09/18/2017 Seborrheic keratoses 03/24/2017 Asthma 03/30/2016 History of cholecystectomy 03/30/2016 Seizure disorder 03/30/2016 Overview (05/22/2023): Abnormal EEG with [place] [facility] but [place] Neurology treated with Topamax for migraines Depressive disorder 08/25/2015 Essential hypertension 08/25/2015 Primary osteoarthritis involving multiple joints 08/25/2015 Resolved Problems Problem Noted Date Diagnosed Date Resolved Date Dizziness 10/24/2018 01/21/2025 Hypokalemia 08/01/2017 01/21/2025 Encounters Date Type Department Care Team Description 04/17/2025 Orders Only GENERIC EXTERNAL DATA DEPARTMENT Provider, Generic External Data 04/09/2025 Refill [facility] [place] [address] Jah Hernandez MD 04/08/2025 Orders Only [facility] [place] [address] Jah Hernandez MD 04/04/2025 Refill [facility] [place] [address] Jah Hernandez MD 03/25/2025 Telephone [facility] [address] [place] [address] Sonido Knight MA may recalls 03/15/2025 Refill [facility] [address] [place] [address] Jah Hernandez MD Essential hypertension 02/12/2025 Refill [facility] [place] [address] Jah Hernandez MD 02/10/2025 Results Follow-Up [facility] [place] [address] Jah Hernandez MD Comprehensive Metabolic Panel, Lipid Panel, Standard 01/21/2025 11:30 AM EDT Office Visit [facility] [place] [address] Jah Hernandez MD Essential hypertension (Primary Dx); High cholesterol; On statin therapy; Seborrheic keratoses; Asthma, unspecified asthma severity, unspecified whether complicated, unspecified whether persistent 01/21/2025 Travel 01/20/2025 Telephone [facility] [place] [address] Name, MD Jah Chart Prep from Last 3 Months Immunizations Immunization Administration [...] housing situation today? I have frieda elliott 01/21/[address] you [...] 1955 Sigmoidoscopy 1955 COVID-19 Vaccine ( season) 2025 05/26/2023, 06/23/2021, 10/15/2020, Additional history exists Depression Monitoring 07/24/2025 01/21/2025, 025 Alcohol/Substance Use Screening 01/21/2026 01/21/2025 SDOH Screening 01/21/2026 01/21/2025 Tobacco Screening 01/21/2026 01/21/2025 Colonoscopy 01/27/2026 01/27/2021 Colorectal Cancer Screening 01/27/2026 Mammogram 01/13/2027 01/13/2025, 12/22, 01/02/2023, Additional history exists Lipid Panel 02/10/2030 02/10/2025, 04/25, 11/19/2021, Additional history exists DTaP/Tdap/Td Vaccines (3 - Td or Tdap) 04/15/2034 04/15/2024, 11/01/2013 Pneumococcal Vaccine: 50+ Years Completed 02/24/2022, 03/10/2020, 06/02/2015, Additional history exists Zoster Vaccines Completed 02/24/2022, 03/10/2020 Hepatitis C Screening Completed 05/23/2023 RSV Patients and Patients Aged 60 years or older Completed 08/21/2023 Influenza Vaccine Completed 04/04/2025, , 04/10/2023, Additional history exists HIB Vaccines Aged Out [...] pressure once per day Blood Pressure No PuGracy wongsa, PharmD Blood Pressure < 140/90 Blood Pressure 112/64( 025 11:38 AM EDT) No Puia Mady, PharmD Procedures Procedure Name Priority Date/Time Associated Diagnosis Comments CHLAMYDIA/N. GONORRHOEAE RNA, TMA, UROGENITAL Routine 04/17/2025 4:20 PM EDT BACTERIAL VAGINOSIS PANEL Routine 04/17/2025 4:20 PM EDT US ABDOMEN LIMITED Routine 04/08/2025 8: 22 AM EDT LIPID PANEL, STANDARD Routine 02/10/2025 9:45 AM EDT Essential hypertension High cholesterol On statin therapy COMPREHENSIVE METABOLIC PANEL Routine 02/10/2025 9:45 AM EDT Essential hypertension High cholesterol On statin therapy BI MAMMOGRAM SCREENING TOMOSYNTHESIS BILATERAL Routine 01/13/2025 10:16 AM EDT HEPATITIS C ANTIBODY Routine 05/23/2023 10:55 AM EDT Need for hepatitis C screening test HM COLONOSCOPY Routine 01/27/2021 from Last 3 Months or Most Recently Relevant to Health Maintenance Results * Bacterial Vaginosis (04/17/2025 4:20 PM EDT) TRICHOMONAS VAGINALIS DETECTION BY PCR NOT DETECTED Not Detect [facility] BACTERIAL VAGINOSIS DETECTION BY PCR NEGATIVE Negative [facility] Comment:The BV organism targ ets of the Xpert Xpress MVP test can becommensal in women; Xpert Xpress MVP positive results forbacterial vaginosis should be considered in conjunction withother clinical and patient information to determine thedisease status. Organisms that are not detected by the XpertXpress MVP test have also been reported to be associatedwith BV and aerobic vaginitis.The Xpert Xpress MVP test performance has not been evaluatedin patients under the age of 14. ANNMARIE GROUP DETECTION BY PCR NOT DETECTED Not Detect [facility] Annmarie glab krusei PCR NOT DETECTED Not Detect [facility] 04/17/2025 4:20 PM EDT 04/17/2025 4:20 PM EDT us Generic External Data Provider LAB MICROBIOLOGY - GENERAL ORDERABLES Final Result [facility] [address] [place] [phone] * Chlamydia/N. Gonorrhoeae RNA, TMA, Urogenitial (04/17/2025 4:20 PM EDT) CT PCR NOT DETECTED Not Detect. [facility] Comment:A not detected test result does not exclude the possibilityof infection because test results can be affected byimproper specimen collection, concurrent antibiotic therapy,or the number of organisms in the specimen which may bebelow the sensitivity of the test. As with many diagnostictests, results from the Xpert CT/NG assay should beinterpreted in conjunction with other laboratory andclinical data available to the clinician.Xpert CT/NG performance has not been evaluated in patientsless than 14 years of age. The assay should not be used forthe evaluationof suspected sexual abuse or for other medico-legalindications. Additional testing is recommended in anycircumstance when false positive or false negative resultscould lead to adverse medical, social or psychologicalconsequences. NG PCR NOT DETECTED Not Detect. [facility] Comment:A not detected test result does not exclude the possibilityof infection because test results can be affected byimproper specimen collection, concurrent antibiotic therapy,or the number of organisms in the specimen which may bebelow the sensitivity of the test. As with many diagnostictests, results from the Xpert CT/NG assay should beinterpreted in conjunction with other laboratory andclinical data available to the clinician.Xpert CT/NG performance has not been evaluated in patientsless than 14 years of age. The assay should not be used forthe evaluationof suspected sexual abuse or for other medico-legalindications. Additional testing is recommended in anycircumstance when false positive or false negative resultscould lead to adverse medical, social or psychologicalconsequences. 04/17/2025 4:20 PM EDT 04/17/2025 4:20 PM EDT us Generic External Data Provider LAB MICROBIOLOGY - GENERAL ORDERABLES Final Result [facility] [address] [place] [phone] * US Abdomen Limited (04/08/2025 8:22 AM EDT) Anatomical Region Laterality Modality Abdomen Ultrasound 04/08/2025 8:22 AM EDT Narrative 04/08/2025 8:57 AM EDT [address] [address] Ultrasound Report Signed Patient: Elly Lockett MR#: [id number] : 1955 Acct:[id number] Age/Sex: 69 / F ADM Date: 04/08/25 Loc: HO.US Attending Dr: Jah Hernandez MD Ordering Physician: Jah Hernandez MD Date of Service: 04/08/25 Procedure(s): US abdomen limited Accession Number(s): [id number] cc: Jah Hernandez MD Reason for Exam: Elevated alkaline phosphatase level EXAMINATION: US ABDOMEN LIMITED HISTORY: Elevated alkaline phosphatase level TECHNIQUE: Real-time grayscale ultrasound imaging of the right upper quadrant was performed and images were reviewed. COMPARISON: Correlation is made with an unenhanced CT of the abdomen dated 04/09/2020. FINDINGS: Liver: The right lobe of the liver measures 14.6 cm in size. The left lobe of the liver measures 9.9 cm in size. The liver demonstrates increased echotexture, consistent with steatosis. No focal mass or intrahepatic biliary ductal dilatation is identified. There is normal hepatopedal flow in the portal vein. Gallbladder and biliary tree: The gallbladder is surgically absent. The common bile duct is normal in caliber measuring 4 mm. Right Kidney: The right kidney measures 10.1 cm in length and demonstrates a 10 mm cyst in the interpolar region. The right kidney is otherwise unremarkable, without evidence of solid masses, hydronephrosis, or calculi. Pancreas: The pancreatic head, neck, and body are unremarkable. The pancreatic tail is obscured by bowel gas. Abdominal aorta and inferior vena cava: The visualized portions of the abdominal aorta and inferior vena cava are normal in caliber. There is no free fluid in the right upper quadrant. US/US abdomen limited IMPRESSION: Hepatic steatosis. Electronically signed by: Hung Gonzáles MD 04/08/2025 08:53 AM EDT RP Dictated By: Hung Gonzáles MD Signed By: <Electronically signed by Hung Gonzáles MD in OV> 04/08/25 0853 DD/ 1 TD/TT: 04/08/25833 Director Of Conservation: Procedure Note Donotuseinterpreter, Image - 04/08/2025 [place] [address] Ultrasound Report Signed Patient: Malka Lockett#: [id number] : 1955cct:[id number] Age/Sex: 69 / FADM Date: 04/08/25 Loc: HO.US Attending Dr: Jah Hernandez MD Ordering Physician: Jah Hernandez MD Date of Service: 04/08/25 Procedure(s): US abdomen limited Accession Number(s): [id number] cc: Jah Hernandez MD Reason for Exam: Elevated alkaline phosphatase level EXAMINATION: US ABDOMEN LIMITED HISTORY: Elevated alkaline phosphatase level TECHNIQUE: Real-time grayscale ultrasound imaging of the right upper quadrant was performed and images were reviewed. COMPARISON: Correlation is made with an unenhanced CT of the abdomen dated 04/09/2020. FINDINGS: Liver: The right lobe of the liver measures 14.6 cm in size. The left lobe of the liver measures 9.9 cm in size. The liver demonstrates increased echotexture, consistent with steatosis. No focal mass or intrahepatic biliary ductal dilatation is identified. There is normal hepatopedal flow in the portal vein. Gallbladder and biliary tree: The gallbladder is surgically absent. The common bile duct is normal in caliber measuring 4 mm. Right Kidney: The right kidney measures 10.1 cm in length and demonstrates a 10 mm cyst in the interpolar region. The right kidney is otherwise unremarkable, without evidence of solid masses, hydronephrosis, or calculi. Pancreas: The pancreatic head, neck, and body are unremarkable. The pancreatic tail is obscured by bowel gas. Abdominal aorta and inferior vena cava: The visualized portions of the abdominal aorta and inferior vena cava are normal in caliber. There is no free fluid in the right upper quadrant. US/US abdomen limited IMPRESSION: Hepatic steatosis. Electronically signed by: Hung Gonzáles MD 04/08/2025 08:53 AM EDT RP Dictated By: Hung Gonzáles MD Signed By: <Electronically signed by Hung Gonzáles MD in OV> 04/08/2553 DD/ 1 TD/TT: 04/08/25833 Director Of Conservation: us Jah Hernandez MD IM US PROCEDURES Edited Result - Final * (ABNORMAL) Lipid Panel, Standard (02/10/2025 9:45 AM EDT) Triglycerides 156(H) <150 mg/dL [facility] Comment:Desirable Triglyceri de: less than 150 mg/dLBorderline High Triglyceride 150-199 mg/dLHigh Triglyceride: 200-499 mg/dLVery High Triglyceride: greater than or equal to 5OO mg/dL Cholesterol 177 <200 mg/dL [facility] Comment:Desirable Cholestero l: less than 200 mg/dLBorderline High Cholesterol: 200-239 mg/dLHigh Cholesterol: greater than 239 mg/dL LDL Cholesterol Calculated 96 <100 mg/dL [facility] Comment:Desirable LDL: less than 100 mg/dLNear Optimal/Above Optimal LDL: 110- 129 mg/dLBorderline High LDL: 130-159 mg/dLHigh LDL: 160-189 mg/dLVery High LDL: greater than or equal to 190 mg/dL HDL Cholesterol 50 >40 mg/dL [facility] Comment:Desirable HDL: great er than 40 mg/dL Note: This HDL assay may give artificially low results in patients with liver disease. Blood Venous blood specimen / Unknown 02/10/2025 9:45 AM EDT 02/10/2025 11:10 AM EDT us Jah Hernandez MD LAB BLOOD ORDERABLES Final Resul t [facility] [address] [place] [phone] * (ABNORMAL) Comprehensive Metabolic Panel (02/10/2025 9:45 AM EDT) Sodium 144 135 - 145 mmol/L [facility] Potassium 3.6 3.3 - 5.1 mmol/L [facility] Chloride 111(H) 96 - 108 mmol/L [facility] Carbon Dioxide 27 22 - 29 mmol/L [facility] Anion Gap 10(L) 12 - 20 [facility] Urea Nitrogen (BUN) 11 9 - 16 mg/dL [facility] Creatinine, Serum 0.75 0.5 - 1.4 mg/dL [facility] Estimated Glomerular Filt Rate >60 [facility] Comment:Chronic Kidney Disea se: Estimated GFR < 60 mL/min/[id number] Kidney Disease: Estimated GFR < 15 mL/min/1.73m2 Glucose 101 60 - 115 mg/dL [facility] Calcium 9.0 8.4 - 10.2 mg/dL [facility] Bilirubin, Total 0.8 0.0 - 1.0 mg/dL [facility] Aspartate Amino Transferase 21 5 - 31 U/L [facility] Alanine Aminotransferase 21 0 - 31 U/L [facility] Total Protein 7.2 6.5 - 8.0 g/dL [facility] Albumin Level 4.3 3.5 - 5.0 g/dL [facility] Alkaline Phosphatase 200(H) 39 - 117 U/L [facility] Blood Venous blood specimen / Unknown 02/10/2025 9:45 AM EDT 02/10/2025 11:10 AM EDT us Jah Hernandez MD LAB BLOOD ORDERABLES Final Resul t Performing Organization Address [facility] Co de Phone Number [facility] [address] [place] [phone] * BI Mammogram Screening Tomosynthesis Bilateral (01/13/2025 10:16 AM EDT) Anatomical Region Laterality Modality Breast Bilateral Mammography 01/13/2025 10:1 6 AM EDT Narrative 01/17/2025 10:25 AM EDT [facility] [address] [place] [address] Mammography Report Signed Patient: Elly Lockett MR#: [id number] : 1955 Acct:[id number] Age/Sex: 69 / F ADM Date: 01/13/25 Loc: HO.MAMMO Attending Dr: Jah Hernandez MD Ordering Physician: Jah Hernandez MD Results: 2Benign Fi ndings Date of Service: 01/13/25 Follow Up: 1 Year From Orig ina Mammogram Procedure(s): MM tomosynthesis screening BI Accession Number(s): [id number] cc: Jah Hernandez MD EXAMINATION: MM SCREENING [...] 01/17/25 1023 DD/ 1016 TD/TT: 01/13/25 1037 Director Of Conservation: Procedure Note Donotuseinterpreter, [facility] - [facility] [address] [place] [address] Mammography Report Signed Patient: Malka Lockett#: [id number] : 1955cct:[id number] Age/Sex: 69 / FADM Date: 01/13/25 Loc: HO.MAMMO Attending Dr: Jha Hernandez MD Ordering Physician: Jah Hernandez MDResults: 2Benign Fi ndings Date of Service: 01/13/25Follow Up: 1 Year From Orig inal Mammogram Procedure(s): MM tomosynthesis screening BI Accession Number(s): [id number] cc: Jah Hernandez MD EXAMINATION: MM SCREENING [...] 01/17/25 1023 DD/ 1016 TD/TT: 01/13/25 1037 Director Of Conservation: Jah Hernandez MD IMG BI PROCEDURES Final Result * Hepatitis C Ab (05/23/2023 10:55 AM EDT) Hepatitis C Antibody Nonreactive Nonreactive [facility] Comment:Antibodies to HCV no t detected; does not exclude early acuteHCV infection. Blood Venous blood specimen / Unknown 05/23/2023 10:55 AM EDT 05/23/2023 1:15 PM EDT us Jah Name LAB BLOOD ORDERABLES Final Resul t [facility] [address] [place] [phone] * Colonoscopy (01/27/2021) Colonoscopy performed Comment:repeat in 5 years Historical Provider HEALTH MAINTENANCE Final Result from Last 3 Months or Most Recently Relevant to Health Maintenance Insurance [facility] STANDARD MEDICARE * Guarantor: Elly Lockett Account Type Relation to Patient Date of Phone Billing Address Personal/Family Self [address] [place] Care Teams Poultry Hatchery Manager Relationship Specialty Start Date End Date Name, MD Jah [address] [place] [phone] PCP - General Family Medicine 08/03/15
--- OUTSIDE RECORDS SUMMARY | 2025-04-17 18:36 | XMS_ITS | Encounter Summary ---
Author Organization [employer] Address [address] [facility] [address]t [place] [address] Care Team Providers Care Media Sales Executive Name Role Phone Name, Jah JAY Primary Care Provider [phone] Encounter Details Date Type Department Care Team (Late st Contact Info) Description 04/17/2025 Orders Only GENERIC EXTERNAL DATA DEPARTMENT Provider, Generic External Data Social History Tobacco Use Types Packs/Day Years [...] as of this encounter Plan of Treatment Not on file documented as of this encounter Goals Goal Patient Goal Type Associated Problems Recent Progress Patient-Stated? Author Record your blood pressure once per day Blood Pressure No Puia, Mady, PharmD Blood Pressure < 140/90 Blood Pressure 112/64( 025 11:38 AM EDT) No Puia, Mady, PharmD documented as of this encounter Procedures Procedure Name Priority Date/Time Associated Diagnosis Comments BACTERIAL VAGINOSIS PANEL Routine 04/17/2025 4:20 PM EDT CHLAMYDIA/N. GONORRHOEAE RNA, TMA, UROGENITAL Routine 04/17/2025 4:20 PM EDT documented in this encounter Results * Chlamydia/N. Gonorrhoeae RNA, TMA, Urogenitial (04/17/2025 4:20 PM EDT) CT PCR NOT DETECTED Not Detect. [facility] Comment:A not detected test result does [...] psychologicalconsequences. NG PCR NOT DETECTED Not Detect. [facility] Comment:A not detected test result does [...] LAB MICROBIOLOGY - GENERAL ORDERABLES Final Result [facility] [address] [place] [phone] * Bacterial Vaginosis (04/17/2025 4:20 PM EDT) TRICHOMONAS VAGINALIS DETECTION BY PCR NOT DETECTED Not Detect [facility] BACTERIAL VAGINOSIS DETECTION BY PCR NEGATIVE Negative [facility] Comment:The BV organism targ ets of [...] DETECTION BY PCR NOT DETECTED Not Detect [facility] Annmarie glab krusei PCR NOT DETECTED Not Detect [facility] 04/17/2025 4:20 PM EDT 04/17/2025 4:20 PM EDT us Generic External Data Provider LAB MICROBIOLOGY - GENERAL ORDERABLES Final Result [facility] [address] [place] [phone] documented in this encounter Visit Diagnoses Not on filedocumented in this encounter Additional Health Concerns Assessment Noted Time PHQ-9 Depression Total Score: 18 01/21/ 025 1:02 PM EDT documented as of this encounter Care Teams Media Sales Executive Relationship Specialty Start Date End Date Name, MD Jah [address] [place] [address] PCP - General Family Medicine 08/03/15 documented as of this encounter
--- OUTSIDE RECORDS SUMMARY | 2025-04-17 18:36 | XMS_ITS | Encounter Summary ---
Author Organization [employer] Address [address] [facility] [address] [place] [address] Care Team Providers Care Carbon Coating Machine Operator Name Role Phone Name, Jah JAY Primary Care Provider Mady Owen PharmD Unavailable [phone] Reason for Visit * Reason Comments Med Change Request Encounter Details Date Type Department Care Team ([facility] Contact Info) Description 06/06/2024 Refill [facility] [address] [place], [place] [phone] Alonzo Shah MD [address] [place] [address] Moderate asthma with acute exacerbation, unspecified whether [...] per day Blood Pressure No Mady Owen, PharmD Blood Pressure < 140/90 Blood Pressure 112/64( 025 11:38 AM EDT) No Mady Owen, PharmD documented as of this encounter Visit Diagnoses Diagnosis Moderate asthma with acute exacerbation, unspecified whether persistent documented in this encounter Additional Health Concerns Assessment Noted Time PHQ-9 Depression Total Score: 5 10/03/19 24 3:41 PM EDT documented as of this encounter Care Teams Carbon Coating Machine Operator Relationship Specialty Start Date End Date Name, MD Jah [address] [place] [address] PCP - General Family Medicine 08/03/15 Mady Owen PharmD [address] [place] [address] Pharmacist Internal Medicine 01/25/22 08/19/24 documented as of this encounter
== END 2025-04-17 14:52 | disposition home or self-care (01) ==
LOC: HO.HWS 14:09
PROVIDERS: PCP Internal Medicine Geriatric Medicine; Visit Provider Advanced Practice Midwife
DX: L29.2 Pruritus vulvae (principal)
CPT/HCPCS: 99213

== ENCOUNTER 2025-04-17 14:09 | Outpatient (REF) | payer MEDICARE, MEDICAID, SELFPAY ==
[2025-04-17 17:43] LABS: Bacterial Vaginosis PCR NEGATIVE (Negative); Candida Group PCR NOT DETECTED (Not Detect); Candida glab krusei PCR NOT DETECTED (Not Detect); Trichomonas vaginalis PCR NOT DETECTED (Not Detect)
[2025-04-17 18:13] LABS: CT PCR NOT DETECTED (Not Detect.); NG PCR NOT DETECTED (Not Detect.)
== END 2025-04-17 14:10 | disposition home or self-care (01) ==
LOC: HO.LNP 14:09
PROVIDERS: PCP Internal Medicine Geriatric Medicine; Visit Provider Advanced Practice Midwife
DX: L29.2 Pruritus vulvae (principal); Z20.2 Contact with and (suspected) exposure to infections with a predominantly sexual mode of transmission; Z98.51 Tubal ligation status; Z79.899 Other long term (current) drug therapy
CPT/HCPCS: 81515; 87491; 87591; 99212

== ENCOUNTER 2025-05-22 08:52 | Outpatient (AMB) | payer MEDICARE, MEDICAID, SELFPAY ==
--- NOTE | 2025-05-22 09:07 | A.OFFVIS_ITS ---
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 Uses Dove liquid sensitive soap and Mohan paper. No pelvic pain, vaginal odor or discharge. Currently not sexually active. Attempting to eat a healthy diet with calcium and vitamin D and stays active with exercise. Last mammogram; 2024. Colonoscopy is UTD. Family history of breast cancer. [facility] Medical History GERD (gastroesophageal reflux disease) Asthma Vaginal atrophy Hyperlipidemia Rheumatoid arthritis HTN (hypertension) Surgical History Hx of hand surgery H/O colonoscopy H/O knee surgery History of tubal ligation History of cholecystectomy Family History Mother HTN (hypertension) Family/Other History of breast cancer Social History Household Members: Family Alcohol intake: never Patient Tobacco Use Status: Never used Tobacco Gender identity: Female Female Reproductive History Menstrual Age of Menarche: 12 control method: permanent sterilization Permanent Sterilization: BTL Total pregnancies: 3 Full term: 3 Number of Living Children: 3 Date of last pap smear: 06/05/17 ([place]) History of abnormal pap smear: Yes Date of Mammogram: 01/13/25 (Birad 2) Review of Systems Const All systems reviewed & are unremarkable except as noted in HPI and below Reports as per HPI Eyes Reports no additional complaints ENT Reports no additional complaints Card Reports no additional complaints Resp Reports no additional complaints GI Reports as per HPI and Reports no additional complaints Reports as per HPI Musc Reports no additional complaints Skin/Breast Reports as per HPI Neuro Reports no additional complaints Psych Reports no additional complaints Endo Reports no additional complaints Luke/Lymph Reports no additional complaints Aller/Immun Reports no additional complaints Physical Exam Vital Signs: Last Vital Signs BP 138/76 05/22/25 09:09 BMI result Body Mass Index 34.4 Const General: cooperative, healthy appearing, no acute distress, well developed and alert Orientation/consciousness: patient oriented x3 HEENT Head: Yes normal to inspection Eyes General: appearance normal, both eyes and all related structures Neck Neck: Yes normal visual inspection Thyroid: Thyroid normal Chest Chest palpation & inspection: normal inspection of the chest and other (no puckering, dimpling, peau de orange, retraction, discharge, masses) Breast/axilla inspection: normal inspection of the breasts Breast/axilla palpation: normal palpation of the breasts Resp Effort & Inspection: normal respiratory effort GI Inspection: Yes normal to inspection and Yes scar Palpation (GI): Soft to palpation Rectal Exam - Female: deferred General: Yes bladder normal to palpation External Female Exam: normal external appearance and normal appearance of the urethra Speculum Exam - Vagina: normal appearance of the vagina, normal palpation, normal vaginal discharge and vagina atrophic Speculum Exam - Cervix: normal appearance of the cervix and normal palpation Bimanual exam- vagina & uterus: normal bimanual exam, normal palpation, uterine size normal, bladder normal to palpation, normal palpation and non-tender Bimanual Exam- Adnexa, other: no masses Skin General skin exam: no rashes or lesions noted Rashes: no rashes Neuro General: patient oriented x3 Cognition (Neuro): normal cognition Extrem General: Yes normal to inspection Psych Attitude: cooperative Thought process: Normal thought process present Assessment & Plan Assessment & Plan (1) Encounter for well woman exam with routine gynecological exam: Code(s): Z01.419 - Encounter for gynecological examination (general) (routine) without abnormal findings Category: Medical Plan: Discussed: Current recommendations for pap smears per ASCCP guidelines. Breast awareness, periodic self breast exams and yearly mammogram. Maintain a healthy lifestyle, well balanced diet including Calcium 1,200 mg and Vitamin D 600 IU daily, and routine exercise. Contact the office with any postmenopausal bleeding. Patient verbalizes understanding and agrees to the plan of care. She was given opportunity to ask questions and all questions were answered to the best of my ability. RTO in 1 year for annual health center manager exam. This note is constructed using voice recognition software. While every effort has been made to ensure accuracy, time cycle operator errors may have been included. (2) Pruritus of vulva: Code(s): L29.2 - Pruritus vulvae Plan Discuss: Exam normal findings. Skin care continue to use mild soap and unscented products. No evidence of funnel rash. Common changes with aging skin include thinning, dryness, and itching. [id number] self-help remedies reviewed recommended vulvar such as product by claudio hassan. RX for topical steroid sent to Pharmacy, reviewed use intermittent for a significant symptoms. Medications: New mometasone 0.1% apply a thin coat to area until symptoms resolve. Discontinue after one week, may repeat if needed 1 appl topical DAILY PRN 45 grams 0RF itching Coding Level of Care Code Est Pt Prev Care >65y(95222) Diagnoses Encounter for well woman exam with routine gynecological exam Z01.419 Pruritus of vulva L29.2
[2025-05-22 09:09] VITALS: BP 138/76; BMI 34.4
--- OUTSIDE RECORDS SUMMARY | 2025-05-22 09:49 | XMS_ITS | Encounter Summary ---
Author Organization [employer] Address [address] [facility] 7[address] [place] [address] Care Team Providers Care Field Technical Assistant Name Role Phone Name, Jah JAY Primary Care Provider Mady Owen PharmD Unavailable [phone] Reason for Visit * Reason Comments Med Change Request Encounter Details Date Type Department Care Team ([facility] Contact Info) Description 06/06/[address] [facility] [address] [place], [place] [phone] Alonzo Shah MD [address] [place] [address] Moderate asthma with acute exacerbation, unspecified whether [...] your housing situation today? I have frieda elilott 10/03/[address] you li [...] Care Team (Late st Contact Info) Description 05/26/2025 2:00 PM EST Office Visit [facility] [address] [place] [address] documented as of this encounter Goals Goal Patient Goal Type Associated Problems Recent Progress Patient-Stated? Author Record your blood pressure once per day Blood Pressure No Mady Owen PharmCatalina Blood Pressure < 140/90 Blood Pressure 124/64( 025 10:22 AM EDT) No Mady Owen PharmD documented as of this encounter Visit Diagnoses Diagnosis Moderate asthma with acute exacerbation, unspecified whether persistent documented in this encounter Additional Health Concerns Assessment Noted Time PHQ-9 Depression Total Score: 5 10/03/19 24 3:41 PM EDT documented as of this encounter Care Teams Field Technical Assistant Relationship Specialty Start Date End Date Name, MD Jah [address] [place] [id number] PCP - General Family Medicine 08/03/15 Mady Owen PharmD [address] [place] [id number] Pharmacist Internal Medicine 01/25/22 08/19/24 documented as of this encounter
--- OUTSIDE RECORDS SUMMARY | 2025-05-22 09:49 | XMS_ITS | Clinical Summary ---
Author Organization [employer] Address [address] [facility] 7t [place] [address] Care Team Providers Care Sugar Laboratory Assistant Name Role Phone Name, Jah JAY Primary Care Provider [phone] Allergies No known active allergies Medications Blood [...] 24 Active albuterol (2.5 MG/3ML) 0.083% nebulizer solutionIndicati ons:Moderate asthma with acute exacerbation, unspecified whether persistent Take 3 mL by nebulization every 6 (six) hours if needed for shortness of breath or wheezing. 75 mL 3 05/15/20 24 Active cetirizine (ZyrTEC) 10 MG tablet TAKE 1 TABLET BY MOUTH EVERY MORNING 90 tablet 3 06/24/20 24 Active amLODIPine (Norvasc) 10 MG tabletIndication s:Essential hypertension Take 1 tablet (10 mg) by mouth Once daily. 90 tablet 3 08/20/19 25 Active DULoxetine (Cymbalta) [address] capsule TOME 1 CAPSULA (60 MG) POR VIA ORAL EN LA NAYELIANA DO NOT CRUSH OR CHEW 90 capsule 3 09/28/19 25 Active albuterol (Ventolin HFA) 108 (90 Base) MCG/ACT inhaler INHALE 2 PUFFS BY MOUTH EVERY 4 TO 6 HOURS IF NEEDED 18 g 3 01/22/20 25 Active fluticasone furoate (Arnuity Ellipta) 100 MCG/ACT inhaler Inhale 1 puff Once per day. Rinse mouth with water after use to reduce aftertaste and incidence of candidiasis. Do not swallow. 1 each 11 01/22/20 25 026 Active atorvastatin (Lipitor) 20 MG tabletIndication s:Essential hypertension TAKE 1 TABLET BY MOUTH EVERY [...] DAY 60 tablet 1 04/09/20 25 Active mineral oil-hydrophilic petrolatum (Aquaphor) ointment Apply topically if needed for dry skin. 396 g 04/23/20 25 026 Active losartan-hydroCH LOROthiazide (Hyzaar) 100-12.5 MG tabletIndication s:Essential hypertension Take 1 tablet by mouth Once per day. 30 tablet 11 04/30/20 25 026 Active losartan (Cozaar) 100 MG tabletIndication s:Essential hypertension TOME DIOGO TABLETA TODOS LOS NIELSEN 90 tablet 3 11/15/19 25 025 Discontin ued(Dose adjustmen t) Active Problems Problem Noted Date Diagnosed Date Chronic back pain 10/03/2023 Overview (10/03/2023): Walker with wheels Migraine without status migrainosus, not intract able 05/22/2023 Tubular adenoma of colon 01/29/2021 Seasonal allergic reaction 01/08/2018 Disorder of vein 09/18/2017 Seborrheic keratoses 03/24/2017 Asthma 03/30/2016 History of cholecystectomy 03/30/2016 Seizure disorder (CMS/HCC) 03/30/2016 Overview (05/22/2023): Abnormal EEG with neurology at [facility] 2015 but no Sz Neurology treated with Topamax for migraines Depressive disorder 08/25/2015 Essential hypertension 08/25/2015 Primary osteoarthritis involving multiple joints 08/25/2015 Resolved Problems Problem Noted Date Diagnosed Date Resolved Date Dizziness 10/24/2018 01/21/2025 Hypokalemia 08/01/2017 01/21/2025 Encounters Date Type Department Care Team Description [address] [address] Jah Hernandez MD Nurse Triage 05/14/2025 10:00 AM EDT Clinical Support [address] [address] Renuka Kamara, TREVER Essential hypertension 05/14/2025 Travel 05/09/[address] [address] Sonido Knight [place] nov recalls 04/30/2025 9:30 AM EDT Clinical Support [address] [address] Jazmyne Plasencia, TREVER Essential hypertension (Primary Dx) 04/30/[address] [address] Myrna Nova, RN 04/30/2025 Patient Outreach [address] [address] Jah Hernandez MD Medicare Annual Wellness Visit Initial (Annual wellness visit scheduled) 04/30/2025 Travel 04/23/2025 8:40 AM EDT Office Visit [facility] [address] [place] [phone] Alonzo Shah MD Onychomycosis (Primary Dx); Essential hypertension 04/23/2025 Travel 04/22/[address] [address] Jah Hernandez MD Results 04/22/2025 Telephone [facility] [address] [facility] [address] Name, MD Jah Referral 04/22/2025 Telephone [facility] [address] [facility] [place] [address] NameJah MD Referral 04/17/2025 Orders Only GENERIC EXTERNAL DATA DEPARTMENT Provider, Generic External Data 04/09/2025 Refill [facility] [address] [place] [address] Name, MD Jah 04/08/2025 Orders Only [facility] [address] [place] [address] Name, MD Jah 04/04/2025 Refill [facility] [address] [place] [address] NameJah MD 03/25/2025 Telephone [facility] [address] [place] [address] Sonido Knight [place] may recalls 03/15/2025 Refill [facility] [address] [place] [address] Name, MD Jah Essential hypertension from Last 3 Months Immunizations [...] Sign Reading Time Taken Comments Blood Pressure 124/64 05/14/2025 10:22 AM EDT Pulse 91 05/14/2025 10:20 AM EDT Temperature 36.5 C (97.7 F) 04/30/2025 9:51 AM EDT Respiratory Rate 18 05/14/2025 10:20 AM EDT Oxygen Saturation 95% 05/14/2025 10:20 AM EDT Room air Inhaled Oxygen Concentration - - Weight 94.1 kg (207 lb 6.4 oz) 05/14/2025 10:20 AM EDT Height 162.6 cm (5' 4 ) 01/21/2025 11:38 AM EDT Body Mass Index 35.6 01/21/2025 11:38 AM EDT Plan of Treatment Upcoming Encounters Date Type Department Care Team (Late st Contact Info) Description 05/26/2025 2:00 PM EST Office Visit [facility] [address] [place] [phone] Health Maintenance Due Date Last Done Comments CT Colonography 1955 FIT DNA/Cologuard 1955 FIT 1955 FOBT 1955 Sigmoidoscopy 1955 COVID-19 Vaccine ( season) 2025 05/26/2023, 06/23/2021, 10/15/2020, Additional history exists Depression Monitoring 07/24/2025 01/21/2025, 025 Alcohol/Substance Use Screening 01/21/2026 01/21/2025 SDOH Screening 01/21/2026 01/21/2025 Colonoscopy 01/27/2026 01/27/2021 Colorectal Cancer Screening 01/27/2026 Tobacco Screening 05/14/2026 05/14/2025 Mammogram 01/13/2027 01/13/2025, 12/22, 01/02/2023, Additional history [...] pressure once per day Blood Pressure No PuMady wong, PharmD Blood Pressure < 140/90 Blood Pressure 124/64( 025 10:22 AM EDT) No Mady Owen, PharmCatalina Procedures Procedure Name Priority Date/Time Associated Diagnosis [...] EDT Need for hepatitis C screening test COLONOSCOPY Routine 01/27/2021 from Last 3 Months or Most Recently Relevant to Health Maintenance Results * Bacterial Vaginosis (04/17/2025 4:20 PM EDT) TRICHOMONAS VAGINALIS DETECTION BY PCR NOT DETECTED Not Detect [facility] BACTERIAL VAGINOSIS DETECTION BY PCR NEGATIVE Negative [facility] Comment:The BV organism targ ets of [...] DETECTION BY PCR NOT DETECTED Not Detect [facility] Annmarie glab krusei PCR NOT DETECTED Not Detect [facility] 04/17/2025 4:20 PM EDT 04/17/2025 4:20 PM EDT us Generic External Data Provider LAB MICROBIOLOGY - GENERAL ORDERABLES Final Result [facility] [address] [place] [phone] * Chlamydia/N. Gonorrhoeae RNA, TMA, Urogenitial (04/17/2025 4:20 PM EDT) CT PCR NOT DETECTED Not Detect. [facility] Comment:A not detected test result does [...] psychologicalconsequences. NG PCR NOT DETECTED Not Detect. [facility] Comment:A not detected test result does [...] LAB MICROBIOLOGY - GENERAL ORDERABLES Final Result Performing Organization Address City/State/[facility] Co de Phone Number [facility] [address] [place] [phone] * US Abdomen Limited (04/08/2025 8:22 AM EDT) Anatomical Region Laterality Modality Abdomen Ultrasound 04/08/2025 8:22 AM EDT Narrative 04/08/2025 8:57 AM EDT [address] [address] Ultrasound Report Signed Patient: Elly Lockett MR#: [id number] : 1955 Acct:[id number] Age/Sex: 69 / F ADM Date: 04/08/25 Loc: HO.US Attending Dr: Jah Hernandez MD Ordering Physician: Jah Hernandez MD Date of Service: 04/08/25 Procedure(s): US abdomen limited Accession Number(s): [id number] cc: Name,Jah JAY Reason for Exam: Elevated alkaline phosphatase level [...] Hung Gonzáles MD 04/08/2025 08:53 AM EDT Dictated By: Hung Gonzáles MD Signed By: <Electronically signed by Hung Gonzáles MD in OV> 04/08/25 0853 DD/ 0822 TD/TT: 04/08/25 0834 Missile Facilities Repairer: Procedure Note Donotuseinterpreter, Image - 04/08/[address] [address] Ultrasound Report Signed Patient: Malka Lockett#: [id number] : 1955cct:[id number] Age/Sex: 69 / FADM Date: 04/08/25 Loc: HO.US Attending Dr: Jah Hernandze MD Ordering Physician: Jah Hernandez MD Date of Service: 04/08/25 Procedure(s): US abdomen limited Accession Number(s): [id number] cc: David,Jah JAY Reason for Exam: Elevated alkaline phosphatase level [...] Hung Gonzáles MD 04/08/2025 08:53 AM EDT Dictated By: Hung Gonzáles MD Signed By: <Electronically signed by Hung Gonzáles MD in OV> 04/08/25 0853 DD/ 0822 TD/TT: 04/08/25 0834 Missile Facilities Repairer: Jah Hernandez MD [facility] [place] PROCEDURES Edited Result - Final * (ABNORMAL) Lipid Panel, Standard (02/10/2025 9:45 AM EDT) Triglycerides 156(H) <150 mg/dL [facility] Comment:Desirable Triglyceri de: less than 150 mg/dLBorderline High Triglyceride 150-199 mg/dLHigh Triglyceride: 200-499 mg/dLVery High Triglyceride: greater than or equal to 5OO mg/dL Cholesterol 177 <200 mg/dL [facility] Comment:Desirable Cholestero l: less than 200 mg/dLBorderline High Cholesterol: 200-239 mg/dLHigh Cholesterol: greater than 239 mg/dL LDL Cholesterol Calculated 96 <100 mg/dL [facility] Comment:Desirable LDL: less than 100 mg/dLNear Optimal/Above Optimal LDL: 110- 129 mg/dLBorderline High LDL: 130-159 mg/dLHigh LDL: 160-189 mg/dLVery High LDL: greater than or equal to 190 mg/dL HDL Cholesterol 50 >40 mg/dL [facility] Comment:Desirable HDL: great er than 40 mg/dL Note: This HDL assay may give artificially low results in patients with liver disease. Blood Venous blood specimen / Unknown 02/10/2025 9:45 AM EDT 02/10/2025 11:10 AM EDT Jah Hernandez MD LAB BLOOD ORDERABLES Final Resul t [facility] [address] [place] [phone] * BI Mammogram Screening Tomosynthesis Bilateral (01/13/2025 10:16 AM EDT) Anatomical Region Laterality Modality Breast Bilateral Mammography 01/13/2025 10:1 6 AM EDT Narrative 01/17/2025 10:25 AM EDT [facility] [address] [place] [address] Mammography Report Signed Patient: Elly Lockett MR#: [id number] : 1955 Acct:[id number] Age/Sex: 69 / F ADM Date: 01/13/25 Loc: HO.MAMMO Attending Dr: Jah Hernandez MD Ordering Physician: Jah Hernandez MD Results: 2Benign Fi ndings Date of Service: 01/13/25 Follow Up: 1 Year From Orig inal Mammogram Procedure(s): MM tomosynthesis screening BI Accession Number(s): [id number] cc: Jah Hernandez MD EXAMINATION: MM SCREENING [...] 01/17/25 1023 DD/ 1016 TD/TT: 01/13/25 1037 Missile Facilities Repairer: Procedure Note Donotuseinterpreter, Image - 01/17/2025 [facility] [address] [place] [address] Mammography Report Signed Patient: Malka Lockett#: [id number] : 1955cct:[id number] Age/Sex: 69 / FADM Date: 01/13/25 Loc: JENNIFERO Attending Dr: Jah Hernandez MD Ordering Physician: Jah Hernandez MDResults: 2Benign Fi ndings Date of Service: 01/13/25Follow Up: 1 Year From Orig inal Mammogram Procedure(s): MM tomosynthesis screening BI Accession Number(s): [id number] cc: Jah Hernandez MD EXAMINATION: MM SCREENING [...] 01/17/25 1023 DD/ 1016 TD/TT: 01/13/25 1037 Missile Facilities Repairer: us Jah Hernandez MD IMG BI PROCEDURES Final Result * Hepatitis C Ab (05/23/2023 10:55 AM EDT) Hepatitis C Antibody Nonreactive Nonreactive [facility] Comment:Antibodies to HCV no t detected; does not exclude early acuteHCV infection. Blood Venous blood specimen / Unknown 05/23/2023 10:55 AM EDT 05/23/2023 1:15 PM EDT us Jah Hernandez MD LAB BLOOD ORDERABLES Final Resul t [facility] [address] [place] [phone] * Hm Colonoscopy (01/27/2021) Colonoscopy performed Comment:repeat in 5 years [facility] Provider HEALTH MAINTENANCE Final Result from Last 3 Months or Most Recently Relevant to Health Maintenance Insurance [facility] STANDARD [place] [phone] Care Teams Sugar Laboratory Assistant Relationship Specialty Start Date End Date Name, MD Jah [address] [place] [address] PCP - General Family Medicine 08/03/15
--- OUTSIDE RECORDS SUMMARY | 2025-05-22 09:49 | XMS_ITS | Encounter Summary ---
Author Organization [employer] Address [address] [facility] 7t [place] [address] Care Team Providers Care Burlap Worker Name Role Phone Name, Jah JAY Primary Care Provider [phone] Reason for Visit * Reason Onset Date Comments Nurse Triage 2025 Encounter Details Date Type Department Care Team ([facility] st Contact Info) Description 2025 Telephone [facility] [address] [place], [place] [phone] Name, MD Jah [address] [place], [place] [phone] Nurse Triage Social History Tobacco Use Types Packs/Day Years [...] AM EDT documented as of this encounter Miscellaneous Notes * Telephone Encounter - Caryl Younger RN - 2025 9:40 AM EDT T/C returned to pt utilizing BLS #[id number] to triage. Pt reports that, I told those people I don't want to talk to the nurse, I just want an appointment with my doctor . Pt reports back p[ain that she is having is her chronic back pain, nothing has changed. She states that she is calling because she received a letter that she is due for her 6 month follow up with PCP. Informed he is booking into July and I don't see openings, will send message to [place]. Pt reports she used to see PCP Q3 months and now it is Q6 months and she is 70yo. She doesn't think she is receiving adequate follow up. Explained that it is based on conditions. She is relatively healthy for her age which is a good thing! Shedoesn't have diabetes or conditions where she would need to be monitored every 3 months. Pt reportswhen she calls to book a follow up she is always told that PCP is busy and there are no slots. Explained the difference between follow up appts and sick or hospital slots and that if she was acutely i ll or something new was happening, we would be able to get her in but if she is calling requesting a routine follow up, there is a wait. Pt verbalized understanding but reports she may have to look for a new PCP. Explained that although we would be sad to see her go, we respect her decision. If shewanted to transfer to a different provider at [facility], that is always an option as well. Pt states willlet us know what she decides. * Telephone Encounter - Jah Champagne - 2025 9:02 AM EDT Symptom: Back Pain - Not From Injury Outcome: Transfer to a nurse or provider NOW! Reason: Age over 30: sudden AND severe upper back pain The caller accepted this outcome. Contact pt at [phone] documented in this encounter Plan of Treatment Upcoming Encounters Date Type Department Care Team (Late st Contact Info) Description 05/26/2025 2:00 PM EST Office Visit [facility] [address] [place] [address] documented as of this encounter Goals Goal Patient Goal Type Associated Problems Recent Progress Patient-Stated? Author Record your blood pressure once per day Blood Pressure No Puia, Mady, PharmD Blood Pressure < 140/90 Blood Pressure 124/64( 025 10:22 AM EDT) No Puia, Mady, PharmD documented as of this encounter Visit Diagnoses Not on filedocumented in this encounter Additional Health Concerns Assessment Noted Time PHQ-9 Depression Total Score: 18 025 1:02 PM EDT documented as of this encounter Care Teams Burlap Worker Relationship Specialty Start Date End Date Name, MD Jah [address] [place] [address] PCP - General Family Medicine 08/03/15 documented as of this encounter
== END 2025-05-22 09:51 | disposition home or self-care (01) ==
LOC: HO.HWS 08:52
PROVIDERS: PCP Internal Medicine Geriatric Medicine; Visit Provider Advanced Practice Midwife
DX: Z01.419 Encounter for gynecological examination (general) (routine) without abnormal findings (principal); L29.2 Pruritus vulvae
CPT/HCPCS: G0101

== ENCOUNTER 2025-05-28 11:42 | Outpatient (REF) | payer MEDICARE, MEDICAID, SELFPAY ==
--- OUTSIDE RECORDS SUMMARY | 2025-05-26 14:00 | XMS_ITS | Encounter Summary ---
Author Organization [employer] [facility] Address [address] [facility] [address] [place] [address] Care Team Providers Care Rn Chemical Dependency Name Role Phone Name, Jah JAY Primary Care Provider [phone] Reason for Referral * Imaging (Routine) - Authorized Specialty Diagnoses / Procedures Referred By Adwoa sanchez Referred To Contact Radiology Diagnoses Postmenopausal state Procedures BD DEXA Axial Ciarra Cummings MD [address] [place] [address] Phone: tel: fax: [address] Phone: tel: fax: Referral ID Status Reason Start Date Expiration Date V isits Requested Visits Authorized [id number] Authorized 05/27/2025 05/27/2026 1 1 Reason for Visit * Reason Comments Medicare Annual Wellness Visit Initial Encounter Details Date Type Department Care Team (Late st Contact Info) Description 05/26/2025 2:00 PM EST Office Visit [facility] MEDICINE [address] [place], [place] [phone] Ciarra Cummings MD [address] [place] [address] Encounter for general adult medical examination with abnormal findings (Primary Dx); At risk for falling; Postmenopausal state; Screening for diabetes mellitus; Screen for sexually transmitted diseases Social History Tobacco Use Types Packs/Day Years Used Date Smoking Tobacco: Never Smokeless Tobacco: Never Tobacco Cessation:Counseling Given: Not Answered Alcohol Use Standard Drinks/Week Comments Never 0 (1 standard drink = 0.6 oz pur e alcohol) Depression Answer Date Recorded Patient Health Questionnaire-9 Score 7 05/26/2025 Patient Health Questionnaire-9 Score 7 05/26/2025 Last PHQ-9: Questionnaire Data Not on file 1 07/26/2024 Housing Stability Answer Date Recorded What is [...] Date Recorded Patient Health Questionnaire-2 Score 2 05/26/2025 Internet Access Answer Date Recorded Internet Access Q1 Yes 01/21/2025 Internet Access Q2 Not on file 01/21/2025 Comments Unknown Sex and Gender Information Value Date Recorded Sex Assigned at Female 05/23/2022 10:14 AM EDT Legal Sex Female 10:14 AM EDT Gender Identity Female 05/23/2022 10:14 AM EDT Sexual Orientation Choose not to disclose 2021 10:14 AM EDT documented as of this encounter Last Filed Vital Signs Vital Sign Reading Time Taken Comments Blood Pressure 134/72 05/26/2025 2:14 PM EST Pulse 95 05/26/2025 2:14 PM EST Temperature 36.7 C (98 F) 05/26/2025 2:14 PM EST Respiratory Rate - - Oxygen Saturation 94% 05/26/2025 2:14 PM EST Inhaled Oxygen Concentration - - Weight 94.2 kg (207 lb 9.6 oz) 05/26/2025 2:14 P M EST Height 161 cm (5' 3.39 ) 05/26/2025 2:14 PM EST Body Mass Index 36.33 05/26/2025 2:14 PM EST documented in this encounter Functional Status * Over the past 2 weeks, how often have you been bothered by any of the following problems? Question Answer Date of Assessment Author Patient Health Questionnaire -2 Score 2 05/26/2025 2:29 PM EST Jazmyne Plasencia RN * Little interest or pleasure in doing things Answer Date of Assessment Author Several days 05/26/2025 2:29 PM EST Jazmyne Plasencia RN * Feeling down, depressed, or hopeless Answer Date of Assessment Author Several days 05/26/2025 2:29 PM Jazmyne Fernandez RN * Trouble falling or staying asleep, or sleeping too much Answer Date of Assessment Author Several days 05/26/2025 2:29 PM Jazmyne Fernandez RN * Feeling tired or having little energy Answer Date of Assessment Author Nearly every day 05/26/2025 2:29 PM Jazmyne Fernandez RN * Poor appetite or overeating Answer Date of Assessment Author Several days 05/26/2025 2:29 PM Jazmyne Fernandez RN * Feeling bad about yourself - or that you are a failure or have let yourself or your family down Answer Date of Assessment Author Not at all 05/26/2025 2:29 PM Jazmyne Fernandez RN * Trouble concentrating on things, such as reading the newspaper or watching television Answer Date of Assessment Author Not at all 05/26/2025 2:29 PM Jazmyne Fernandez RN * Moving or speaking so slowly that other people could have noticed? Or the opposite - being so fidgety or restless that you have been moving around a lot more than usual. Answer Date of Assessment Author Not at all 05/26/2025 2:29 PM Jazmyne Fernandez RN * Thoughts that you would be better off or hurting yourself in some way Answer Date of Assessment Author Not at all 05/26/2025 2:29 PM Jazmyne Fernandez RN * Patient Health Questionnaire-9 Score Answer Date of Assessment Author 7 05/26/2025 2:29 PM Jazmyne Fernandez RN * How difficult have these problems made it for you to do your work, take care of things at home, or get along with other people? Answer Date of Assessment Author Not difficult at all 05/26/2025 2:29 PM EST Jazmyne Munguia RN * Over the last 2 weeks, how often have you been bothered by any of the following problems? Question Answer Date of Assessment Author Feeling nervous, anxious, or on edge 1 05/26/2025 2:38 PM Jazmyne Fernandez RN Not being able to stop or co ntrol worrying 1 05/26/2025 2:38 PM Jazmyne Fernandez RN Worrying too much about diff erent things 0 05/26/2025 2:38 PM Jazmyne Fernandez RN Trouble relaxing 0 05/26/2025 2:38 PM Jazmyne Coley RN Being so restless that it is hard to sit still 0 05/26/2025 2:38 PM Jazmyne Fernandez RN Becoming easily annoyed or irritable 1 05/26/2025 2:38 PM Jazmyne Fernandez RN Feeling afraid as if somethi ng awful might happen 0 05/26/2025 2:38 PM Jazmyne Fernandez RN SAMUEL-7 Total Score 3 05/26/2025 2:38 PM Jazmyne Fernandez RN documented as of this encounter Progress Notes * Ciarra Cummings MD - 05/26/2025 2:00 PM EST Subjective Patient ID: Elly Doe is a 70 y.o. year old female who presents today for Medicare Annual Wellness Visit. Preferred language for medical information: [place] Citizen ; S hot knife foxing cutter Pradeep ID#[id number] Objective Vitals: 05/26/25 1414 BP: 134/72 BP Location: Left arm Patient Position: Sitting BP Cuff Size: Large adult Pulse: 95 Temp: 98 ??F (36.7 ??C) TempSrc: Oral SpO2: 94% Weight: 207 lb 9.6 oz (94.2 kg) Height: 5' 3.39 (1.61 m) Hearing Screening 1000Hz 2000Hz Right ear 25 Left ear 20 Allergies[1] Current Medications[2] Immunization History Administered Date(s) Administered Influenza High-dose Quadrivalent Preservative Free 04/06/2021, 05/10/2022 Influenza Injectable Quadrivalant Preservative Free IIV4 MDCK 05/18/2017 Influenza Quadrivalent Adjuvanted 03/26/2020, 04/10/2023 Influenza injectable quadrivalent IIV4 with preservative 06/02/2015 Influenza injectable quadrivalent preservative free 05/19/2016, 04/07/2020 Influenza, High Dose Seasonal, Preservative Free 04/16/2019, 04/09/2024 Influenza, IIV3, injectable 05/01/2014, 06/02/2015 Influenza, trivalent, adjuvanted 05/04/2018 Moderna Covid-19 Vaccine 12+ 09/17/2020, 10/15/2020, 06/23/2021, 05/26/2023 Pneumococcal Conjugate PCV 13 03/10/2020 Pneumococcal Polysaccharide PPSV23 06/02/2013, 06/02/2015, 02/24/2022 RSV Bivalent 08/21/2023 Tdap 11/01/2013, 04/15/2024 Zoster, Recombinant 03/10/2020, 02/24/2022 Medical History[3] Surgical History[4] Family History[5] Tobacco Use History[6] Patient Health Questionnaire-9 Score: 7 (05/26/2025 2:29 PM) Patient Health Questionnaire-2 Score: 2 (05/26/2025 2:29 PM) Thoughts that you would be better off or hurting yourself in some way: Not at all (05/26/2025 2:29 PM) SBIRT - Alcohol How many times in the past year have you had 5 or more (for men) or 4 or more (for women) drinks jim day?: None Score: 0 SBIRT - Drugs How many times in the past year have you used an illegal drug or used a prescription medication fornon-medical reasons?: None Score: 0 Social Drivers of Health Tobacco Use: Low Risk (05/26/2025) Tobacco Smoking Tobacco Use: Never Smokeless Tobacco Use: Never Passive Exposure: Not on file Alcohol Use: Not on file Food Insecurity: Low Risk (01/21/2025) Food Insecurity Within the past 12 months, you worried that your food would run out before you got money to buy more:: Never True Within the past 12 months,the food you bought just didn't last and you didn't have enough money to get more: : Never True Transportation Needs: Low Risk (01/21/2025) Transportation In the past 12 months, has lack of transportation kept you from medical appts, meetings, work or from getting things needed for daily living? : No Intimate Partner Violence: Not on file Depression: Mild depression (05/26/2025) Depression PHQ-9 Score: 7 Last PHQ-9: Flowsheet Data: 7 Last PHQ-9: Questionnaire Data: Not on file Housing Stability: Low Risk (01/21/2025) Housing Stability What is your housing situation today?: I have housing Think about the place you live. Do you have problems with any of the following? : None of the above Utilities: Low Risk (01/21/2025) Utilities In the past 12 months, has the electric, gas, oil or water Lost My Name threatened to shut off services in your home? : No Internet Access: Low Risk (01/21/2025) Internet Access Internet Access Q1: Yes Internet Access Q2: Not on file Cognitive Assessment (Mini-Cog): [x] Normal [] Abnormal Three Word Recall: 3 out of 3 Clock Drawin out of 2 Total Score: 5 out of 5 Mini-Cog sheet to be scanned into chart. Functional Assessment: Activities of Daily Living (Mike ADL) Bathing: independent Dressing: independent Toileting: independent Transferring: independent Continence: independent Feeding: independent Fall Risk Assessment: [] Low risk [x] High risk Feels unsteady when standing or walking? Yes Worries about falling? Yes Has fallen in past year? Yes Number of falls? More than 2 falls TUG completed: Yes Score: 30.45 seconds Patient Care Team: Patient Care Team: Jah Hernandez MD as PCP - General (Family Medicine) Advance Care Planning: Patient is unsure if they have completed this paperwork. Added to appointment notes for PCP visit on 06/17/25. Patient's current capacity: Full capacity Agent(s): Health Care Proxy paperwork is incomplete. [facility] Orders for Life-Sustaining Treatment (MOLST) is incomplete. Code Status: Assume Full Assessment/Plan Health Maintenance Topic Date Due COVID-19 Vaccine ( season) 2025 SDOH Screening 01/21/2026 Colorectal Cancer Screening 01/27/2026 Depression Screening 05/26/2026 Tobacco Screening 05/26/2026 Alcohol/Substance Use Screening 05/26/2026 Mammogram 01/13/2027 Lipid Panel 02/10/2030 DTaP/Tdap/Td Vaccines (3 - Td or Tdap) 04/15/2034 RSV Patients and Patients Aged 60 years or older Completed Influenza Vaccine Completed Pneumococcal Vaccine: 50+ Years Completed Zoster Vaccines Completed Hepatitis C Screening Completed RSV under 20 months Aged Out HIB Vaccines Aged Out Hepatitis B Vaccines Aged Out IPV Vaccines Aged Out Hepatitis A Vaccines Aged Out Meningococcal Vaccine Aged Out Rotavirus Vaccines Aged Out HPV Vaccines Aged Out Meningococcal B Vaccine Aged Out Patient refused the following health maintenance recommendations: COVID vaccine Patient also was due for FLU vaccine but pt reports they got vaccine at the pharmacy. Problem List Items Addressed This Visit None Counseling/Education [] Lung Cancer Screening Form Completed N/A [] Print After Visit Summary (AVS) [x] Advance directives handout provided [x] Schedule a visit to complete MOLST [x] Fall risk identified: [x] Work on strength/balance [x] Stay hydrated [x] Start daily vitamin D supplement [x] Reduce home hazards (handout provided) [] High risk medications identified - schedule FU with PCP to discuss [x] Follow-up with PCP Yes Jazmyne Plasencia RN I, Ciarra Cummings, have met with the patient, reviewed the RN note and agree with the assessment & plan of care as documented above. Summary and recommendations Follow up with Dr. Hernandez scheduled 06/17/25. Items to address: MOLST/advance directives Fall risk Screening labwork ordered on this visit Ciarra Cummings MD [1] No Known Allergies [2] Current Outpatient Medications: albuterol (2.5 MG/3ML) 0.083% nebulizer solution, Take 3 mL by nebulization every 6 (six) hours if needed for shortness of breath or wheezing., Disp: 75 mL, Rfl: 3 albuterol (Ventolin HFA) 108 (90 Base) MCG/ACT inhaler, INHALE 2 PUFFS BY MOUTH EVERY 4 TO 6 HOURS IF NEEDED, Disp: 18 g, Rfl: 3 amLODIPine (Norvasc) 10 MG tablet, Take 1 tablet (10 mg) by mouth Once daily., Disp: 90 tablet, Rfl: 3 atorvastatin (Lipitor) 20 MG tablet, TAKE 1 TABLET BY MOUTH EVERY DAY, Disp: 90 tablet, Rfl: 1 cetirizine (ZyrTEC) 10 MG tablet, TAKE 1 TABLET BY MOUTH EVERY MORNING, Disp: 90 tablet, Rfl: 3 DULoxetine (Cymbalta) [address] capsule, TOME 1 CAPSULA (60 MG) POR VIA ORAL EN LA MANANA DO NOT CRUSH OR CHEW, Disp: 90 capsule, Rfl: 3 fluticasone furoate (Arnuity Ellipta) 100 MCG/ACT inhaler, Inhale 1 puff Once per day. Rinse mouth with water after use to reduce aftertaste and incidence of candidiasis. Do not swallow., Disp: 1 each, Rfl: 11 losartan-hydroCHLOROthiazide (Hyzaar) 100-12.5 MG tablet, Take 1 tablet by mouth Once per day., Disp: 30 tablet, Rfl: 11 montelukast (Singulair) 10 MG tablet, TOME 1 TABLETA POR VIA ORAL TODOS LOS NIELSEN AL ACOSTARSE, Disp: 90 tablet, Rfl: 1 nabumetone (Relafen) 500 MG tablet, TAKE 1 TABLET BY MOUTH TWICE A DAY, Disp: 60 tablet, Rfl: 1 Blood Pressure Monitoring (Omron 3 Series BP Monitor) device, USE TO CHECK BLOOD PRESSURE EVERY DAY, Disp: , Rfl: D-400 10 MCG (400 UNIT) tablet, Take 1 tablet by mouth 1 (one) time each day. (Patient not taking: Reported on 05/26/2025), Disp: , Rfl: Diclofenac Sodium 1 % gel, Apply 2 grams topically to affected area(s) twice daily, Disp: , Rfl: LORazepam (Ativan) 0.5 MG tablet, Use one table per mouth 30 minutes prior to boarding flights, Disp: 4 tablet, Rfl: 0 meclizine (Antivert) 25 MG tablet, Take 1 tablet by mouth if needed in the morning, at noon, and atbedtime., Disp: , Rfl: mineral oil-hydrophilic petrolatum (Aquaphor) ointment, Apply topically if needed for dry skin., Disp: 396 g, Rfl: 0 omeprazole (PriLOSEC) [address] capsule, TAKE 1 CAPSULE BY MOUTH BEFORE BREAKFAST, Disp: 90 capsule,Rfl: 1 topiramate (Topamax) 50 MG tablet, Take 50 mg by mouth in the morning. (Patient not taking: Reported on 05/26/2025), Disp: 30 tablet, Rfl: 2 [3] No past medical history on file. [4] Past Surgical History: Procedure Laterality Date CHOLECYSTECTOMY [5] No family history on file. [6] Social History Tobacco Use Smoking Status Never Smokeless Tobacco Never documented in this encounter Plan of Treatment Upcoming Encounters Date Type Department Care Team (Late st Contact Info) Description 06/17/2025 1:15 PM EST Office Visit [facility] MEDICINE [address] [place] [address] Name, MD Jah [address] [place], [place] [phone] Scheduled Orders Name Type Priority Associated Diagnoses Orde r Schedule Hepatitis B Core Antibody, Total Lab Routine Screen for sexually transmitted diseases Expected: 05/27/2025 (Approximate), Expires: 05/26/2026 Hepatitis B Surface Antibody, Qualitative Lab Routine Screen for sexually transmitted diseases Expected: 05/27/2025 (Approximate), Expires: 05/26/2026 Hepatitis B Surface Antigen, EIA Lab Routine Screen for sexually transmitted diseases Expected: 05/27/2025 (Approximate), Expires: 05/26/2026 HIV-1/2 Antigen and Antibodies, Fourth Generation, with Reflexes Lab Routine Screen for sexually transmitted diseases Expected: 05/27/2025 (Approximate), Expires: 05/26/2026 BD DEXA Axial Imaging Routine Postmenopausal state Expected: 05/27/2025 (Approximate), Expires: 05/26/2026 documented as of this encounter Goals Goal Patient Goal Type Associated Problems Recent Progress Patient-Stated? Author Record your blood pressure once per day Blood Pressure No Puia, Mady, PharmD Blood Pressure < 140/90 Blood Pressure 134/72( 025 2:14 PM EST) No Puia, Mady, PharmD documented as of this encounter Procedures Procedure Name Priority Date/Time Associated Diagnosis Comments VITAMIN D,25-OH,TOTAL,IA Routine 05/28/2025 12:12 PM EST At risk for falling GLUCOSE Routine 05/28/2025 12:12 PM EST Screening for diabetes mellitus documented in this encounter Results * (ABNORMAL) Vitamin D, 25-Hydroxy, Total, Immunoassay (05/28/2025 12:12 PM EST) Vitamin D 25-OH Total 13.8(L) >30 ng/mL [facility] Comment: Health Based Reference Values*< 20 ng/mL [id number] ng/mL Insufficient> 30 ng/mL Sufficient*Justyna WREN. N Engl J Med. 2007;357:266-280There is no well-established upper level of normal vitamin Dlevels. Some laboratories use 50 ng/mL as an upper limit ofnormal. However, toxicity is patient-dependent and may occurat any level. Careful correlation with the patient'spresentation is necessary and, if there is concern forvitamin D toxicity, treatment should be consideredirrespective of the serum level.Care must be taken in interpreting Vitamin D results fromdifferent laboratories and methodologies. Published datademonstrated that results from patients undergoinghemodialysis may show a negative bias when tested withvarious automated 25-OH vitamin D assays when compared toLC-MS/MS.When testing samples from patients whose predominant form ofVitamin D is Vitamin D2, such as patients receiving VitaminD2 supplementation, results that are subtherapeutic shouldbe confirmed with another method such as LC-MS/MS. Blood Venous blood specimen / Unknown 05/28/2025 12:12 PM EST 05/28/2025 1:23 PM EST Ciarra Cummings MD LAB BLOOD ORDERABLES Final R esult [facility] [address] [place] [address] [phone] * (ABNORMAL) Glucose, Fasting (05/28/2025 12:12 PM EST) Glucose Fasting 117(H) 60 - 99 mg/dL [facility] Comment:A fasting glucose fr om 100-125 mg/dl is considered impaired(pre-diabetes). Blood Venous blood specimen / Unknown 05/28/2025 12:12 PM EST 05/28/2025 1:23 PM EST us Ciarra Cummings MD LAB BLOOD ORDERABLES Final R esult [facility] [address] [place] [phone] [phone] documented in this encounter Visit Diagnoses Diagnosis Encounter for general adult medical examination with abnormal findings- Primary At risk for falling Personal history of fall Postmenopausal state Asymptomatic postmenopausal status (age-related) (natural) Screening for diabetes mellitus Screen for sexually transmitted diseases Screening examination for venereal disease documented in this encounter Additional Health Concerns Assessment Noted Time PHQ-9 Depression Total Score: 7 05/26/20 25 2:29 PM EST A fall risk assessment has been complete d for the patient 05/26/2025 2:44 PM EST documented as of this encounter Care Teams Rn Chemical Dependency Relationship Specialty Start Date End Date Name, MD Jah [address] [place] [address] PCP - General Family Medicine 08/03/15 documented as of this encounter
[2025-05-28 14:18] LABS: Anion Gap 12 (12-20); Blood Urea Nitrogen 15 mg/dL (9-16); Calcium 9.2 mg/dL (8.4-10.2); Carbon Dioxide 28 mmol/L (22-29); Chloride 106 mmol/L (96-108); Estimated Glomerular Filt Rate > 60; Potassium 3.7 mmol/L (3.3-5.1); Sodium 142 mmol/L (135-145)
--- OUTSIDE RECORDS SUMMARY | 2025-05-28 14:23 | XMS_ITS | Encounter Summary ---
Author Organization [employer] Address [address] [facility] [address] [place] [address] Care Team Providers Care Cost Control Specialist Name Role Phone Name, Jah JAY Primary Care Provider [phone] Reason for Visit * Reason Onset Date Comments Nurse Triage 2025 Encounter Details Date Type Department Care Team ([facility] st Contact Info) Description 2025 Telephone [facility] MEDICINE [address] [place], [place] [phone] Name, MD Jah [address] [place] [address] Nurse Triage Social History Tobacco Use Types [...] EDT T/C returned to pt utilizing BLS #[id number] to triage. Pt reports that, I told [...] to transfer to a different provider at [facility], that is always an option as well. Pt states willlet us know what she decides. * Telephone Encounter - Jah Champagne - 2025 9:02 AM EDT Symptom: Back Pain - Not From Injury Outcome: Transfer to a nurse or provider NOW! Reason: Age over 30: sudden AND severe upper back pain The caller accepted this outcome. Contact pt at [phone] documented in this encounter Plan of Treatment Upcoming Encounters Date Type Department Care Team (Late st Contact Info) Description 06/17/2025 1:15 PM EST Office Visit [facility] MEDICINE [address] [place] [phone] Name, MD Jah [address] [place] [phone] documented as of this encounter Goals Goal [...] documented as of this encounter Care Teams Cost Control Specialist Relationship Specialty Start Date End Date Name, MD Jah [address] [place] [phone] PCP - General Family Medicine 08/03/15 documented as of this encounter
--- OUTSIDE RECORDS SUMMARY | 2025-05-28 14:23 | XMS_ITS | Encounter Summary ---
Author Organization [employer] Address [address] [facility] [address] [place] [address] Care Team Providers Care Educational Manager Name Role Phone Name, Jah JAY Primary Care Provider [phone] Encounter Details Date Type Department Care Team (Latest Contact Info) Description 05/26/2025 Travel Social History Tobacco Use Types Packs/Day Years [...] AM EDT documented as of this encounter Functional Status * Over the past 2 weeks, how often have you been bothered by any of the following problems? Question Answer Date of Assessment Author Patient Health Questionnaire -2 Score 2 05/26/2025 2:29 PM Jazmyne Fernandez, TREVER * Little interest or pleasure in doing things Answer Date of Assessment Author Several days 05/26/2025 2:29 PM Jazmyne Fernandez RN * Feeling down, depressed, or hopeless Answer Date of Assessment Author Several days 05/26/2025 2:29 PM Jazmyne Fernandez RN * Trouble falling or staying asleep, or sleeping too much Answer Date of Assessment Author Several days 05/26/2025 2:29 PM Jazmyne Fernandez, RN * Feeling tired or having little energy Answer Date of Assessment Author Nearly every day 05/26/2025 2:29 PM Jazmyne Fernandez RN * Poor appetite or overeating Answer Date of Assessment Author Several days 05/26/2025 2:29 PM Jazmyne Fernandez, RN * Feeling bad about yourself - or that you are a failure or have let yourself or your family down Answer Date of Assessment Author Not at all 05/26/2025 2:29 PM Jazmyne Fernandez RN * Trouble concentrating on things, such as reading the newspaper or watching television Answer Date of Assessment Author Not at all 05/26/2025 2:29 PM Jazmyne Fernandez, TREVER * Moving or speaking so slowly that other people could have noticed? Or the opposite - being so fidgety or restless that you have been moving around a lot more than usual. Answer Date of Assessment Author Not at all 05/26/2025 2:29 PM Jazmyne Fernandez, TREVER * Thoughts that you would be better [...] Not difficult at all 05/26/2025 2:29 PM Jazmyne Spencer RN * Over the last 2 weeks, [...] RN Trouble relaxing 0 05/26/2025 2:38 PM EST Jazmyne Ojeda RN Being so restless that it is hard to sit still 0 05/26/2025 2:38 PM Jazmyne Fernandez RN Becoming easily annoyed or irritable 1 05/26/2025 2:38 PM Jazmyne Fernandez RN Feeling afraid as if somethi ng awful might happen 0 05/26/2025 2:38 PM Jazmyne Fernandez RN SAMUEL-7 Total Score 3 05/26/2025 2:38 PM Jzamyne Fernandez RN documented as of this encounter Plan of Treatment Upcoming Encounters Date Type Department Care Team (Late st Contact Info) Description 06/17/2025 1:15 PM EST Office Visit [facility] MEDICINE [address] [place] [address] Name, MD Jah [address] [place], [place] [phone] documented as of this encounter Goals Goal Patient Goal Type Associated Problems Recent Progress Patient-Stated? Author Record your blood pressure once per day Blood Pressure No Puia, Mady, PharmD Blood Pressure < 140/90 Blood Pressure 134/72( 025 2:14 PM EST) No Mady Owen PharmD documented as of this encounter Visit Diagnoses Not on filedocumented in this encounter Additional Health Concerns Assessment Noted Time PHQ-9 Depression Total Score: 7 05/26/20 25 2:29 PM EST A fall risk assessment has been complete d for the patient 05/26/2025 2:44 PM EST documented as of this encounter Care Teams Educational Manager Relationship Specialty Start Date End Date Name, MD Jah [address] [place] [address] PCP - General Family Medicine 08/03/15 documented as of this encounter
--- OUTSIDE RECORDS SUMMARY | 2025-05-28 14:23 | XMS_ITS | Encounter Summary ---
Author Organization [email or web address] Address [address] [facility] 7[address] [place] [address] Care Team Providers Care Partner Integration Planner Name Role Phone Name, Jah JAY Primary Care Provider [phone] Mady Owen PharmD Unavailable [phone] Reason for Visit * Reason Comments Med Change Request Encounter Details Date Type Department Care Team ([facility] Contact Info) Description 06/06/2024 Refill [facility] [address], [place] [phone] Alonzo Shah MD [address] [place] [address] Moderate asthma with acute exacerbation, unspecified whether [...] Description 06/17/2025 1:15 PM EST Office Visit [facility] [address] [place] [phone] Name, MD Jah [address] [place] [phone] documented as of this encounter Goals Goal Patient Goal Type Associated Problems Recent Progress Patient-Stated? Author Record your blood pressure once per day Blood Pressure No Mady Owen, PharmD Blood Pressure < 140/90 Blood Pressure 134/72( 025 2:14 PM EST) No Gracy Owensa, PharmD documented as of this encounter Visit Diagnoses Diagnosis Moderate asthma with acute exacerbation, unspecified whether persistent documented in this encounter Additional Health Concerns Assessment Noted Time PHQ-9 Depression Total Score: 5 10/03/19 24 3:41 PM EDT documented as of this encounter Care Teams Partner Integration Planner Relationship Specialty Start Date End Date Name, MD Jah [address] [place] [phone] PCP - General Family Medicine 08/03/15 Mady Owen, PharmD [address] [place] [phone] Pharmacist Internal Medicine 01/25/22 08/19/24 documented as of this encounter
--- OUTSIDE RECORDS SUMMARY | 2025-05-28 14:23 | XMS_ITS | Clinical Summary ---
Author Organization [employer] Address [address] [facility] 7[address] [place] [address] Care Team Providers Care Scoop Machine Operator Name Role Phone Name, Jah JAY Primary Care Provider [phone] Allergies No known active allergies Medications Blood [...] morning. 30 tablet 2 05/22/20 23 Active Additional Information Patient not taking.Reported on 05/26/2025 LORazepam (Ativan) 0.5 MG tablet Use one [...] 03/30/2016 History of cholecystectomy 03/30/2016 Seizure disorder ([facility]) 03/30/2016 Overview (05/22/2023): Abnormal EEG with neurology at [facility] 2015 but no Sz Neurology treated with Topamax for migraines Depressive disorder 08/25/2015 Essential hypertension 08/25/2015 Primary osteoarthritis involving multiple joints 08/25/2015 Resolved Problems Problem Noted Date Diagnosed Date Resolved Date Dizziness 10/24/2018 01/21/2025 Hypokalemia 08/01/2017 01/21/2025 Encounters Date Type Department Care Team Description 05/26/2025 2:00 PM EST Office Visit [facility] [place] [address] Ciarra Cummings MD Encounter for general adult medical examination with abnormal findings (Primary Dx); At risk for falling; Postmenopausal state; Screening for diabetes mellitus; Screen for sexually transmitted diseases 05/26/2025 Travel 05/22/2025 Telephone [facility] [place] [address] Sonido Knight MA Appointment Request 2025 Telephone [facility] [place] [address] Jah Hernandez MD Nurse Triage 05/14/2025 10:00 AM EDT Clinical Support [facility] [place] [address] Renuka Kamara RN Essential hypertension 05/14/2025 Travel 05/09/2025 Telephone [facility] [place] [address] Sonido Knight MA nov recalls 04/30/2025 9:30 AM EDT Clinical Support [facility] [place] [address] Jazmyne Plasencia RN Essential hypertension (Primary Dx) 04/30/2025 Telephone [facility] [place] [address] Myrna Nova RN 04/30/2025 Patient Outreach [facility] [address] [place] [address] Jah Hernandez MD Medicare Annual Wellness Visit Initial (Annual wellness visit scheduled) 04/30/2025 Travel 04/23/2025 8:40 AM EDT Office Visit [facility] [place] [address] Alonzo Shah MD Onychomycosis (Primary Dx); Essential hypertension 04/23/2025 Travel 04/22/2025 Telephone [facility] MEDICINE [address] [facility] [place] [address] Jah Hernandez MD Results 04/22/2025 Telephone [facility] MEDICINE [address] [place] [phone] Jah Hernandez MD Referral 04/22/2025 Telephone [facility] MEDICINE [address] [place] [phone] Jah Hernandez MD Referral 04/17/2025 Orders Only GENERIC EXTERNAL DATA DEPARTMENT Provider, Generic External Data 04/09/2025 Refill [facility] MEDICINE [address] [place] [phone] Jah Hernandez MD 04/08/2025 Orders Only [facility] MEDICINE [address] [place] [phone] Jah Hernandez MD 04/04/2025 Refill [facility] MEDICINE [address] [place] [phone] Jah Hernandez MD 03/25/2025 Telephone [facility] MEDICINE [address] [place] [phone] Sonido Knight MA may recalls 03/15/2025 Refill [facility] MEDICINE [address] [place] [phone] Jah Hernandez MD Essential hypertension from Last [...] Bivalent 08/21/2023 Tdap 04/15/2024,11/01/2013 Zoster, Recombinant 02/24/2022,03/10/2020 Family History Relation Name Status Comments Maternal Grandmother Gardenia Doe Social History Tobacco Use Types Packs/Day Years [...] F) 05/26/2025 2:14 PM EST Respiratory Rate 18 05/14/2025 10:20 AM EDT Oxygen Saturation 94% 05/26/2025 2:14 PM EST Inhaled Oxygen Concentration - - Weight 94.2 kg (207 lb 9.6 oz) 05/26/2025 2:14 P M EST Height 161 cm (5' 3.39 ) 05/26/2025 2:14 PM EST Body Mass Index 36.33 05/26/2025 2:14 PM EST Plan of Treatment Upcoming Encounters Date Type Department Care Team (Late st Contact Info) Description 06/17/2025 1:15 PM EST Office Visit [facility] MEDICINE [address] [place] [phone] Name, MD Jah [address] [place] [address] Health Maintenance Due Date Last Done Comments CT Colonography 1955 FIT DNA/Cologuard 1955 FIT 1955 FOBT 1955 Sigmoidoscopy 1955 COVID-19 Vaccine ( season) 2025 05/26/2023, 06/23/2021, 10/15/2020, Additional history exists SDOH Screening 01/21/2026 01/21/2025 Colonoscopy 01/27/2026 01/27/2021 Colorectal Cancer Screening 01/27/2026 Alcohol/Substance Use Screening 05/26/2026 05/26/2025 Depression Screening 05/26/2026 05/26/2025, 05/26/20 Tobacco Screening 05/26/2026 05/26/2025 Mammogram 01/13/2027 01/13/2025, 12/22, 01/02/2023, Additional history [...] PharmCatalina Blood Pressure < 140/90 Blood Pressure 134/72( 025 2:14 PM EST) No Mady Owen PharmD Procedures Procedure Name Priority Date/Time Associated Diagnosis Comments VITAMIN D,25-OH,TOTAL,IA Routine 05/28/2025 12:12 PM EST At risk for falling GLUCOSE Routine 05/28/2025 12:12 PM EST Screening for diabetes mellitus BASIC METABOLIC PANEL Routine 05/28/2025 12:12 PM EST Essential hypertension CHLAMYDIA/N. GONORRHOEAE RNA, TMA, UROGENITAL Routine 04/17/2025 [...] Recently Relevant to Health Maintenance Results * (ABNORMAL) Vitamin D, 25-Hydroxy, Total, Immunoassay (05/28/2025 12:12 PM EST) Vitamin D 25-OH Total 13.8(L) >30 ng/mL [facility] Comment: Health Based Reference Values*< 20 ng/mL Ogpnymkrr20-88 ng/mL Insufficient> 30 ng/mL Sufficient*Justyna WREN. N [...] MD LAB BLOOD ORDERABLES Final R esult Performing Organization Address [facility] Co de Phone Number [facility] [address] [place] [phone] * (ABNORMAL) Glucose, Fasting (05/28/2025 12:12 PM EST) Glucose Fasting 117(H) 60 - 99 mg/dL [facility] Comment:A fasting glucose fr om 100-125 mg/dl is considered impaired(pre-diabetes). Blood Venous blood specimen / Unknown 05/28/2025 12:12 PM EST 05/28/2025 1:23 PM EST Ciarra Cummings MD LAB BLOOD ORDERABLES Final R esult Performing Organization Address [facility] Co de Phone Number [facility] [address] [place] [phone] * Basic Metabolic Panel (05/28/2025 12:12 PM EST) Sodium 142 135 - 145 mmol/L [facility] Potassium 3.7 3.3 - 5.1 mmol/L [facility] Chloride 106 96 - 108 mmol/L [facility] Carbon Dioxide 28 22 - 29 mmol/L [facility] Anion Gap 12 12 - 20 [facility] Urea Nitrogen (BUN) 15 9 - 16 mg/dL [facility] Creatinine, Serum 0.86 0.5 - 1.4 mg/dL [facility] Estimated Glomerular Filt Rate >60 [facility] Comment:Chronic Kidney Disea se: Estimated GFR < 60 mL/min/1.69x7Mhgafj Kidney Disease: Estimated GFR < 15 mL/min/1.73m2 Glucose 115 60 - 115 mg/dL [facility] Calcium 9.2 8.4 - 10.2 mg/dL [facility] Blood Venous blood specimen / Unknown 05/28/2025 12:12 PM EST 05/28/2025 1:23 PM EST Jah Hernandez MD LAB BLOOD ORDERABLES Final Resul t [facility] [address] [place] [phone] * Bacterial Vaginosis (04/17/2025 4:20 PM EDT) TRICHOMONAS VAGINALIS DETECTION BY PCR NOT DETECTED Not Detect [facility] BACTERIAL VAGINOSIS DETECTION BY PCR NEGATIVE Negative [facility] Comment:The BV organism targ ets [...] DETECTION BY PCR NOT DETECTED Not Detect [facility] Annmarie glab krusei PCR NOT DETECTED Not Detect [facility] 04/17/2025 4:20 PM EDT 04/17/2025 4:20 PM EDT us Generic External Data Provider LAB MICROBIOLOGY - GENERAL ORDERABLES Final Result [facility] [address] [place] [phone] * Chlamydia/N. Gonorrhoeae RNA, TMA, Urogenitial (04/17/2025 4:20 PM EDT) CT PCR NOT DETECTED Not Detect. [facility] Comment:A not detected test result [...] psychologicalconsequences. NG PCR NOT DETECTED Not Detect. [facility] Comment:A not detected test result [...] LAB MICROBIOLOGY - GENERAL ORDERABLES Final Result [facility] [address] [place] [phone] * US Abdomen Limited (04/08/2025 8:22 AM EDT) Anatomical Region Laterality Modality Abdomen Ultrasound 04/08/2025 8:22 AM EDT Narrative 04/08/2025 8:57 AM EDT [address] [address] Ultrasound Report Signed Patient: Elly Lockett MR#: [id number] : 1955 Acct:[id number] Age/Sex: 69 / F ADM Date: 04/08/25 Loc: HO.US Attending Dr: Jah Hernandez MD Ordering Physician: Jah Hernandez MD Date of Service: 04/08/25 Procedure(s): US abdomen limited Accession Number(s): [id number] cc: Jah Hernandez MD Reason for Exam: [...] in OV> 04/08/25 0853 DD/ 1 TD/TT: 04/08/2534 Cardiology Manager: Procedure Note Donotuseinterpreter, Image - 04/08/[address] [address] Ultrasound Report Signed Patient: Malka Lockett#: [id number] : 1955cct:[id number] Age/Sex: 69 / FADM Date: 04/08/25 Loc: HO.US Attending Dr: Jah Hernandez MD Ordering Physician: Jah Hernandez MD Date of Service: 04/08/25 Procedure(s): US abdomen limited Accession Number(s): [id number] cc: Jah Hernandez MD Reason for Exam: [...] 04/08/25 0853 DD/ 0822 TD/TT: 04/08/25 0834 Cardiology Manager: us Jah Hernandez MD IMG US PROCEDURES Edited Result - Final * (ABNORMAL) Lipid Panel, Standard (02/10/2025 9:45 AM EDT) Triglycerides 156(H) <150 mg/dL [facility] Comment:Desirable Triglyceri de: less than 150 mg/dLBorderline High Triglyceride 150-199 mg/dLHigh Triglyceride: 200-499 mg/dLVery High Triglyceride: greater than or equal to 5OO mg/dL Cholesterol 177 <200 mg/dL [facility] Comment:Desirable Cholestero l: less than 200 mg/dLBorderline High Cholesterol: 200-239 mg/dLHigh Cholesterol: greater than 239 mg/dL LDL Cholesterol Calculated 96 <100 mg/dL [facility] Comment:Desirable LDL: less than 100 mg/dLNear Optimal/Above Optimal LDL: 110- 129 mg/dLBorderline High LDL: 130-159 mg/dLHigh LDL: 160-189 mg/dLVery High LDL: greater than or equal to 190 mg/dL HDL Cholesterol 50 >40 mg/dL [facility] Comment:Desirable HDL: great er than 40 mg/dL Note: This HDL assay may give artificially low results in patients with liver disease. Blood Venous blood specimen / Unknown 02/10/2025 9:45 AM EDT 02/10/2025 11:10 AM EDT us Jah Hernandez MD LAB BLOOD ORDERABLES Final Resul t [facility] [address] [place] [address] [phone] * BI Mammogram Screening Tomosynthesis Bilateral (01/13/2025 10:16 AM EDT) Anatomical Region Laterality Modality Breast Bilateral Mammography 01/13/2025 10:1 6 AM EDT Narrative 01/17/2025 10:25 AM EDT [facility] [address] [place] [address] Mammography Report Signed Patient: Elly Lockett MR#: [id number] : 1955 Acct:[id number] Age/Sex: 69 / F ADM Date: 01/13/25 Loc: HO.MAMMO Attending Dr: Jah Hernandez MD Ordering Physician: Jah Hernandez MD Results: 2Benign Fi ndings Date of Service: 01/13/25 Follow Up: 1 Year From Orig ina Mammogram Procedure(s): MM tomosynthesis screening BI Accession Number(s): [id number] cc: Jah Hernandez MD EXAMINATION: MM SCREENING [...] 01/17/25 1023 DD/ 1016 TD/TT: 01/13/25 1037 Cardiology Manager: Procedure Note Donotuseinterpreter, Image - [facility]17/[facility] [address] [place] [address] Mammography Report Signed Patient: Malka Lockett#: [id number] : 1955cct:[id number] Age/Sex: 69 / FADM Date: 01/13/25 Loc: HO.MAMMO Attending Dr: Jah Hernandez MD Ordering Physician: Jah Hernandez MDResults: 2Benign Fi ndings Date of Service: 01/13/25Follow Up: 1 Year From Orig inal Mammogram Procedure(s): MM tomosynthesis screening BI Accession Number(s): [id number] cc: Jah Hernandez MD EXAMINATION: MM SCREENING [...] 01/17/25 1023 DD/ 1016 TD/TT: 01/13/25 1037 Cardiology Manager: us Jah Hernandez MD IMG BI PROCEDURES Final Result * Hepatitis C Ab (05/23/2023 10:55 AM EDT) Hepatitis C Antibody Nonreactive Nonreactive [facility] Comment:Antibodies to HCV no t detected; does not exclude early acuteHCV infection. Blood Venous blood specimen / Unknown 05/23/2023 10:55 AM EDT 05/23/2023 1:15 PM EDT us Jah Hernandez MD LAB BLOOD ORDERABLES Final Resul t [facility] [address] [place] [phone] [phone] * Hm Colonoscopy (01/27/2021) Colonoscopy performed Comment:repeat in 5 years Historical Provider HEALTH MAINTENANCE Final Result from Last 3 Months or Most Recently Relevant to Health Maintenance Insurance [facility] STANDARD MEDICARE * Guarantor: Elly Lockett Account Type Relation to Patient Date of Phone Billing Address Personal/Family Self [address] [place] Care Teams Scoop Machine Operator Relationship Specialty Start Date End Date Name, MD Jah [address] [place] [phone] PCP - General Family Medicine 08/03/15
[2025-05-29 08:10] LABS: HBS Num1 0.86 mIU/mL (0-7.99); HBc Num1 0.11 S/CO (0.00-0.79); HBsAGNum1 0.27 S/CO (0.00-0.99); HIV Num 1 0.05 S/CO (0.00-0.99); Hepatitis B Surface Antigen Negative (Negative); ~Hepatitis B Surface Antibody NONREACTIVE (Nonreactive)
== END 2025-05-28 11:43 | disposition home or self-care (01) ==
LOC: HO.HHCL 11:42
PROVIDERS: PCP Internal Medicine Geriatric Medicine; Visit Provider Family Medicine
DX: Z11.3 Encounter for screening for infections with a predominantly sexual mode of transmission (principal); Z13.1 Encounter for screening for diabetes mellitus; Z11.4 Encounter for screening for human immunodeficiency virus [HIV]; Z91.81 History of falling; I10 Essential (primary) hypertension
CPT/HCPCS: 36415; 80048; 82306; 82947; 86704; 86706; 87340; 87389